=== PATIENT | female | born 1955 | race Caucasian/White ===

== ENCOUNTER → 2020-04-29 | Outpatient (CLI) | payer OTHER ==
[2020-04-29 20:10] LABS: Chol/HDL Ratio 3.38
== END | disposition home or self-care (01) ==
LOC: LABWHC1 13:13
PROVIDERS: ATTEND Nurse Practitioner Adult Health
DX: E78.2 Mixed hyperlipidemia (principal)
CPT/HCPCS: 36415; 80061

== ENCOUNTER 2020-07-16 10:30 | Inpatient (IN) | payer OTHER ==
[2020-07-16] MEDS ORDERED: SODIUM CHLORIDE 0.9% 1,000 ML IV STA (10:52)
--- NOTE | 2020-07-16 10:55 | ED ---
General Adult HPI - General Source: patient, RN notes reviewed Mode of arrival: wheelchair Limitations: physical limitation <Cecilio Marquez - Last Filed: 07/16/20 13:41> <Jalen Cabrera - Last Filed: 07/16/20 14:07> - General Chief complaint: Skin/Abscess/Foreign Body Stated complaint: Abcess in armpit Time Seen by Provider: 07/16/20 10:39 - History of Present Illness Initial comments: 65-year-old female with a past medical history of heart failure, COPD, diabetes mellitus, hypertension presents to the emergency room for a chief of abscess in the left armpit. Patient reports has been ongoing for the past week. States it is draining on its own. She has not had any fevers. It is very painful to move the left arm because of this.Patient has no other complaints at this time including shortness of breath, chest pain, abdominal pain, nausea or vomiting, headache, or visual changes. (Cecilio Marquez) - Related Data Home Medications Medication Instructions Recorded Confirmed Beclomethasone Dipropionate [Qvar 2 puff INHALATION RT-BID 08/19/14 07/16/20 40 mcg/puff] Furosemide [Lasix] 40 mg PO BID 08/19/14 07/16/20 Spironolactone [Aldactone] 25 mg PO DAILY 08/19/14 07/16/20 carvediloL [Coreg] 6.25 mg PO BID 08/19/14 07/16/20 Aspirin 81 mg PO DAILY 07/16/20 07/16/20 Atorvastatin [Lipitor] 40 mg PO HS 07/16/20 07/16/20 Cholecalciferol [Vitamin D3 (25 5,000 unit PO DAILY 07/16/20 07/16/20 Mcg = 1000 Iu)] Insulin Glargine [Lantus] 50 unit SQ QAM 07/16/20 07/16/20 lisinopriL [Zestril] 5 mg PO DAILY 07/16/20 07/16/20 metFORMIN HCL 1,000 mg PO BID 07/16/20 07/16/20 Allergies Allergy/AdvReac Type Severity Reaction Status Date / Time strawberry Allergy Intermediate Rash/Hives Verified 07/16/20 13:13 codeine AdvReac Anaphylaxis Verified 07/16/20 13:13 Review of Systems ROS Other: All systems not noted in ROS Statement are negative. <Cecilio Marquez - Last Filed: 07/16/20 13:41> ROS Other: All systems not noted in ROS Statement are negative. <Jalen Cabrera - Last Filed: 07/16/20 14:07> ROS Statement: Those systems with pertinent positive or pertinent negative responses have been documented in the HPI. Past Medical History Past Medical History: Heart Failure, COPD, Diabetes Mellitus, Eye Disorder, Hearing Disorder / Deafness, Hypertension, Musculoskeletal Disorder, Rheumatoid Arthritis (RA) Additional Past Medical History / Comment(s): deaf R ear; partially blind R eye History of Any Multi-Drug Resistant Organisms: None Reported Past Surgical History: Cholecystectomy Past Anesthesia/Blood Transfusion Reactions: No Reported Reaction Past Psychological History: No Psychological Hx Reported Smoking Status: Current every day smoker, Heavy tobacco smoker Past Alcohol Use History: Occasional Past Drug Use History: None Reported - Past Family History Brother(s) Family Medical History: Cancer <Cecilio Marquez - Last Filed: 07/16/20 13:41> General Exam Limitations: physical limitation General appearance: alert, in no apparent distress Head exam: Present: atraumatic, normocephalic, normal inspection Eye exam: Present: normal appearance, PERRL, EOMI. Absent: scleral icterus, conjunctival injection, periorbital swelling ENT exam: Present: normal exam, mucous membranes moist Neck exam: Present: normal inspection, full ROM. Absent: tenderness, meningismu s, lymphadenopathy Respiratory exam: Present: normal lung sounds bilaterally. Absent: respiratory distress, wheezes, rales, rhonchi, stridor Cardiovascular Exam: Present: regular rate, normal rhythm, normal heart sounds. Absent: systolic murmur, diastolic murmur, rubs, gallop, clicks GI/Abdominal exam: Present: soft, normal bowel sounds. Absent: distended, tenderness, guarding, rebound, rigid Extremities exam: Present: other (Patient has multiple abscesses noted of the left axilla without specific draining point as well as cellulitis.) <Cecilio Marquez - Last Filed: 07/16/20 13:41> Course <Jalen Cabrera - Last Filed: 07/16/20 14:07> Vital Signs 07/16/20 07/16/20 10:33 12:09 Temperature 97.6 F Pulse Rate 90 80 Respiratory 18 17 Rate Blood Pressure 95/51 91/51 O2 Sat by Pulse 98 98 Oximetry - Reevaluation(s) Reevaluation #1: 07/16/20 14:05 MARYAN supervision: I did personally evaluate the patient she did present with complains one week of pain in the left axilla with spontaneous drainage the exam is consistent with hidradenitis. She does have tenderness palpation to have elevated white blood cell count left shift. She is diabetic with a blood sugar 180. She does demonstrate hyponatremia. I did discuss case with Dr. Miller patient will be admitted with surgical consultation. (Jalen Cabrera) Medical Decision Making - Lab Data Result diagrams: 07/16/20 11:14 07/16/20 11:14 <Cecilio Marquez - Last Filed: 07/16/20 13:41> - Lab Data Result diagrams: 07/16/20 11:14 07/16/20 11:14 <Jalen Cabrera - Last Filed: 07/16/20 14:07> - Medical Decision Making Vitals are stable. CBC shows leukocytosis with a left shift. White blood cell count is 28.9. CMP does show hyponatremia. There is also evidence of dehy dration, patient was given fluids although does have a history of heart failure so was gently rehydrated. Patient is borderline hypotensive with systolic blood pressure in the 90s however she states this is normal for her because she is on several antihypertensives. Patient does not meet sepsis criteria as her heart rate, resp rate, and temp are normal. Patient was started on IV antibiotics for abscess. I did incise and drain the area And there was purulent material expelled. Dr. Cabrera spoke who does accept this admission, recommends surgery consultation. call center dispatcher suregon consulted (Cecilio Marquez) - Lab Data Lab Results 07/16/20 07/16/20 07/16/20 Range/Units 11:14 11:14 11:14 WBC 28.9 H (3.8-10.6) k/uL RBC 4.49 (3.80-5.40) m/uL Hgb 14.0 (11.4-16.0) gm/dL Hct 42.7 (34.0-46.0) % MCV 95.1 (80.0-100.0) fL MCH 31.1 (25.0-35.0) pg MCHC 32.7 (31.0-37.0) g/dL RDW 13.5 (11.5-15.5) % Plt Count 208 (150-450) k/uL MPV 8.2 Neutrophils % (Manual) 87 % Band Neuts % (Manual) 6 % Lymphocytes % (Manual) 1 % Monocytes % (Manual) 6 % Neutrophils # (Manual) 26.80 H (1.3-7.7) k/uL Lymphocytes # (Manual) 0.29 L (1.0-4.8) k/uL Monocytes # (Manual) 1.73 H (0-1.0) k/uL Nucleated RBCs 0 (0-0) /100 WBC Manual Slide Review Performed RBC Morphology Normal Sodium 127 L (137-145) mmol/L Potassium 4.4 (3.5-5.1) mmol/L Chloride 99 (98-107) mmol/L Carbon Dioxide 19 L (22-30) mmol/L Anion Gap 9 mmol/L BUN 35 H (7-17) mg/dL Creatinine 1.15 H (0.52-1.04) mg/dL Est GFR (CKD-EPI)AfAm 58 (>60 ml/min/1.73 sqM) Est GFR (CKD-EPI)NonAf 51 (>60 ml/min/1.73 sqM) Glucose 180 H (74-99) mg/dL POC Glucose (mg/dL) (75-99) mg/dL POC Glu Hair Cutter ID Plasma Lactic Acid Mike 1.9 (0.7-2.0) mmol/L Calcium 8.4 (8.4-10.2) mg/dL Total Bilirubin 1.1 (0.2-1.3) mg/dL AST 22 (14-36) U/L ALT 19 (4-34) U/L Alkaline Phosphatase 131 H (38-126) U/L Total Protein 6.4 (6.3-8.2) g/dL Albumin 3.0 L (3.5-5.0) g/dL 07/16/20 Range/Units 13:28 WBC (3.8-10.6) k/uL RBC (3.80-5.40) m/uL Hgb (11.4-16.0) gm/dL Hct (34.0-46.0) % MCV (80.0-100.0) fL MCH (25.0-35.0) pg MCHC (31.0-37.0) g/dL RDW (11.5-15.5) % Plt Count (150-450) k/uL MPV Neutrophils % (Manual) % Band Neuts % (Manual) % Lymphocytes % (Manual) % Monocytes % (Manual) % Neutrophils # (Manual) (1.3-7.7) k/uL Lymphocytes # (Manual) (1.0-4.8) k/uL Monocytes # (Manual) (0-1.0) k/uL Nucleated RBCs (0-0) /100 WBC Manual Slide Review RBC Morphology Sodium (137-145) mmol/L Potassium (3.5-5.1) mmol/L Chloride (98-107) mmol/L Carbon Dioxide (22-30) mmol/L Anion Gap mmol/L BUN (7-17) mg/dL Creatinine (0.52-1.04) mg/dL Est GFR (CKD-EPI)AfAm (>60 ml/min/1.73 sqM) Est GFR (CKD-EPI)NonAf (>60 ml/min/1.73 sqM) Glucose (74-99) mg/dL POC Glucose (mg/dL) 169 H (75-99) mg/dL POC Glu Hair Cutter ID Reed Miller Plasma Lactic Acid Mike (0.7-2.0) mmol/L Calcium (8.4-10.2) mg/dL Total Bilirubin (0.2-1.3) mg/dL AST (14-36) U/L ALT (4-34) U/L Alkaline Phosphatase (38-126) U/L Total Protein (6.3-8.2) g/dL Albumin (3.5-5.0) g/dL Disposition Is patient prescribed a controlled substance at d/c from ED?: No <Cecilio Marquez - Last Filed: 07/16/20 13:41> <Jalen Cabrera - Last Filed: 07/16/20 14:07> Clinical Impression: Abscess, Leukocytosis, Hyponatremia Disposition: ADMITTED IP TO THIS HOSP
[2020-07-16] MEDS ORDERED: SODIUM CHLORIDE 0.9% 500 ML 500 ML IV STA (10:59)
[2020-07-16] MEDS ORDERED: cefTRIAXone IN SWFI 1,000 MG/10 ML SYRINGE IVP STA (10:59)
[2020-07-16 11:36] LABS: HCT 42.7 % (34.0-46.0); MCH 31.1 pg (25.0-35.0); MCHC 32.7 g/dL (31.0-37.0); MCV 95.1 fL (80.0-100.0); Mean Platelet Volume 8.2; Platelet Count 208 k/uL (150-450); RBC 4.49 m/uL (3.80-5.40); RDW 13.5 % (11.5-15.5); WBC 28.9 k/uL (3.8-10.6)
[2020-07-16 11:37] LABS: Calcium 8.4 mg/dL (8.4-10.2); Total Bilirubin 1.1 mg/dL (0.2-1.3); Total Protein 6.4 g/dL (6.3-8.2)
[2020-07-16 11:51] LABS: Potassium 4.4 mmol/L (3.5-5.1)
[2020-07-16 11:57] LABS: Band Neutrophils % 6 %; Lymphocytes # (M) 0.29 k/uL (1.0-4.8); Monocytes # (M) 1.73 k/uL (0-1.0); Neutrophils % (M) 87 %; Nucleated Red Blood Cells 0 /100 WBC (0-0); Total Cells Counted 100
[2020-07-16] MEDS ORDERED: LIDOCAINE 1% INJ 10MG/ML (20 ML MDV) SQ ONE (12:24)
[2020-07-16] MEDS ORDERED: KETOROLAC 15 MG/ML 1 ML VIAL IVP STA (12:24)
[2020-07-16] MEDS ORDERED: VANCOMYCIN IV PER PHARMACY 1 EACH MISC MISCELLANE PRN (12:36)
[2020-07-16] MEDS ORDERED: VANCOMYCIN 2,000 MG in SODIUM CHLORIDE 0.9% 500 ML 500 ML IVPB STA (12:40)
[2020-07-16] MEDS ORDERED: NALOXONE 0.4 MG/ML 1 ML VIAL IV PRN (12:51)
[2020-07-16] MEDS: SODIUM CHLORIDE 0.9% 1,000 ML IV SCH (13:36)
[2020-07-16 13:40] LABS: Glucose,Whole Blood 169 mg/dL (75-99)
[2020-07-16] MEDS: ACETAMINOPHEN TAB 325 MG TAB PO PRN (15:39)
[2020-07-16 17:37] LABS: Glucose,Whole Blood 170 mg/dL (75-99)
[2020-07-16] MEDS: carvediloL 6.25 MG TAB PO SCH (17:59)
[2020-07-16] MEDS: INSULIN ASPART (NovoLOG) 100 UNIT/ML VIAL SQ SCH ×2 (17:59→22:25)
[2020-07-16] MEDS ORDERED: RX INFO: IV CONTRAST WAS GIVEN 1 EACH MISC MISCELLANE PRN (18:19)
[2020-07-16] MEDS: FLUTICASONE 110 MCG INHALER INHALATION SCH (18:34)
[2020-07-16] MEDS: traMADol 50 MG TAB PO SCH (19:41)
[2020-07-16] MEDS: metroNIDAZOLE-NS PMX 500 MG in SALINE 1 100ML.BAG IVPB SCH (19:42)
--- NOTE | 2020-07-16 19:52 | CT ---
EXAMINATION TYPE: CT chest w con DATE OF EXAM: 07/16/2020 COMPARISON: 11/20/2012 HISTORY: non-healing necrotic wound to left axilla/chest CT DLP: 1015.3 mGycm Automated exposure control for dose reduction was used. CONTRAST: Performed with IV Contrast, patient injected with 80cc mL of Isovue 300. Images were obtained from the thoracic inlet to the diaphragm with IV contrast. The lungs are clear of infiltrate. There is no pleural effusion. There is no mediastinal adenopathy. Thoracic aorta is intact. There is no evidence of aneurysm or dissection. There are no hilar masses. There is no evidence of a pneumothorax. There is soft tissue air on the left anterior chest wall and extending into the inferior aspect of th e left upper arm. Soft tissue air extends inferiorly to the diaphragm in the subcutaneous fat. There is air beneath the pectoralis muscle. The largest collection of air is anterior to the left axilla in the subcutaneous fat. This measures 4.5 cm in thickness. There are spondylotic changes in the thoracic spine. There is anterior spurring in the lower thoracic spine with 20% anterior wedging of T11 vertebra. There is mild lower thoracic kyphosis.. IMPRESSION: Soft tissue air on the left chest wall extending into the left axilla consistent with a wound. Comple te extent of the air is not evaluated. Air extends into the upper arm. No evidence of a discrete drainable abscess fluid collection. No acute abnormality within the chest. There is clearing of the bilateral pleural effusions and right lower lobe pneumonia and interstitial pulmonary edema compared to old exam.
--- NOTE | 2020-07-16 20:50 | P.HPIM ---
History of Present Illness H&P Date: 07/16/20 Chief Complaint: cysts, abscess of the left axilla, severe hyponatremia, severe leukocytosis 65-year-old morbidly obese female with past medical history of cardiomyopathy, congestive heart failure, type 2 diabetes, hyperlipidemia, possible obstructive sleep apnea who had previous history of abscess who presented to the emergency department at [facility] today 07/16/2020 with complaint of for drainage abscess and discomfort in the left axilla. Remember having similar episode a few years ago of the right side ended up with sepsis and infection spread to the lower abdominal area ended up having to have a wound care and wound VAC with IV antibiotic for long time. Patient apparently started having drainage with a black spot in the axilla with smell coming from that area with copious amount of drainage for the last 48 hours. Developed to have fever and chills and overall not feeling well well she was seen and evaluated her white blood cell weren't 28th 1900 left shift surprisingly had severe hyponatremia with sodium of 127 lactic acid was only 1.9 blood sugar was 169 mildly stage III chronic kidney disease was found as well. She was giving 1 g of Vanco along with ceftriaxone culture was done patient was admitted to the hospital will be seen general surgery along with infectious disease. Patient does not remember having any injury no shaving no hair follicular problem recently in her opinion this is spontaneous happen by itself. Also the smell and the look of this area looks like more necrotic tissue as necrotizing fasciitis. We'll continue antibiotics and add anaerobic coverage also will involve infectious disease and CAT scan of the axilla will be done patient most likely will need to go for I and D. Review of Systems CONSTITUTIONAL: morbidly obese no acute respiratory distress EYES: No icterus sclerae, no conjunctivitis. EARS, NOSE, MOUTH, THROAT, and FACE: No sore throat, lymphadenopathy, carotid bruits or deformity. RESPIRATORY: decreased breaths on bilaterally with mild shortness of breath no cough or wheezes. CARDIOVASCULAR: No CP, Palpitation, PND, Orthopnea, or angina. GASTROINTESTINAL: No Abd pain, Nausea or vomiting, no Diarrhea or constipation, No GI Bleed, no distention or masses. GENITOURINARY: Negative for Hematuria or UTI, no kidney stones. INTEGUMENT/BREAST: Negative for any muscular injury with mild osteoarthritis.significant discomfort in the left axilla with significant drainage.. HEMATOLOGIC/LYMPHATIC: Negative for bleed or purpura. MUSCULOSKELTAL: Negative for Myalgia or arthralgia.more involvement of the left axilla with drainage NEURLOGICAL: No LOC, Sz or syncope, blurred vision dizziness or abnormality.. BEHAVIORAL/PSYCH: Negative. ENDOCRINE: Negative. family history: Father dying is 57 from motor vehicle accident: Mother dying in her 64 from cardiac event, patient had 2 brothers and one sister doesn't know much about them and never had any children. Social history: She smokes half to 1 pack a day for 40 years, no eye: Abuse, no drug use, does not use any CPAP or BiPAP at home no nebulizer or oxygen, patient has been and lives alone. 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 with wound vac 2018 Past Anesthesia/Blood Transfusion Reactions: No Reported Reaction Past Psychological History: Anxiety, Panic Disorder Smoking Status: Current every day smoker Past Alcohol Use History: Occasional Past Drug Use History: None Reported - Past Family History Brother(s) Family Medical History: Cancer Mother Family Medical History: Coronary Artery Disease (CAD), Diabetes Mellitus Medications and Allergies Home Medications Medication Instructions Recorded Confirmed Type Beclomethasone Dipropionate [Qvar 2 puff INHALATION RT-BID 08/19/14 07/16/20 History 40 mcg/puff] Furosemide [Lasix] 40 mg PO BID 08/19/14 07/16/20 History Spironolactone [Aldactone] 25 mg PO DAILY 08/19/14 07/16/20 History carvediloL [Coreg] 6.25 mg PO BID 08/19/14 07/16/20 History Aspirin 81 mg PO DAILY 07/16/20 07/16/20 History Atorvastatin [Lipitor] 40 mg PO HS 07/16/20 07/16/20 History Cholecalciferol [Vitamin D3 (25 5,000 unit PO DAILY 07/16/20 07/16/20 History Mcg = 1000 Iu)] Insulin Glargine [Lantus] 50 unit SQ QAM 07/16/20 07/16/20 History lisinopriL [Zestril] 5 mg PO DAILY 07/16/20 07/16/20 History metFORMIN HCL 1,000 mg PO BID 07/16/20 07/16/20 History Allergies Allergy/AdvReac Type Severity Reaction Status Date / Time strawberry Allergy Intermediate Rash/Hives Verified 07/16/20 15:24 codeine AdvReac Severe Anaphylaxis Verified 07/16/20 15:24 Physical Exam Vitals: Vital Signs Temp Pulse Pulse Resp BP BP Pulse Ox 07/16/20 14:35 97.8 F 83 20 98/56 99 07/16/20 12:09 80 17 91/51 98 07/16/20 10:33 97.6 F 90 18 95/51 98 Intake and Output 07/16/20 07/16/20 07/16/20 06:59 14:59 22:59 Other: Weight 130.635 kg General Appearance: Alert, cooperative, no distress, morbidly obese does not look in any distress and looked older than her age Neck HEENT: Supple, no lymphadenopathy, no thyroid enlargement, no carotid bruits. Lungs: decreased breath some bilaterally with fine rhonchi has mild crackles in the right base has mild expiratory wheezes. Chest Wall: decreasel expansion with deep inspiration no tenderness and no deformity was found on exam, no costochondral pain or discomfort.looking at the lateral side of the left side of the chest wall area close to the connection to the abscess in the axilla is a slight fluctuation with inflammation and infiltrate with no sign of a year under the skin. Heart: Regular rate and rhythm, S1, S2 normal, no murmur, rub or gallop. Back: Symmetric, no curvature, ROM normal, no CVA tenderness. Abdomen: Soft, non-tender, bowel sounds active all four quadrants, no masses, no organomegaly. Extremities: left axilla has involvement of 10 time 10 cm large abscess With a blackhead very large the drainage is very smelly and area looks necrotic at the time with slight lymph node enlarge in the axilla as well. Pulses: 2+ and symmetric. Skin: Skin color, texture, tugor normal, no rashes or lesions. Neurologic: Alert oriented x3 cranial nerves II through XII intact, no motor deficit, no abnormal balance or gait. Results CBC & Chem 7: 07/16/20 11:14 07/16/20 11:14 Labs: Abnormal Lab Results - Last 24 Hours (Table) 07/16/20 07/16/20 07/16/20 Range/Units 11:14 11:14 13:28 WBC 28.9 H (3.8-10.6) k/uL Neutrophils # (Manual) 26.80 H (1.3-7.7) k/uL Lymphocytes # (Manual) 0.29 L (1.0-4.8) k/uL Monocytes # (Manual) 1.73 H (0-1.0) k/uL Sodium 127 L (137-145) mmol/L Carbon Dioxide 19 L (22-30) mmol/L BUN 35 H (7-17) mg/dL Creatinine 1.15 H (0.52-1.04) mg/dL Glucose 180 H (74-99) mg/dL POC Glucose (mg/dL) 169 H (75-99) mg/dL Alkaline Phosphatase 131 H (38-126) U/L Albumin 3.0 L (3.5-5.0) g/dL Thrombosis Risk Factor Assmnt - DVT/VTE Prophylaxis DVT/VTE Prophylaxis: Pharmacologic Prophylaxis ordered, Mechanical Prophylaxis ordered - Choose All That Apply Each Factor Represents 1 point: Abnormal pulmonary function (COPD), Obesity (BMI >25) Each Risk Factor Represents 2 Points: Age 61-74 years Thrombosis Risk Factor Assessment Total Risk Factor Score: 4 Thrombosis Risk Factor Assessment Level: Moderate Risk Assessment and Plan Assessment: 1 sepsis secondary to abscess and most likely necrotizing fasciitis in the left axilla, continue current antibiotic infectious disease and general surgery will be involved. 2 abscess and necrotizing fasciitis in the left axilla: Patient will be going for CAT scan of the area will be kept nothing by mouth for possible surgery tomorrow to clear the whole thing my feared she might have some involvement spreading to the chest wall area and all waiting for culture continue vancomycin Rocephin and Flagyl for now. Continue pain management and topical care. 3 severe leukocytosis: Secondary to abscess and sepsis continue antibiotic repeat CBC in 24 hours. 4 severe hyponatremia: Most likely SIADH from the severity of the infection will watch sodium over the next 24 hours specially after treating infection. 5 severe congestive heart failure: Patient has been seen Dr. Caputo cardiology regular basis and has been on regular routine with Coreg along with furosemide, spironolactone and lisinopril continue medication. 6 type 2 diabetes: Not clear what her last A1c another A1c continue Accu-Chek with sliding scales coverage, hold metformin until CAT scan is completed the meanwhile continue patient on Levemir 50 units in the morning along with a CHS sliding scales and add 5-10 units of NovoLog before meals. 7 hyperlipidemia: Continue patient on atorvastatin 40 mg daily.. 8 chronic kidney disease: Stage III, repeat BUN/creatinine next 24 hours continue hydration for now. 9 GI prophylaxis: Patient will be on Pepcid 20 mg daily. 10 smoking cessation: Nicotine patch 14 mg be started for now. 11 DVT prophylaxis: Patient will be on heparin 5000 units subcutaneous every 8 hours. CODE STATUS: Full code. Admit patient to the inpatient service for more than 2 night stay.
[2020-07-16] MEDS ORDERED: metFORMIN 500 MG TAB PO SCH (21:00)
[2020-07-16] MEDS: FUROSEMIDE 40 MG TAB PO SCH (21:04)
[2020-07-16 21:11] LABS: Glucose,Whole Blood 232 mg/dL (75-99)
[2020-07-16] MEDS: ATORVASTATIN 40 MG TAB PO SCH (22:26)
[2020-07-17] MEDS: traMADol 50 MG TAB PO SCH ×4 (00:34→22:21)
[2020-07-17] MEDS: HEPARIN SODIUM,PORCINE 5,000 UNIT/ML 1 ML VIAL SQ SCH ×3 (00:35→16:39)
[2020-07-17] MEDS: metroNIDAZOLE-NS PMX 500 MG in SALINE 1 100ML.BAG IVPB SCH ×2 (02:06→10:10)
[2020-07-17] MEDS: VANCOMYCIN 2,000 MG in SODIUM CHLORIDE 0.9% 500 ML 500 ML IVPB SCH (05:54)
[2020-07-17] MEDS: SODIUM CHLORIDE 0.9% 1,000 ML IV SCH (05:54)
[2020-07-17 06:22] LABS: HCT 40.7 % (34.0-46.0); HGB 13.8 gm/dL (11.4-16.0); MCH 32.7 pg (25.0-35.0); MCHC 33.8 g/dL (31.0-37.0); MCV 96.5 fL (80.0-100.0); Platelet Count 251 k/uL (150-450); RBC 4.21 m/uL (3.80-5.40); RDW 13.2 % (11.5-15.5); WBC 26.6 k/uL (3.8-10.6)
[2020-07-17 06:34] LABS: Albumin 2.7 g/dL (3.5-5.0); Calcium 7.9 mg/dL (8.4-10.2); Potassium 3.9 mmol/L (3.5-5.1); Total Bilirubin 0.6 mg/dL (0.2-1.3); Total Protein 5.9 g/dL (6.3-8.2)
[2020-07-17 06:38] LABS: Glucose,Whole Blood 148 mg/dL (75-99)
[2020-07-17] MEDS: INSULIN DETEMIR (LEVEMIR) 100 UNIT/ML SYR SQ SCH (06:40)
[2020-07-17] MEDS: carvediloL 6.25 MG TAB PO SCH ×2 (06:40→16:46)
[2020-07-17] MEDS: INSULIN ASPART (NovoLOG) 100 UNIT/ML VIAL SQ SCH ×3 (06:40→20:15)
[2020-07-17] MEDS: CHOLECALCIFEROL 1,000 UNIT TAB PO SCH (08:27)
[2020-07-17] MEDS: ASPIRIN 81 MG PO SCH (08:27)
[2020-07-17] MEDS: FUROSEMIDE 40 MG TAB PO SCH (08:29)
[2020-07-17] MEDS: lisinopriL 5 MG TAB PO SCH (08:29)
[2020-07-17] MEDS: SPIRONOLACTONE 25 MG TAB PO SCH (08:29)
[2020-07-17] MEDS: NICOTINE 14MG/24HR PATCH TRANSDERM SCH (08:37)
[2020-07-17] MEDS: FLUTICASONE 110 MCG INHALER INHALATION SCH ×2 (08:49→19:35)
[2020-07-17] MEDS ORDERED: cefTRIAXone IN SWFI 1,000 MG/10 ML SYRINGE IVP SCH (09:00)
--- NOTE | 2020-07-17 10:44 | P.PN ---
Subjective Progress Note Date: 07/17/20 HISTORY OF PRESENT ILLNESS 65-year-old morbidly obese female with past medical history of cardiomyopathy, congestive heart failure, type 2 diabetes, hyperlipidemia, possible obstructive sleep apnea who had previous history of abscess who presented to the emergency department at [facility] today 07/16/2020 with complaint of for drainage abscess and discomfort in the left axilla. Remember having similar episode a few years ago of the right side ended up with sepsis and infection spread to the lower abdominal area ended up having to have a wound care and wound VAC with IV antibiotic for long time. Patient apparently started having drainage with a black spot in the axilla with smell coming from that area with copious amount of drainage for the last 48 hours. Developed to have fever and chills and overall not feeling well well she was seen and evaluated her white blood cell weren't 28th 1900 left shift surprisingly had severe hyponatremia with sodium of 127 lactic acid was only 1.9 blood sugar was 169 mildly stage III chronic kidney disease was found as well. She was giving 1 g of Vanco along with ceftriaxone culture was done patient was admitted to the hospital will be seen general surgery along with infectious disease. Patient does not remember having any injury no shaving no hair follicular problem recently in her opinion this is spontaneous happen by itself. Also the smell and the look of this area looks like more necrotic tissue as necrotizing fasciitis. We'll continue antibiotics and add anaerobic coverage also will involve infectious disease and CAT scan of the axilla will be done patient most likely will need to go for I and D. 07/17: Patient is seen today on the pediatric medical floor for follow-up. CAT scan revealed soft tissue air on the left chest wall extending into the left axilla consistent with wound. Complete extent of the air is not evaluated. Air extends into the upper arm. No evidence of discrete renal abscess fluid collection. Consults in place of general surgery and infectious disease. Patient encouraged to remain nothing by mouth until evaluated by general surgery. She has been afebrile, heart rate 89, blood pressure 98/47, pulse ox 90% on room air. Evelin BC 26.6, hemoglobin 13.8, platelet count 251. Sodium 131, potassium 3.9, chloride 102, CO2 19, BUN 43 and creatinine 1.08. Blood sugars running between 148 and 232. Alkaline phosphatase 128. Patient is currently on ceftriaxone, Flagyl and vancomycin. REVIEW OF SYSTEMS CONSTITUTIONAL: morbidly obese no acute respiratory distress. Denies fevers. EYES: No icterus sclerae, no conjunctivitis. EARS, NOSE, MOUTH, THROAT, and FACE: No sore throat, lymphadenopathy, carotid bruits or deformity. RESPIRATORY: decreased breaths on bilaterally with mild shortness of breath no cough or wheezes. CARDIOVASCULAR: No CP, Palpitation, PND, Orthopnea, or angina. GASTROINTESTINAL: No Abd pain, Nausea or vomiting, no Diarrhea or constipation, No GI Bleed, no distention or masses. GENITOURINARY: Negative for Hematuria or UTI, no kidney stones. INTEGUMENT/BREAST: Negative for any muscular injury with mild osteoarthritis.significant discomfort in the left axilla with significant drainage.. HEMATOLOGIC/LYMPHATIC: Negative for bleed or purpura. MUSCULOSKELTAL: Negative for Myalgia or arthralgia.more involvement of the left axilla with drainage NEURLOGICAL: No LOC, Sz or syncope, blurred vision dizziness or abnormality.. BEHAVIORAL/PSYCH: Negative. ENDOCRINE: Negative. PHYSICAL EXAMINATION General Appearance: Alert, cooperative, no distress, morbidly obese does not look in any distress and looked older than her age Neck HEENT: Supple, no lymphadenopathy, no thyroid enlargement, no carotid bruits. Lungs: decreased breath some bilaterally with fine rhonchi has mild crackles in the right base has mild expiratory wheezes. Chest Wall: decreasel expansion with deep inspiration no tenderness and no deformity was found on exam, no costochondral pain or discomfort.looking at the lateral side of the left side of the chest wall area close to the connection to the abscess in the axilla is a slight fluctuation with inflammation and infiltrate with no sign of a year under the skin. Heart: Regular rate and rhythm, S1, S2 normal, no murmur, rub or gallop. Back: Symmetric, no curvature, ROM normal, no CVA tenderness. Abdomen: Soft, non-tender, bowel sounds active all four quadrants, no masses, no organomegaly. Extremities: left axilla has involvement of 10 time 10 cm large abscess With a blackhead very large the drainage is very smelly and area looks necrotic at the time with slight lymph node enlarge in the axilla as well. Large dressing in place. Pulses: 2+ and symmetric. Skin: Skin color, texture, tugor normal, no rashes or lesions. Neurologic: Alert oriented x3 cranial nerves II through XII intact, no motor deficit, no abnormal balance or gait. ASSESSMENT AND PLAN 1 sepsis secondary to abscess and most likely necrotizing fasciitis in the left axilla, continue current antibiotic infectious disease and general surgery will be involved. Continue IV antibiotics, consult with general surgery and infectious disease. Patient to maintain nothing by mouth status. 2 abscess and necrotizing fasciitis in the left axilla. CAT scan as above. Wound culture in progress. Continue IV antibiotics 3 severe leukocytosis: Secondary to abscess and sepsis continue antibiotic repeat CBC in 24 hours. 4 severe hyponatremia: Most likely SIADH from the severity of the infection will watch sodium over the next 24 hours specially after treating infection. 5 severe congestive heart failure, probable diastolic: Patient has been seen Dr. Caputo cardiology regular basis and has been on regular routine with Coreg along with furosemide, spironolactone and lisinopril continue medication. 6 type 2 diabetes. A1c pending. Hold metformin for CAT scan. Continue Levemir 50 units in the morning along with sliding scales NovoLog. 7 hyperlipidemia: Continue patient on atorvastatin 40 mg daily.. 8 chronic kidney disease: Stage III, repeat BUN/creatinine next 24 hours con tinue hydration for now. 9 GI prophylaxis: Patient will be on Pepcid 20 mg daily. 10 smoking cessation: Nicotine patch 14 mg be started for now. 11 DVT prophylaxis: Patient will be on heparin 5000 units subcutaneous every 8 hours. CODE STATUS: Full code. DISCHARGE PLAN To be determined. Most likely return home. Impression and plan of care have been directed as dictated by the signing physician. Kailee Teran nurse practitioner acting as scribe for signing physician. Objective - Vital Signs Vital signs: Vital Signs Temp 97.6 F 07/17/20 02:13 Pulse 89 07/17/20 02:13 Resp 20 07/17/20 02:13 BP 98/47 07/17/20 02:13 Pulse Ox 98 07/17/20 02:13 Intake & Output 07/16/20 07/17/20 07/17/20 18:59 06:59 18:59 Intake Total 480 Balance 480 Weight 130.635 kg Intake: Oral 480 Other: Voiding Method Toilet # Voids 2 - Labs CBC & Chem 7: 07/17/20 06:08 07/17/20 06:08 Labs: Abnormal Lab Results - Last 24 Hours (Table) 07/16/20 07/16/20 07/16/20 Range/Units 11:14 11:14 13:28 WBC 28.9 H (3.8-10.6) k/uL Neutrophils # (Manual) 26.80 H (1.3-7.7) k/uL Lymphocytes # (Manual) 0.29 L (1.0-4.8) k/uL Monocytes # (Manual) 1.73 H (0-1.0) k/uL Sodium 127 L (137-145) mmol/L Carbon Dioxide 19 L (22-30) mmol/L BUN 35 H (7-17) mg/dL Creatinine 1.15 H (0.52-1.04) mg/dL Glucose 180 H (74-99) mg/dL POC Glucose (mg/dL) 169 H (75-99) mg/dL Calcium (8.4-10.2) mg/dL Alkaline Phosphatase 131 H (38-126) U/L Total Protein (6.3-8.2) g/dL Albumin 3.0 L (3.5-5.0) g/dL 07/16/20 07/16/20 07/17/20 Range/Units 17:35 21:10 06:08 WBC 26.6 H (3.8-10.6) k/uL Neutrophils # (Manual) (1.3-7.7) k/uL Lymphocytes # (Manual) (1.0-4.8) k/uL Monocytes # (Manual) (0-1.0) k/uL Sodium (137-145) mmol/L Carbon Dioxide (22-30) mmol/L BUN (7-17) mg/dL Creatinine (0.52-1.04) mg/dL Glucose (74-99) mg/dL POC Glucose (mg/dL) 170 H 232 H (75-99) mg/dL Calcium (8.4-10.2) mg/dL Alkaline Phosphatase (38-126) U/L Total Protein (6.3-8.2) g/dL Albumin (3.5-5.0) g/dL 07/17/20 07/17/20 Range/Units 06:08 06:35 WBC (3.8-10.6) k/uL Neutrophils # (Manual) (1.3-7.7) k/uL Lymphocytes # (Manual) (1.0-4.8) k/uL Monocytes # (Manual) (0-1.0) k/uL Sodium 131 L (137-145) mmol/L Carbon Dioxide 19 L (22-30) mmol/L BUN 43 H (7-17) mg/dL Creatinine 1.08 H (0.52-1.04) mg/dL Glucose 154 H (74-99) mg/dL POC Glucose (mg/dL) 148 H (75-99) mg/dL Calcium 7.9 L (8.4-10.2) mg/dL Alkaline Phosphatase 128 H (38-126) U/L Total Protein 5.9 L (6.3-8.2) g/dL Albumin 2.7 L (3.5-5.0) g/dL Microbiology - Last 24 Hours (Table) 07/16/20 14:35 Wound Culture - Preliminary Axilla - Left
[2020-07-17 12:02] LABS: Glucose,Whole Blood 146 mg/dL (75-99)
[2020-07-17] MEDS ORDERED: HYDROmorphone 1 MG/ML 1 ML SYRINGE IVP STA (12:11)
--- NOTE | 2020-07-17 12:41 | P.CONS ---
History of Present Illness - Reason for Consult Consult date: 07/17/20 Necrotizing fasciitis, cellulitis left axilla - History of Present Illness HISTORY OF PRESENT ILLNESS This is a 65-year-old female with extensive past medical history of cardiomyopathy, heart failure, diabetes mellitus type 2, hyperlipidemia, obstructive sleep apnea, morbid obesity. Patient presented with complaints of a draining abscess in the left axilla that apparently has been going on for a month and pain 10/10 with fever. Patient had increasing amount of drainage from the area over the past 24 hours. Patient presented to [facility] emergency center. She was afebrile, heart rate 90, blood pressure 95/51, pulse ox 98% on room air. CBC initially 28.9 was repeated 26.6. Sodium initially 127 repeated 131. BUN 35 and creatinine 1.15. Alkaline phosphatase 131. Lactic acid 1.9. CAT scan revealed soft tissue air on the left chest wall extending into the left axilla consistent with wound. Complete extent of the air is not evaluated. Air extends into the upper arm. No evidence of discrete renal abscess fluid collection. Consults in place of general surgery as well. Patient is currently on IV antibiotics with ceftriaxone, Flagyl, vancomycin. REVIEW OF SYSTEMS Constitutional: Reports fever, Reports chills, no night sweats. No weight change. No weakness, fatigue or lethargy. EENT: No headache. No nasal drainage or congestion. No epistaxis. No sore throat. Lungs: No shortness of breath, cough, no sputum production. No wheezing. Cardiovascular: No chest pain, no lower extremity edema. No lightheadedness or dizziness. No syncopal episodes. Abdominal: No abdominal pain. No nausea, vomiting. No diarrhea. No constipation. No loss of appetite. Genitourinary: No dysuria, increased frequency, urgency. No urinary retention. Musculoskeletal: No myalgias. No muscle weakness. Integumentary: Reports wounds. No rash or pruritus. Neurologic: No aphasia. No facial droop. No change in mentation. Endocrine: No abnormal blood sugars. PHYSICAL EXAMINATION Gen: This is a 65-year-old morbidly obese female. She is resting on the edge of the bed and appears to be comfortable. No respiratory distress noted. VS: Afebrile, heart rate 60, blood pressure 95/58, pulse ox 93% on room air. HEENT: Head is atraumatic, normocephalic. Pupils equal, round. Sclerae is anicteric. NECK: Supple. No JVD. No lymphadenopathy. No thyromegaly. LUNGS: Clear to auscultation. No wheezes or rhonchi. No intercostal retractions. HEART: Regular rate and rhythm. No murmur. ABDOMEN: Soft. Bowel sounds are present. No masses. No tenderness. EXTREMITIES: No pedal edema. No calf tenderness. The left axilla large dressing in place with large area with significant foul-smelling drainage. NEUROLOGICAL: Patient is awake, alert and oriented x3. Cranial nerves 2 through 12 are grossly intact. ASSESSMENT Sepsis secondary to left axilla abscess Diabetes mellitus type 2 Chronic kidney disease Tobacco use and dependence PLAN Discontinue ceftriaxone and Flagyl Continue vancomycin Add Unasyn 3 g IV piggyback every 6 hours Consult with general surgery for I&D and cultures Continue supportive care Further recommendations based on patient's clinical course Thank you kindly for this consultation The above dictated assessment and findings were discussed with Dr. Martínez. The impression and plan of care have been directed as dictated. Kailee Teran nurse practitioner acting as scribe for Dr. Martínez. 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 with wound vac 2018 Past Anesthesia/Blood Transfusion Reactions: No Reported Reaction Past Psychological History: Anxiety, Panic Disorder Smoking Status: Current every day smoker Past Alcohol Use History: Occasional Past Drug Use History: None Reported - Past Family History Brother(s) Family Medical History: Cancer Mother Family Medical History: Coronary Artery Disease (CAD), Diabetes Mellitus Medications and Allergies Home Medications Medication Instructions Recorded Confirmed Type Beclomethasone Dipropionate [Qvar 2 puff INHALATION RT-BID 08/19/14 07/16/20 History 40 mcg/puff] Furosemide [Lasix] 40 mg PO BID 08/19/14 07/16/20 History Spironolactone [Aldactone] 25 mg PO DAILY 08/19/14 07/16/20 History carvediloL [Coreg] 6.25 mg PO BID 08/19/14 07/16/20 History Aspirin 81 mg PO DAILY 07/16/20 07/16/20 History Atorvastatin [Lipitor] 40 mg PO HS 07/16/20 07/16/20 History Cholecalciferol [Vitamin D3 (25 5,000 unit PO DAILY 07/16/20 07/16/20 History Mcg = 1000 Iu)] Insulin Glargine [Lantus] 50 unit SQ QAM 07/16/20 07/16/20 History lisinopriL [Zestril] 5 mg PO DAILY 07/16/20 07/16/20 History metFORMIN HCL 1,000 mg PO BID 07/16/20 07/16/20 History Allergies Allergy/AdvReac Type Severity Reaction Status Date / Time strawberry Allergy Intermediate Rash/Hives Verified 07/16/20 15:24 codeine AdvReac Severe Chest Pain Verified 07/17/20 12:15 Physical Exam Vitals: Vital Signs Temp Pulse Pulse Resp BP BP Pulse Ox 07/17/20 08:00 97.9 F 60 24 95/58 93 L 07/17/20 02:13 97.6 F 89 20 98/47 98 07/16/20 20:10 97.8 F 84 20 92/59 97 07/16/20 14:35 97.8 F 83 20 98/56 99 07/16/20 12:09 80 17 91/51 98 Intake and Output 07/16/20 07/17/20 07/17/20 22:59 06:59 14:59 Intake Total 480 120 Balance 480 120 Intake: Oral 480 120 Other: Voiding Method Toilet Toilet # Voids 2 Results CBC & Chem 7: 07/17/20 06:08 07/17/20 06:08 Labs: Abnormal Lab Results - Last 24 Hours (Table) 07/16/20 07/16/20 07/16/20 Range/Units 11:14 11:14 13:28 WBC 28.9 H (3.8-10.6) k/uL Neutrophils # (Manual) 26.80 H (1.3-7.7) k/uL Lymphocytes # (Manual) 0.29 L (1.0-4.8) k/uL Monocytes # (Manual) 1.73 H (0-1.0) k/uL Sodium 127 L (137-145) mmol/L Carbon Dioxide 19 L (22-30) mmol/L BUN 35 H (7-17) mg/dL Creatinine 1.15 H (0.52-1.04) mg/dL Glucose 180 H (74-99) mg/dL POC Glucose (mg/dL) 169 H (75-99) mg/dL Calcium (8.4-10.2) mg/dL Alkaline Phosphatase 131 H (38-126) U/L Total Protein (6.3-8.2) g/dL Albumin 3.0 L (3.5-5.0) g/dL 07/16/20 07/16/20 07/17/20 Range/Units 17:35 21:10 06:08 WBC 26.6 H (3.8-10.6) k/uL Neutrophils # (Manual) (1.3-7.7) k/uL Lymphocytes # (Manual) (1.0-4.8) k/uL Monocytes # (Manual) (0-1.0) k/uL Sodium (137-145) mmol/L Carbon Dioxide (22-30) mmol/L BUN (7-17) mg/dL Creatinine (0.52-1.04) mg/dL Glucose (74-99) mg/dL POC Glucose (mg/dL) 170 H 232 H (75-99) mg/dL Calcium (8.4-10.2) mg/dL Alkaline Phosphatase (38-126) U/L Total Protein (6.3-8.2) g/dL Albumin (3.5-5.0) g/dL 07/17/20 07/17/20 Range/Units 06:08 06:35 WBC (3.8-10.6) k/uL Neutrophils # (Manual) (1.3-7.7) k/uL Lymphocytes # (Manual) (1.0-4.8) k/uL Monocytes # (Manual) (0-1.0) k/uL Sodium 131 L (137-145) mmol/L Carbon Dioxide 19 L (22-30) mmol/L BUN 43 H (7-17) mg/dL Creatinine 1.08 H (0.52-1.04) mg/dL Glucose 154 H (74-99) mg/dL POC Glucose (mg/dL) 148 H (75-99) mg/dL Calcium 7.9 L (8.4-10.2) mg/dL Alkaline Phosphatase 128 H (38-126) U/L Total Protein 5.9 L (6.3-8.2) g/dL Albumin 2.7 L (3.5-5.0) g/dL Microbiology - Last 24 Hours (Table) 07/16/20 14:35 Gram Stain - Preliminary Axilla - Left Wound Culture - Preliminary
[2020-07-17] MEDS: AMPICILLIN-SULBACTAM 3 GM in SODIUM CHLORIDE 0.9% 100 ML IVPB SCH ×2 (13:43→17:49)
--- NOTE | 2020-07-17 13:43 | P.GSCN ---
History of Present Illness Consult date: 07/17/20 History of present illness: CHIEF COMPLAINT: Left axilla abscess HISTORY OF PRESENT ILLNESS: This is a 65-year-old female with a known past medical history of morbid obesity, cardiomyopathy, congestive heart failure, type 2 diabetes mellitus, hyperlipidemia, obstructive sleep apnea and prior history of axillary abscess on the right side that caused patient to become septic. Patient presented to the emergency room with complaints of left axilla abscess. Patient reports having this for about one month. She really has had increase in pain and swelling in the area. She is having pus drainage lower in the axilla area. There is a abscess on the upper right arm is measuring about 5 cm in size with necrotic tissue. There is foul odor drainage from open are in t he axilla. Cultures have been obtained. Patient is on multiple antibiotics. There is also consult for infectious disease. Surgical service was consulted for possible debridement of the abscess and necrotic area. Patient reports not feeling well she denies any fevers or chills. Denies any nausea vomiting or bowel movement changes. She is also being treated for hyponatremia. Computed tomography scan of the chest revealed soft tissue air on the left chest wall extending into the left axilla consistent with wound. Complete extent of there is not evaluated. It extends into the upper arm. No evidence of discrete drainable abscess fluid collection. No acute abnormality within the chest. PAST MEDICAL HISTORY: See list. PAST SURGICAL HISTORY: See list. MEDICATIONS: See list. ALLERGIES: See list. SOCIAL HISTORY: No illicit drug use. REVIEW OF SYSTEMS: CONSTITUTIONAL: Denies fever or chills. HEENT: Denies blurred vision, vision changes, or eye pain. Denies hemoptysis CARDIOVASCULAR: Denies chest pain or pressure. RESPIRATORY: No shortness of breath. GASTROINTESTINAL: See HPI for pertinent findings HEMATOLOGIC: Denies bleeding disorders. GENITOURINARY: Denies any blood in urine or increased urinary frequency. SKIN: Denies pruitis. Denies rash. PHYSICAL EXAM: VITAL SIGNS: Reviewed GENERAL: Well-developed in no acute distress. HEENT: No sclera icterus. Extraocular movements grossly intact. Moist buccal mucosa. Head is atraumatic, normocephalic. No nasal drainage. ABDOMEN: Soft. Obese. Nondistended. nontender with palpation NEUROLOGIC: Alert and oriented. Cranial nerves II through XII grossly intact. extremities: Left upper arm abscess 5 cm in length area is red and warm with palpation. There is an area of necrotic tissue. Patient's whole axilla area is red and warm and tender with palpation. There is yellow puslike foul-smelling drainage from open area in axilla. LABORATORY DATA: WBC 26.6 hemoglobin 13.8 sodium 131 creatinine 1.08 lactic 1.9 IMAGING: Computed tomography scan of the chest revealed soft tissue air on the left chest wall extending into the left axilla consistent with wound. Complete extent of there is not evaluated. It extends into the upper arm. No evidence of discrete drainable abscess fluid collection. No acute abnormality within the chest. ASSESSMENT: 1. Left upper arm abscess with necrotic tissue status post bedside incision and debridement of necrotic tissue. Cultures were obtained. Minimal drainage during debridement. 2. Diabetes mellitus type 2 PLAN: -Continue IV antibiotics -Follow up on culture results -Agree with ID consult Thank you for this consultation Physician Phone Representative note has been reviewed by physician. Signing provider agrees with the documented findings, assessment, and plan of care. 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 with wound vac 2018 Past Anesthesia/Blood Transfusion Reactions: No Reported Reaction Past Psychological History: Anxiety, Panic Disorder Smoking Status: Current every day smoker Past Alcohol Use History: Occasional Past Drug Use History: None Reported - Past Family History Brother(s) Family Medical History: Cancer Mother Family Medical History: Coronary Artery Disease (CAD), Diabetes Mellitus Medications and Allergies Home Medications Medication Instructions Recorded Confirmed Type Beclomethasone Dipropionate [Qvar 2 puff INHALATION RT-BID 08/19/14 07/16/20 History 40 mcg/puff] Furosemide [Lasix] 40 mg PO BID 08/19/14 07/16/20 History Spironolactone [Aldactone] 25 mg PO DAILY 08/19/14 07/16/20 History carvediloL [Coreg] 6.25 mg PO BID 08/19/14 07/16/20 History Aspirin 81 mg PO DAILY 07/16/20 07/16/20 History Atorvastatin [Lipitor] 40 mg PO HS 07/16/20 07/16/20 History Cholecalciferol [Vitamin D3 (25 5,000 unit PO DAILY 07/16/20 07/16/20 History Mcg = 1000 Iu)] Insulin Glargine [Lantus] 50 unit SQ QAM 07/16/20 07/16/20 History lisinopriL [Zestril] 5 mg PO DAILY 07/16/20 07/16/20 History metFORMIN HCL 1,000 mg PO BID 07/16/20 07/16/20 History Allergies Allergy/AdvReac Type Severity Reaction Status Date / Time strawberry Allergy Intermediate Rash/Hives Verified 07/16/20 15:24 codeine AdvReac Severe Chest Pain Verified 07/17/20 12:15 Surgical - Exam Vital Signs Temp Pulse Resp BP Pulse Ox 97.6 F 90 18 95/51 98 07/16/20 10:33 07/16/20 10:33 07/16/20 10:33 07/16/20 10:33 07/16/20 10:33 Results - Labs 07/17/20 06:08 07/17/20 06:08 Abnormal Lab Results - Last 24 Hours (Table) 07/16/20 07/16/20 07/16/20 Range/Units 11:14 11:14 13:28 WBC 28.9 H (3.8-10.6) k/uL Neutrophils # (Manual) 26.80 H (1.3-7.7) k/uL Lymphocytes # (Manual) 0.29 L (1.0-4.8) k/uL Monocytes # (Manual) 1.73 H (0-1.0) k/uL Sodium 127 L (137-145) mmol/L Carbon Dioxide 19 L (22-30) mmol/L BUN 35 H (7-17) mg/dL Creatinine 1.15 H (0.52-1.04) mg/dL Glucose 180 H (74-99) mg/dL POC Glucose (mg/dL) 169 H (75-99) mg/dL Calcium (8.4-10.2) mg/dL Alkaline Phosphatase 131 H (38-126) U/L Total Protein (6.3-8.2) g/dL Albumin 3.0 L (3.5-5.0) g/dL 07/16/20 07/16/20 07/17/20 Range/Units 17:35 21:10 06:08 WBC 26.6 H (3.8-10.6) k/uL Neutrophils # (Manual) (1.3-7.7) k/uL Lymphocytes # (Manual) (1.0-4.8) k/uL Monocytes # (Manual) (0-1.0) k/uL Sodium (137-145) mmol/L Carbon Dioxide (22-30) mmol/L BUN (7-17) mg/dL Creatinine (0.52-1.04) mg/dL Glucose (74-99) mg/dL POC Glucose (mg/dL) 170 H 232 H (75-99) mg/dL Calcium (8.4-10.2) mg/dL Alkaline Phosphatase (38-126) U/L Total Protein (6.3-8.2) g/dL Albumin (3.5-5.0) g/dL 07/17/20 07/17/20 Range/Units 06:08 06:35 WBC (3.8-10.6) k/uL Neutrophils # (Manual) (1.3-7.7) k/uL Lymphocytes # (Manual) (1.0-4.8) k/uL Monocytes # (Manual) (0-1.0) k/uL Sodium 131 L (137-145) mmol/L Carbon Dioxide 19 L (22-30) mmol/L BUN 43 H (7-17) mg/dL Creatinine 1.08 H (0.52-1.04) mg/dL Glucose 154 H (74-99) mg/dL POC Glucose (mg/dL) 148 H (75-99) mg/dL Calcium 7.9 L (8.4-10.2) mg/dL Alkaline Phosphatase 128 H (38-126) U/L Total Protein 5.9 L (6.3-8.2) g/dL Albumin 2.7 L (3.5-5.0) g/dL Microbiology - Last 24 Hours (Table) 07/16/20 14:35 Gram Stain - Preliminary Axilla - Left Wound Culture - Preliminary Diabetes panel 07/16/20 07/17/20 Range/Units 11:14 06:08 Sodium 127 L 131 L (137-145) mmol/L Potassium 4.4 3.9 (3.5-5.1) mmol/L Chloride 99 102 (98-107) mmol/L Carbon Dioxide 19 L 19 L (22-30) mmol/L BUN 35 H 43 H (7-17) mg/dL Creatinine 1.15 H 1.08 H (0.52-1.04) mg/dL Glucose 180 H 154 H (74-99) mg/dL Calcium 8.4 7.9 L (8.4-10.2) mg/dL AST 22 18 (14-36) U/L ALT 19 17 (4-34) U/L Alkaline Phosphatase 131 H 128 H (38-126) U/L Total Protein 6.4 5.9 L (6.3-8.2) g/dL Albumin 3.0 L 2.7 L (3.5-5.0) g/dL Calcium panel 07/16/20 07/17/20 Range/Units 11:14 06:08 Calcium 8.4 7.9 L (8.4-10.2) mg/dL Albumin 3.0 L 2.7 L (3.5-5.0) g/dL Pituitary panel 07/16/20 07/17/20 Range/Units 11:14 06:08 Sodium 127 L 131 L (137-145) mmol/L Potassium 4.4 3.9 (3.5-5.1) mmol/L Chloride 99 102 (98-107) mmol/L Carbon Dioxide 19 L 19 L (22-30) mmol/L BUN 35 H 43 H (7-17) mg/dL Creatinine 1.15 H 1.08 H (0.52-1.04) mg/dL Glucose 180 H 154 H (74-99) mg/dL Calcium 8.4 7.9 L (8.4-10.2) mg/dL Adrenal panel 07/16/20 07/17/20 Range/Units 11:14 06:08 Sodium 127 L 131 L (137-145) mmol/L Potassium 4.4 3.9 (3.5-5.1) mmol/L Chloride 99 102 (98-107) mmol/L Carbon Dioxide 19 L 19 L (22-30) mmol/L BUN 35 H 43 H (7-17) mg/dL Creatinine 1.15 H 1.08 H (0.52-1.04) mg/dL Glucose 180 H 154 H (74-99) mg/dL Calcium 8.4 7.9 L (8.4-10.2) mg/dL Total Bilirubin 1.1 0.6 (0.2-1.3) mg/dL AST 22 18 (14-36) U/L ALT 19 17 (4-34) U/L Alkaline Phosphatase 131 H 128 H (38-126) U/L Total Protein 6.4 5.9 L (6.3-8.2) g/dL Albumin 3.0 L 2.7 L (3.5-5.0) g/dL
[2020-07-17 17:21] LABS: Glucose,Whole Blood 97 mg/dL (75-99)
[2020-07-17 20:20] LABS: Glucose,Whole Blood 117 mg/dL (75-99)
[2020-07-17] MEDS: ATORVASTATIN 40 MG TAB PO SCH (22:22)
[2020-07-18] MEDS: SODIUM CHLORIDE 0.9% 1,000 ML IV SCH ×3 (00:11→21:40)
[2020-07-18] MEDS: INSULIN ASPART (NovoLOG) 100 UNIT/ML VIAL SQ SCH ×5 (00:12→21:27)
[2020-07-18] MEDS: HEPARIN SODIUM,PORCINE 5,000 UNIT/ML 1 ML VIAL SQ SCH ×4 (00:23→23:19)
[2020-07-18] MEDS: AMPICILLIN-SULBACTAM 3 GM in SODIUM CHLORIDE 0.9% 100 ML IVPB SCH ×4 (00:23→18:16)
[2020-07-18] MEDS: traMADol 50 MG TAB PO SCH ×5 (00:36→23:19)
[2020-07-18] MEDS: VANCOMYCIN 2,000 MG in SODIUM CHLORIDE 0.9% 500 ML 500 ML IVPB SCH (06:14)
[2020-07-18] MEDS: carvediloL 6.25 MG TAB PO SCH ×2 (06:27→17:38)
[2020-07-18 06:43] LABS: Glucose,Whole Blood 70 mg/dL (75-99)
[2020-07-18] MEDS: INSULIN DETEMIR (LEVEMIR) 100 UNIT/ML SYR SQ SCH (06:46)
[2020-07-18 07:03] LABS: HCT 42.2 % (34.0-46.0); HGB 14.1 gm/dL (11.4-16.0); MCH 31.9 pg (25.0-35.0); MCHC 33.4 g/dL (31.0-37.0); MCV 95.6 fL (80.0-100.0); Mean Platelet Volume 7.7; Platelet Count 272 k/uL (150-450); RBC 4.42 m/uL (3.80-5.40); RDW 13.4 % (11.5-15.5)
[2020-07-18 07:16] LABS: Albumin 2.5 g/dL (3.5-5.0); Calcium 7.8 mg/dL (8.4-10.2); Potassium 3.7 mmol/L (3.5-5.1); Total Bilirubin 0.6 mg/dL (0.2-1.3); Total Protein 5.7 g/dL (6.3-8.2)
[2020-07-18] MEDS: FLUTICASONE 110 MCG INHALER INHALATION SCH ×2 (08:31→21:07)
[2020-07-18] MEDS: ASPIRIN 81 MG PO SCH (09:16)
[2020-07-18] MEDS: CHOLECALCIFEROL 1,000 UNIT TAB PO SCH (09:17)
[2020-07-18] MEDS: lisinopriL 5 MG TAB PO SCH (09:17)
[2020-07-18] MEDS: NICOTINE 14MG/24HR PATCH TRANSDERM SCH (09:18)
[2020-07-18] MEDS: SPIRONOLACTONE 25 MG TAB PO SCH (09:18)
[2020-07-18] MEDS: FUROSEMIDE 40 MG TAB PO SCH (09:19)
[2020-07-18 11:52] LABS: Glucose,Whole Blood 104 mg/dL (75-99)
--- NOTE | 2020-07-18 12:49 | P.PN ---
Subjective Progress Note Date: 07/18/20 CHIEF COMPLAINT: Left upper arm abscess with necrotic tissue HISTORY OF PRESENT ILLNESS: Patient is status post bedside debridement of necrotic tissue by Dr. forrest on 07/17/2020. Patient still reporting pain in the left arm. There is still significant erythema. Patient still reporting drainage from the left axilla. She reports her pain is controlled. Denies any nausea or vomiting. She is currently on antibiotics. Afebrile. Wound culture grew group D enterococcus. WBC 24 A1c pending PHYSICAL EXAM: VITAL SIGNS: Reviewed. GENERAL: Well-developed in no acute distress. HEENT: No sclera icterus. Extraocular movements grossly intact. Moist buccal mucosa. Head is atraumatic, normocephalic. ABDOMEN: Soft. Nondistended. Nontender. Obese NEUROLOGIC: Alert and oriented. Cranial nerves II through XII grossly intact. Extremities: Left upper arm is swollen. The dressing is clean dry and intact. ASSESSMENT: 1. Left upper arm abscess with necrotic tissue status post bedside incision and debridement of necrotic tissue. Cultures were obtained. Minimal drainage during debridement. 2. Diabetes mellitus type 2 PLAN: -Continue supportive care -Continue IV antibiotics Physician Retail Clerk note has been reviewed by physician. Signing provider agrees with the documented findings, assessment, and plan of care. Objective - Vital Signs Vital signs: Vital Signs Temp 97.7 F 07/18/20 08:50 Pulse 78 07/18/20 08:50 Resp 20 07/18/20 08:50 BP 104/54 07/18/20 08:50 Pulse Ox 95 07/18/20 08:50 Intake & Output 07/17/20 07/18/20 07/18/20 18:59 06:59 18:59 Intake Total 360 Balance 360 Intake: Oral 360 Other: Voiding Method Toilet Toilet # Voids 1 2 1 - Labs CBC & Chem 7: 07/18/20 06:38 07/18/20 06:38 Labs: Abnormal Lab Results - Last 24 Hours (Table) 07/17/20 07/18/20 07/18/20 Range/Units 20:18 06:38 06:38 WBC 24.0 H (3.8-10.6) k/uL Sodium 132 L (137-145) mmol/L Carbon Dioxide 19 L (22-30) mmol/L BUN 46 H (7-17) mg/dL Glucose 71 L (74-99) mg/dL POC Glucose (mg/dL) 117 H (75-99) mg/dL Calcium 7.8 L (8.4-10.2) mg/dL Alkaline Phosphatase 131 H (38-126) U/L Total Protein 5.7 L (6.3-8.2) g/dL Albumin 2.5 L (3.5-5.0) g/dL 07/18/20 07/18/20 Range/Units 06:41 11:50 WBC (3.8-10.6) k/uL Sodium (137-145) mmol/L Carbon Dioxide (22-30) mmol/L BUN (7-17) mg/dL Glucose (74-99) mg/dL POC Glucose (mg/dL) 70 L 104 H (75-99) mg/dL Calcium (8.4-10.2) mg/dL Alkaline Phosphatase (38-126) U/L Total Protein (6.3-8.2) g/dL Albumin (3.5-5.0) g/dL Microbiology - Last 24 Hours (Table) 07/16/20 14:35 Gram Stain - Preliminary Axilla - Left Wound Culture - Preliminary Group D Enterococcus 07/16/20 11:14 Blood Culture - Preliminary Blood No Growth after 24 hours
--- NOTE | 2020-07-18 14:40 | P.PN ---
Subjective Progress Note Date: 07/18/20 HISTORY OF PRESENT ILLNESS 65-year-old morbidly obese female with past medical history of cardiomyopathy, congestive heart failure, type 2 diabetes, hyperlipidemia, possible obstructive sleep apnea who had previous history of abscess who presented to the emergency department at [facility] today 07/16/2020 with complaint of for drainage abscess and discomfort in the left axilla. Remember having similar episode a few years ago of the right side ended up with sepsis and infection spread to the lower abdominal area ended up having to have a wound care and wound VAC with IV antibiotic for long time. Patient apparently started having drainage with a black spot in the axilla with smell coming from that area with copious amount of drainage for the last 48 hours. Developed to have fever and chills and overall not feeling well well she was seen and evaluated her white blood cell weren't 28th 1900 left shift surprisingly had severe hyponatremia with sodium of 127 lactic acid was only 1.9 blood sugar was 169 mildly stage III chronic kidney disease was found as well. She was giving 1 g of Vanco along with ceftriaxone culture was done patient was admitted to the hospital will be seen general surgery along with infectious disease. Patient does not remember having any injury no shaving no hair follicular problem recently in her opinion this is spontaneous happen by itself. Also the smell and the look of this area looks like more necrotic tissue as necrotizing fasciitis. We'll continue antibiotics and add anaerobic coverage also will involve infectious disease and CAT scan of the axilla will be done patient most likely will need to go for I and D. 07/17: Patient is seen today on the pediatric medical floor for follow-up. CAT scan revealed soft tissue air on the left chest wall extending into the left axilla consistent with wound. Complete extent of the air is not evaluated. Air extends into the upper arm. No evidence of discrete renal abscess fluid collection. Consults in place of general surgery and infectious disease. Patient encouraged to remain nothing by mouth until evaluated by general surgery. She has been afebrile, heart rate 89, blood pressure 98/47, pulse ox 90% on room air. Evelin BC 26.6, hemoglobin 13.8, platelet count 251. Sodium 131, potassium 3.9, chloride 102, CO2 19, BUN 43 and creatinine 1.08. Blood sugars running between 148 and 232. Alkaline phosphatase 128. Patient is currently on ceftriaxone, Flagyl and vancomycin. 07/18: Patient underwent bedside debridement yesterday with Dr. Lovelace on. She continues to have soreness and tenderness to the axilla region. She has been seen by Dr. Martínez from infectious disease with recommendations for Unasyn and vancomycin. Local wound care will be in the form of Santyl. Patient has been afebrile, heart rate 78, blood pressure 104/54, pulse ox 95% on room air. Repeat blood work reveals Evelin BC 24. Sodium 132, CO2 19.. Blood sugars running between 70 and 146. Patient refused insulin this morning. Alkaline phosphatase 131. Wound culture is group D enterococcus. REVIEW OF SYSTEMS CONSTITUTIONAL: morbidly obese no acute respiratory distress. Denies fevers. EYES: No icterus sclerae, no conjunctivitis. EARS, NOSE, MOUTH, THROAT, and FACE: No sore throat, lymphadenopathy, carotid bruits or deformity. RESPIRATORY: decreased breaths on bilaterally with mild shortness of breath no cough or wheezes. CARDIOVASCULAR: No CP, Palpitation, PND, Orthopnea, or angina. GASTROINTESTINAL: No Abd pain, Nausea or vomiting, no Diarrhea or constipation, No GI Bleed, no distention or masses. GENITOURINARY: Negative for Hematuria or UTI, no kidney stones. INTEGUMENT/BREAST: Negative for any muscular injury with mild osteoarthritis.significant discomfort in the left axilla with significant drainage.. HEMATOLOGIC/LYMPHATIC: Negative for bleed or purpura. MUSCULOSKELTAL: Negative for Myalgia or arthralgia.more involvement of the left axilla with drainage NEURLOGICAL: No LOC, Sz or syncope, blurred vision dizziness or abnormality.. BEHAVIORAL/PSYCH: Negative. ENDOCRINE: Negative. PHYSICAL EXAMINATION General Appearance: Alert, cooperative, no distress, morbidly obese does not look in any distress and looked older than her age Neck HEENT: Supple, no lymphadenopathy, no thyroid enlargement, no carotid bruits. Lungs: decreased breath some bilaterally with fine rhonchi has mild crackles in the right base has mild expiratory wheezes. Chest Wall: decreasel expansion with deep inspiration no tenderness and no deformity was found on exam, no costochondral pain or discomfort.. Erythema on the left lateral chest wall and left lateral breast area with large area of firm tissue. Necrotic tissue has been excised. Significant foul odor. Heart: Regular rate and rhythm, S1, S2 normal, no murmur, rub or gallop. Back: Symmetric, no curvature, ROM normal, no CVA tenderness. Abdomen: Soft, non-tender, bowel sounds active all four quadrants, no masses, no organomegaly. Extremities: left axilla has involvement of 10 time 10 cm large abscess With a blackhead very large the drainage is very smelly and area looks necrotic at the time with slight lymph node enlarge in the axilla as well. Large dressing in place. Pulses: 2+ and symmetric. Skin: Skin color, texture, tugor normal, no rashes or lesions. Neurologic: Alert oriented x3 cranial nerves II through XII intact, no motor deficit, no abnormal balance or gait. ASSESSMENT AND PLAN 1 sepsis secondary to abscess and cellulitis. Continue current antibiotic infectious disease and general surgery will be involved. Continue IV antibio tics in the form of Unasyn and vancomycin. Consult with infectious disease appreciated. Patient is status post bedside I&D. 2 abscess and necrotizing fasciitis in the left axilla. CAT scan as above. Wound culture in progress. Continue IV antibiotics 3 severe leukocytosis: Secondary to abscess and sepsis continue antibiotic repeat CBC in 24 hours. 4 severe hyponatremia: Most likely SIADH from the severity of the infection will watch sodium over the next 24 hours specially after treating infection. 5 severe congestive heart failure, probable diastolic: Patient has been seen Dr. Caputo cardiology regular basis and has been on regular routine with Coreg along with furosemide, spironolactone and lisinopril continue medication. 6 type 2 diabetes. A1c pending. Hold metformin for CAT scan. Continue Levemir 50 units in the morning along with sliding scales NovoLog. 7 hyperlipidemia: Continue patient on atorvastatin 40 mg daily.. 8 chronic kidney disease: Stage III, repeat BUN/creatinine next 24 hours continue hydration for now. 9 GI prophylaxis: Patient will be on Pepcid 20 mg daily. 10 smoking cessation: Nicotine patch 14 mg be started for now. 11 DVT prophylaxis: Patient will be on heparin 5000 units subcutaneous every 8 hours. CODE STATUS: Full code. DISCHARGE PLAN To be determined. Most likely return home. Impression and plan of care have been directed as dictated by the signing physician. Kailee Teran nurse practitioner acting as scribe for signing physician. Objective - Vital Signs Vital signs: Vital Signs Temp 97 F L 07/18/20 01:57 Pulse 80 07/18/20 06:26 Resp 18 07/18/20 01:57 BP 95/52 07/18/20 06:26 Pulse Ox 93 L 07/18/20 01:57 Intake & Output 07/17/20 07/18/20 07/18/20 18:59 06:59 18:59 Intake Total 360 Balance 360 Intake: Oral 360 Other: Voiding Method Toilet # Voids 1 2 - Labs CBC & Chem 7: 07/18/20 06:38 07/18/20 06:38 Labs: Abnormal Lab Results - Last 24 Hours (Table) 07/17/20 07/17/20 07/18/20 Range/Units 12:01 20:18 06:38 WBC 24.0 H (3.8-10.6) k/uL Sodium (137-145) mmol/L Carbon Dioxide (22-30) mmol/L BUN (7-17) mg/dL Glucose (74-99) mg/dL POC Glucose (mg/dL) 146 H 117 H (75-99) mg/dL Calcium (8.4-10.2) mg/dL Alkaline Phosphatase (38-126) U/L Total Protein (6.3-8.2) g/dL Albumin (3.5-5.0) g/dL 07/18/20 07/18/20 Range/Units 06:38 06:41 WBC (3.8-10.6) k/uL Sodium 132 L (137-145) mmol/L Carbon Dioxide 19 L (22-30) mmol/L BUN 46 H (7-17) mg/dL Glucose 71 L (74-99) mg/dL POC Glucose (mg/dL) 70 L (75-99) mg/dL Calcium 7.8 L (8.4-10.2) mg/dL Alkaline Phosphatase 131 H (38-126) U/L Total Protein 5.7 L (6.3-8.2) g/dL Albumin 2.5 L (3.5-5.0) g/dL Microbiology - Last 24 Hours (Table) 07/16/20 14:35 Gram Stain - Preliminary Axilla - Left Wound Culture - Preliminary Group D Enterococcus 07/16/20 11:14 Blood Culture - Preliminary Blood No Growth after 24 hours
--- NOTE | 2020-07-18 14:44 | P.PN ---
Subjective Progress Note Date: 07/18/20 HISTORY OF PRESENT ILLNESS This is a 65-year-old female with extensive past medical history of c ardiomyopathy, heart failure, diabetes mellitus type 2, hyperlipidemia, obstructive sleep apnea, morbid obesity. Patient presented with complaints of a draining abscess in the left axilla that apparently has been going on for a month and pain 10/10 with fever. Patient had increasing amount of drainage from the area over the past 24 hours. Patient is treated for left axillary abscess status post bedside debridement with Dr. [place] berger. Patient continues to complain of soreness and tenderness to the area. She also has increased edema. She is complaining of pain into the muscle area. Erythema to the left lateral chest wall left breast. Patient also has increased edema to the left elbow and forearm. Patient is maintained on Unasyn and vancomycin. Wound culture is enterococcus. Patient has been afebrile, heart rate 78, blood pressure 104/54, pulse ox 95% on room air. Repeat blood work reveals WBC 24. Sodium 132, CO2 19.. Blood sugars running between 70 and 146. Patient refused insulin this morning. Alkaline phosphatase 131. Wound culture is group D enterococcus. PHYSICAL EXAMINATION Gen: This is a 65-year-old morbidly obese female. She is resting on the edge of the bed and appears to be comfortable. No respiratory distress noted. VS: Afebrile, heart rate 60, blood pressure 95/58, pulse ox 93% on room air. HEENT: Head is atraumatic, normocephalic. Pupils equal, round. Sclerae is anicteric. NECK: Supple. No JVD. No lymphadenopathy. No thyromegaly. LUNGS: Clear to auscultation. No wheezes or rhonchi. No intercostal retractions. HEART: Regular rate and rhythm. No murmur. ABDOMEN: Soft. Bowel sounds are present. No masses. No tenderness. EXTREMITIES: No pedal edema. No calf tenderness. The left axilla area has large area of erythema, edema. Erythema extending into the left lateral chest wall and left lateral breast. Significant foul order. NEUROLOGICAL: Patient is awake, alert and oriented x3. Cranial nerves 2 through 12 are grossly intact. ASSESSMENT Sepsis secondary to left axilla abscess Diabetes mellitus type 2 Chronic kidney disease Tobacco use and dependence PLAN Continue vancomycin-pharmacy dosing and Unasyn 3 g IV piggyback every 6 hours Status post bedside I&D Await final culture report Continue supportive care Further recommendations based on patient's clinical course The above dictated assessment and findings were discussed with Dr. Martínez. The impression and plan of care have been directed as dictated. Kailee Teran nurse practitioner acting as scribe for Dr. Martínez. Objective - Vital Signs Vital signs: Vital Signs Temp 97.7 F 07/18/20 08:50 Pulse 78 07/18/20 08:50 Resp 20 07/18/20 08:50 BP 104/54 07/18/20 08:50 Pulse Ox 95 07/18/20 08:50 Intake & Output 07/17/20 07/18/20 07/18/20 18:59 06:59 18:59 Intake Total 360 Balance 360 Intake: Oral 360 Other: Voiding Method Toilet Toilet # Voids 1 2 1 - Labs CBC & Chem 7: 07/18/20 06:38 07/18/20 06:38 Labs: Abnormal Lab Results - Last 24 Hours (Table) 07/17/20 07/18/20 07/18/20 Range/Units 20:18 06:38 06:38 WBC 24.0 H (3.8-10.6) k/uL Sodium 132 L (137-145) mmol/L Carbon Dioxide 19 L (22-30) mmol/L BUN 46 H (7-17) mg/dL Glucose 71 L (74-99) mg/dL POC Glucose (mg/dL) 117 H (75-99) mg/dL Calcium 7.8 L (8.4-10.2) mg/dL Alkaline Phosphatase 131 H (38-126) U/L Total Protein 5.7 L (6.3-8.2) g/dL Albumin 2.5 L (3.5-5.0) g/dL 07/18/20 07/18/20 Range/Units 06:41 11:50 WBC (3.8-10.6) k/uL Sodium (137-145) mmol/L Carbon Dioxide (22-30) mmol/L BUN (7-17) mg/dL Glucose (74-99) mg/dL POC Glucose (mg/dL) 70 L 104 H (75-99) mg/dL Calcium (8.4-10.2) mg/dL Alkaline Phosphatase (38-126) U/L Total Protein (6.3-8.2) g/dL Albumin (3.5-5.0) g/dL Microbiology - Last 24 Hours (Table) 07/16/20 14:35 Gram Stain - Preliminary Axilla - Left Wound Culture - Preliminary Group D Enterococcus 07/16/20 11:14 Blood Culture - Preliminary Blood No Growth after 24 hours
[2020-07-18 15:08] VITALS: BMI 45.1
[2020-07-18 17:09] LABS: Hemoglobin A1C 6.5 % (4.0-6.0)
[2020-07-18 17:40] LABS: Glucose,Whole Blood 195 mg/dL (75-99)
[2020-07-18 20:17] LABS: Glucose,Whole Blood 174 mg/dL (75-99)
[2020-07-18] MEDS: COLLAGENASE 250 UNIT/GM OINTMENT 30 GM TUBE TOPICAL SCH (21:24)
[2020-07-18] MEDS: ATORVASTATIN 40 MG TAB PO SCH (21:25)
[2020-07-18] MEDS ORDERED: VANCOMYCIN 2,000 MG in SODIUM CHLORIDE 0.9% 500 ML 500 ML IVPB SCH (22:00)
[2020-07-19] MEDS: AMPICILLIN-SULBACTAM 3 GM in SODIUM CHLORIDE 0.9% 100 ML IVPB SCH ×5 (00:37→23:39)
[2020-07-19] MEDS: SODIUM CHLORIDE 0.9% 1,000 ML IV SCH (02:50)
[2020-07-19] MEDS: traMADol 50 MG TAB PO SCH ×4 (06:34→23:40)
[2020-07-19 06:44] LABS: Glucose,Whole Blood 140 mg/dL (75-99)
[2020-07-19] MEDS: INSULIN DETEMIR (LEVEMIR) 100 UNIT/ML SYR SQ SCH (06:48)
[2020-07-19] MEDS: INSULIN ASPART (NovoLOG) 100 UNIT/ML VIAL SQ SCH ×4 (06:48→21:55)
[2020-07-19] MEDS: carvediloL 6.25 MG TAB PO SCH ×3 (06:53→18:51)
[2020-07-19 07:37] LABS: HCT 38.5 % (34.0-46.0); HGB 12.7 gm/dL (11.4-16.0); MCH 31.4 pg (25.0-35.0); MCHC 33.1 g/dL (31.0-37.0); Mean Platelet Volume 7.7; Platelet Count 279 k/uL (150-450); RBC 4.06 m/uL (3.80-5.40); RDW 13.4 % (11.5-15.5); WBC 24.1 k/uL (3.8-10.6)
[2020-07-19 07:51] LABS: ALT 21 U/L (4-34); AST 27 U/L (14-36); African American GFR (CKD) >90 (>60 ml/min/1.73 sqM); Albumin 2.1 g/dL (3.5-5.0); Alkaline Phosphatase 150 U/L (38-126); Anion Gap 12 mmol/L; Blood Urea Nitrogen 27 mg/dL (7-17); Calcium 7.1 mg/dL (8.4-10.2); Carbon Dioxide 21 mmol/L (22-30); Chloride 108 mmol/L (98-107); Glucose 141 mg/dL (74-99); Non-African American GFR(CKD) >90 (>60 ml/min/1.73 sqM); Potassium 3.3 mmol/L (3.5-5.1); Sodium 141 mmol/L (137-145); Total Bilirubin 0.6 mg/dL (0.2-1.3); Total Protein 5.3 g/dL (6.3-8.2)
[2020-07-19] MEDS: FLUTICASONE 110 MCG INHALER INHALATION SCH ×2 (08:11→20:07)
[2020-07-19] MEDS ORDERED: POTASSIUM CHLORIDE ER 20 MEQ TAB.ER PO STA (08:39)
[2020-07-19] MEDS: CHOLECALCIFEROL 1,000 UNIT TAB PO SCH (10:08)
[2020-07-19] MEDS: HEPARIN SODIUM,PORCINE 5,000 UNIT/ML 1 ML VIAL SQ SCH ×3 (10:08→23:41)
[2020-07-19] MEDS: ASPIRIN 81 MG PO SCH (10:08)
[2020-07-19] MEDS: lisinopriL 5 MG TAB PO SCH (10:09)
[2020-07-19] MEDS: SPIRONOLACTONE 25 MG TAB PO SCH (10:09)
[2020-07-19] MEDS: FUROSEMIDE 40 MG TAB PO SCH (10:09)
[2020-07-19] MEDS: COLLAGENASE 250 UNIT/GM OINTMENT 30 GM TUBE TOPICAL SCH (10:40)
[2020-07-19] MEDS: KETOROLAC 15 MG/ML 1 ML VIAL IVP SCH ×3 (10:58→23:41)
[2020-07-19] MEDS: NICOTINE 14MG/24HR PATCH TRANSDERM SCH (11:00)
--- NOTE | 2020-07-19 12:09 | P.PN ---
Progress Note - Text Progress Note Date: 07/19/20 Patient is doing slightly better. Her arm swelling and pain has decreased. On exam the wound remained stable. There is some necrotic fat the wound. Patient will receive local wound care and continue IV antibiotics.
--- NOTE | 2020-07-19 12:36 | P.PN ---
Subjective Progress Note Date: 07/19/20 HISTORY OF PRESENT ILLNESS 65-year-old morbidly obese female with past medical history of cardiomyopathy, congestive heart failure, type 2 diabetes, hyperlipidemia, possible obstructive sleep apnea who had previous history of abscess who presented to the emergency department at [facility] today 07/16/2020 with complaint of for drainage abscess and discomfort in the left axilla. Remember having similar episode a few years ago of the right side ended up with sepsis and infection spread to the lower abdominal area ended up having to have a wound care and wound VAC with IV antibiotic for long time. Patient apparently started having drainage with a black spot in the axilla with smell coming from that area with copious amount of drainage for the last 48 hours. Developed to have fever and chills and overall not feeling well well she was seen and evaluated her white blood cell weren't 28th 1900 left shift surprisingly had severe hyponatremia with sodium of 127 lactic acid was only 1.9 blood sugar was 169 mildly stage III chronic kidney disease was found as well. She was giving 1 g of Vanco along with ceftriaxone culture was done patient was admitted to the hospital will be seen general surgery along with infectious disease. Patient does not remember having any injury no shaving no hair follicular problem recently in her opinion this is spontaneous happen by itself. Also the smell and the look of this area looks like more necrotic tissue as necrotizing fasciitis. We'll continue antibiotics and add anaerobic coverage also will involve infectious disease and CAT scan of the axilla will be done patient most likely will need to go for I and D. 07/17: Patient is seen today on the pediatric medical floor for follow-up. CAT scan revealed soft tissue air on the left chest wall extending into the left axilla consistent with wound. Complete extent of the air is not evaluated. Air extends into the upper arm. No evidence of discrete renal abscess fluid collection. Consults in place of general surgery and infectious disease. Patient encouraged to remain nothing by mouth until evaluated by general surgery. She has been afebrile, heart rate 89, blood pressure 98/47, pulse ox 90% on room air. Evelin BC 26.6, hemoglobin 13.8, platelet count 251. Sodium 131, potassium 3.9, chloride 102, CO2 19, BUN 43 and creatinine 1.08. Blood sugars running between 148 and 232. Alkaline phosphatase 128. Patient is currently on ceftriaxone, Flagyl and vancomycin. 07/18: Patient underwent bedside debridement yesterday with Dr. Lovelace on. She continues to have soreness and tenderness to the axilla region. She has been seen by Dr. Martínez from infectious disease with recommendations for Unasyn and vancomycin. Local wound care will be in the form of Santyl. Patient has been afebrile, heart rate 78, blood pressure 104/54, pulse ox 95% on room air. Repeat blood work reveals Evelin BC 24. Sodium 132, CO2 19.. Blood sugars running between 70 and 146. Patient refused insulin this morning. Alkaline phosphatase 131. Wound culture is group D enterococcus. 07/19: The patient continues to have significant pain and discomfort along with swelling redness to the left axilla, left arm and chest wall, breast. WBC 24.1, hemoglobin 12.7. Platelet count 279. Sodium 141, potassium 3.3, chloride 108, CO2 21, BUN 27, creatinine 0.7. Blood sugars running between 140s and 195. Alkaline phosphatase 150. Patient has been afebrile, heart rate 79, blood pressure 105/50, pulse ox 93% on room air. Culture finalized with Enterococcus faecalis. Patient continued on Unasyn. We have discontinue vancomycin. REVIEW OF SYSTEMS CONSTITUTIONAL: morbidly obese no acute respiratory distress. Denies fevers. Denies chills. EYES: No icterus sclerae, no conjunctivitis. EARS, NOSE, MOUTH, THROAT, and FACE: No sore throat, lymphadenopathy, carotid bruits or deformity. RESPIRATORY: decreased breaths on bilaterally with mild shortness of breath no cough or wheezes. CARDIOVASCULAR: No CP, Palpitation, PND, Orthopnea, or angina. GASTROINTESTINAL: No Abd pain, Nausea or vomiting, no Diarrhea or constipation, No GI Bleed, no distention or masses. GENITOURINARY: Negative for Hematuria or UTI, no kidney stones. INTEGUMENT/BREAST: Negative for any muscular injury with mild osteoarthritis.significant discomfort in the left axilla with significant drainage.. HEMATOLOGIC/LYMPHATIC: Negative for bleed or purpura. MUSCULOSKELTAL: Negative for Myalgia or arthralgia.more involvement of the left axilla with drainage NEURLOGICAL: No LOC, Sz or syncope, blurred vision dizziness or abnormality.. BEHAVIORAL/PSYCH: Negative. ENDOCRINE: Negative. PHYSICAL EXAMINATION General Appearance: Alert, cooperative, no distress, morbidly obese does not look in any distress and looked older than her age Neck HEENT: Supple, no lymphadenopathy, no thyroid enlargement, no carotid bruits. Lungs: decreased breath some bilaterally with fine rhonchi has mild crackles in the right base has mild expiratory wheezes. Chest Wall: decreasel expansion with deep inspiration no tenderness and no deformity was found on exam, no costochondral pain or discomfort.. Erythema on the left lateral chest wall and left lateral breast area with large area of firm tissue. Necrotic tissue has been excised. Significant foul odor. Heart: Regular rate and rhythm, S1, S2 normal, no murmur, rub or gallop. Back: Symmetric, no curvature, ROM normal, no CVA tenderness. Abdomen: Soft, non-tender, bowel sounds active all four quadrants, no masses, no organomegaly. Extremities: left axilla has large area of necrotic tissue, surrounding erythema and edema. Extensive edema down the left arm and into the hand. Patient noted to not be elevating hand.. Pulses: 2+ and symmetric. Skin: Skin color, texture, tugor normal, no rashes or lesions. Neurologic: Alert oriented x3 cranial nerves II through XII intact, no motor deficit, no abnormal balance or gait. ASSESSMENT AND PLAN 1 sepsis secondary to abscess and cellulitis. Continue current antibiotic infectious disease and general surgery will be involved. Continue IV an tibiotics in the form of Unasyn. Vancomycin discontinued. Patient may require another I&D. Consult with infectious disease appreciated. Patient is status post bedside I&D. 2 abscess and necrotizing fasciitis in the left axilla. CAT scan as above. Wound culture in progress. Continue IV antibiotics 3 severe leukocytosis: Secondary to abscess and sepsis continue antibiotic repeat CBC in 24 hours. 4 severe hyponatremia: Most likely SIADH from the severity of the infection will watch sodium over the next 24 hours specially after treating infection. 5 severe congestive heart failure, probable diastolic: Patient has been seen Dr. Caputo cardiology regular basis and has been on regular routine with Coreg along with furosemide, spironolactone and lisinopril continue medication. 6 type 2 diabetes. A1c pending. Hold metformin for CAT scan. Continue Levemir 50 units in the morning along with sliding scales NovoLog. 7 hyperlipidemia: Continue patient on atorvastatin 40 mg daily.. 8 chronic kidney disease: Stage III, repeat BUN/creatinine next 24 hours continue hydration for now. 9 GI prophylaxis: Patient will be on Pepcid 20 mg daily. 10 smoking cessation: Nicotine patch 14 mg be started for now. 11 DVT prophylaxis: Patient will be on heparin 5000 units subcutaneous every 8 hours. CODE STATUS: Full code. DISCHARGE PLAN To be determined. Most likely return home. Impression and plan of care have been directed as dictated by the signing physic ian. Kailee Teran nurse practitioner acting as scribe for signing physician. Objective - Vital Signs Vital signs: Vital Signs Temp 97.0 F L 07/19/20 02:30 Pulse 79 07/19/20 06:38 Resp 18 07/19/20 06:38 BP 105/50 07/19/20 06:38 Pulse Ox 93 L 07/19/20 06:38 Intake & Output 07/18/20 07/19/20 07/19/20 18:59 06:59 18:59 Intake Total 400 Balance 400 Weight 130.635 kg Intake: Oral 400 Other: Voiding Method Toilet # Voids 1 1 - Labs CBC & Chem 7: 07/19/20 07:21 07/19/20 07:21 Labs: Abnormal Lab Results - Last 24 Hours (Table) 07/18/20 07/18/20 07/18/20 Range/Units 06:38 11:50 17:33 WBC (3.8-10.6) k/uL Potassium (3.5-5.1) mmol/L Chloride (98-107) mmol/L Carbon Dioxide (22-30) mmol/L BUN (7-17) mg/dL Glucose (74-99) mg/dL POC Glucose (mg/dL) 104 H 195 H (75-99) mg/dL Hemoglobin A1c 6.5 H (4.0-6.0) % Calcium (8.4-10.2) mg/dL Alkaline Phosphatase (38-126) U/L Total Protein (6.3-8.2) g/dL Albumin (3.5-5.0) g/dL 07/18/20 07/19/20 07/19/20 Range/Units 20:13 06:42 07:21 WBC 24.1 H (3.8-10.6) k/uL Potassium (3.5-5.1) mmol/L Chloride (98-107) mmol/L Carbon Dioxide (22-30) mmol/L BUN (7-17) mg/dL Glucose (74-99) mg/dL POC Glucose (mg/dL) 174 H 140 H (75-99) mg/dL Hemoglobin A1c (4.0-6.0) % Calcium (8.4-10.2) mg/dL Alkaline Phosphatase (38-126) U/L Total Protein (6.3-8.2) g/dL Albumin (3.5-5.0) g/dL 07/19/20 Range/Units 07:21 WBC (3.8-10.6) k/uL Potassium 3.3 L (3.5-5.1) mmol/L Chloride 108 H (98-107) mmol/L Carbon Dioxide 21 L (22-30) mmol/L BUN 27 H (7-17) mg/dL Glucose 141 H (74-99) mg/dL POC Glucose (mg/dL) (75-99) mg/dL Hemoglobin A1c (4.0-6.0) % Calcium 7.1 L (8.4-10.2) mg/dL Alkaline Phosphatase 150 H (38-126) U/L Total Protein 5.3 L (6.3-8.2) g/dL Albumin 2.1 L (3.5-5.0) g/dL Microbiology - Last 24 Hours (Table) 07/18/20 14:00 Gram Stain - Preliminary Arm - Left Wound Culture - Preliminary 07/16/20 14:35 Gram Stain - Final Axilla - Left Wound Culture - Final Enterococcus faecalis 07/16/20 11:14 Blood Culture - Preliminary Blood No Growth after 48 hours
[2020-07-19 12:56] LABS: Glucose,Whole Blood 120 mg/dL (75-99)
[2020-07-19] MEDS ORDERED: VANCOMYCIN TROUGH DUE 1 EACH MISC MISCELLANE ONE (13:00)
[2020-07-19 17:37] LABS: Glucose,Whole Blood 159 mg/dL (75-99)
--- NOTE | 2020-07-19 18:21 | US ---
EXAMINATION TYPE: US venous doppler duplex UE LT DATE OF EXAM: 07/19/2020 COMPARISON: NONE CLINICAL HISTORY: edema, D-dimer 1.45, necrotic lesion upper arm/axi. Edema exam limitation body habi tus. SIDE PERFORMED: Left Left Arm: Negative for DVT IMPRESSION: No evidence of deep vein thrombosis in the left arm.
--- NOTE | 2020-07-19 18:52 | PN ---
PROGRESS NOTE DATE OF SERVICE: 07/19/2020 REASON FOR FOLLOWUP: Left axillary wound infection and cellulitis. INTERVAL HISTORY: The patient is currently afebrile. The patient is breathing comfortably. Pain and discomfort to the left axilla area has decreased. No chest pain or cough. No abdominal pain or diarrhea. PHYSICAL EXAMINATION: Blood pressure is 96/50 with pulse 67, temperature 97. She is 97% on room air. General description is a middle-aged female up in the bed in no distress. RESPIRATORY SYSTEM: Unlabored breathing. Clear to auscultation anteriorly. HEART: S1, S2. Regular rate and rhythm. ABDOMEN: Soft. No tenderness. Left axilla is currently dressed. No obvious drainage on the dressing. LABS: Hemoglobin is 12.7, white count 24.1. Creatinine 0.70. Cultures with Enterococcus faecalis, sensitive pathogen. Blood culture has been negative. DIAGNOSTIC IMPRESSION AND PLAN: Patient with left axillary abscess, status post surgical debridement. Local care to continue with Santyl. She is covered with Unasyn. Vancomycin was discontinued. White count is still elevated and needs to be monitored closely. Continue supportive care. MMODL / IJN: [id number] /
[2020-07-19] MEDS: MELATONIN 5 MG TABLET PO SCH (21:50)
[2020-07-19] MEDS: ATORVASTATIN 40 MG TAB PO SCH (21:51)
[2020-07-19 21:55] LABS: Glucose,Whole Blood 132 mg/dL (75-99)
[2020-07-20] MEDS: KETOROLAC 15 MG/ML 1 ML VIAL IVP SCH ×3 (05:58→17:43)
[2020-07-20] MEDS: traMADol 50 MG TAB PO SCH ×3 (05:58→17:45)
[2020-07-20] MEDS: AMPICILLIN-SULBACTAM 3 GM in SODIUM CHLORIDE 0.9% 100 ML IVPB SCH ×3 (05:59→17:46)
[2020-07-20 06:16] LABS: HCT 39.2 % (34.0-46.0); MCH 31.9 pg (25.0-35.0); MCHC 33.1 g/dL (31.0-37.0); MCV 96.4 fL (80.0-100.0); Mean Platelet Volume 7.2; Platelet Count 282 k/uL (150-450); RBC 4.07 m/uL (3.80-5.40); RDW 13.6 % (11.5-15.5); WBC 27.5 k/uL (3.8-10.6)
[2020-07-20 06:25] LABS: Albumin 2.2 g/dL (3.5-5.0); Calcium 7.8 mg/dL (8.4-10.2); Potassium 3.7 mmol/L (3.5-5.1); Total Bilirubin 0.5 mg/dL (0.2-1.3); Total Protein 5.2 g/dL (6.3-8.2)
[2020-07-20 07:44] LABS: Glucose,Whole Blood 102 mg/dL (75-99)
[2020-07-20] MEDS: INSULIN DETEMIR (LEVEMIR) 100 UNIT/ML SYR SQ SCH (07:47)
[2020-07-20] MEDS: SODIUM CHLORIDE 0.9% 1,000 ML IV SCH ×3 (07:47→20:40)
[2020-07-20] MEDS: carvediloL 6.25 MG TAB PO SCH ×2 (07:47→18:30)
[2020-07-20] MEDS: FUROSEMIDE 40 MG TAB PO SCH (07:47)
[2020-07-20] MEDS: FLUTICASONE 110 MCG INHALER INHALATION SCH ×2 (08:06→20:38)
[2020-07-20] MEDS: INSULIN ASPART (NovoLOG) 100 UNIT/ML VIAL SQ SCH ×4 (09:34→20:39)
[2020-07-20] MEDS: SPIRONOLACTONE 25 MG TAB PO SCH (09:49)
[2020-07-20] MEDS: ASPIRIN 81 MG PO SCH (09:49)
[2020-07-20] MEDS: lisinopriL 5 MG TAB PO SCH (09:49)
[2020-07-20] MEDS: CHOLECALCIFEROL 1,000 UNIT TAB PO SCH (09:49)
[2020-07-20] MEDS: COLLAGENASE 250 UNIT/GM OINTMENT 30 GM TUBE TOPICAL SCH (09:49)
[2020-07-20] MEDS: NICOTINE 14MG/24HR PATCH TRANSDERM SCH (09:49)
[2020-07-20] MEDS: HEPARIN SODIUM,PORCINE 5,000 UNIT/ML 1 ML VIAL SQ SCH ×2 (09:49→16:51)
[2020-07-20] MEDS: ACETAMINOPHEN TAB 325 MG TAB PO PRN (10:43)
--- NOTE | 2020-07-20 11:21 | P.PN ---
Subjective Progress Note Date: 07/20/20 HISTORY OF PRESENT ILLNESS 65-year-old morbidly obese female with past medical history of cardiomyopathy, congestive heart failure, type 2 diabetes, hyperlipidemia, possible obstructive sleep apnea who had previous history of abscess who presented to the emergency department at [facility] today 07/16/2020 with complaint of for drainage abscess and discomfort in the left axilla. Remember having similar episode a few years ago of the right side ended up with sepsis and infection spread to the lower abdominal area ended up having to have a wound care and wound VAC with IV antibiotic for long time. Patient apparently started having drainage with a black spot in the axilla with smell coming from that area with copious amount of drainage for the last 48 hours. Developed to have fever and chills and overall not feeling well well she was seen and evaluated her white blood cell weren't 28th 1900 left shift surprisingly had severe hyponatremia with sodium of 127 lactic acid was only 1.9 blood sugar was 169 mildly stage III chronic kidney disease was found as well. She was giving 1 g of Vanco along with ceftriaxone culture was done patient was admitted to the hospital will be seen general surgery along with infectious disease. Patient does not remember having any injury no shaving no hair follicular problem recently in her opinion this is spontaneous happen by itself. Also the smell and the look of this area looks like more necrotic tissue as necrotizing fasciitis. We'll continue antibiotics and add anaerobic coverage also will involve infectious disease and CAT scan of the axilla will be done patient most likely will need to go for I and D. 07/17: Patient is seen today on the pediatric medical floor for follow-up. CAT scan revealed soft tissue air on the left chest wall extending into the left axilla consistent with wound. Complete extent of the air is not evaluated. Air extends into the upper arm. No evidence of discrete renal abscess fluid collection. Consults in place of general surgery and infectious disease. Patient encouraged to remain nothing by mouth until evaluated by general surgery. She has been afebrile, heart rate 89, blood pressure 98/47, pulse ox 90% on room air. Evelin BC 26.6, hemoglobin 13.8, platelet count 251. Sodium 131, potassium 3.9, chloride 102, CO2 19, BUN 43 and creatinine 1.08. Blood sugars running between 148 and 232. Alkaline phosphatase 128. Patient is currently on ceftriaxone, Flagyl and vancomycin. 07/18: Patient underwent bedside debridement yesterday with Dr. Lovelace on. She continues to have soreness and tenderness to the axilla region. She has been seen by Dr. Martínez from infectious disease with recommendations for Unasyn and vancomycin. Local wound care will be in the form of Santyl. Patient has been afebrile, heart rate 78, blood pressure 104/54, pulse ox 95% on room air. Repeat blood work reveals Evelin BC 24. Sodium 132, CO2 19.. Blood sugars running between 70 and 146. Patient refused insulin this morning. Alkaline phosphatase 131. Wound culture is group D enterococcus. 07/19: The patient continues to have significant pain and discomfort along with swelling redness to the left axilla, left arm and chest wall, breast. WBC 24.1, hemoglobin 12.7. Platelet count 279. Sodium 141, potassium 3.3, chloride 108, CO2 21, BUN 27, creatinine 0.7. Blood sugars running between 140s and 195. Alkaline phosphatase 150. Patient has been afebrile, heart rate 79, blood pressure 105/50, pulse ox 93% on room air. Culture finalized with Enterococcus faecalis. Patient continued on Unasyn. We have discontinue vancomycin. 07/20: Patient has decreased swelling to the left arm and hand and pain is improved today, less redness. Patient has been afebrile, heart rate 71, blood pressure 116/66, pulse ox 95% on room air. WBC 27.5, hemoglobin 13. Sodium 136, potassium 3.7, chloride 110, CO2 21, BUN 30 creatinine 0.83. Blood sugars run between 88 and 132. Alkaline phosphatase 181. We'll add an consults for PT and OT as patient may require subacute rehab. Anticipate discharge on Tuesday or Tuesday of this week. REVIEW OF SYSTEMS CONSTITUTIONAL: morbidly obese no acute respiratory distress. Denies fevers. Denies chills. EYES: No icterus sclerae, no conjunctivitis. EARS, NOSE, MOUTH, THROAT, and FACE: No sore throat, lymphadenopathy, carotid bruits or deformity. RESPIRATORY: decreased breaths on bilaterally with mild shortness of breath no cough or wheezes. CARDIOVASCULAR: No CP, Palpitation, PND, Orthopnea, or angina. GASTROINTESTINAL: No Abd pain, Nausea or vomiting, no Diarrhea or constipation, No GI Bleed, no distention or masses. GENITOURINARY: Negative for Hematuria or UTI, no kidney stones. INTEGUMENT/BREAST: Negative for any muscular injury with mild osteoarthritis.significant discomfort in the left axilla with significant drainage. Decreased swelling. HEMATOLOGIC/LYMPHATIC: Negative for bleed or purpura. MUSCULOSKELTAL: Negative for Myalgia or arthralgia.more involvement of the left axilla with drainage NEURLOGICAL: No LOC, Sz or syncope, blurred vision dizziness or abnormality.. BEHAVIORAL/PSYCH: Negative. ENDOCRINE: Negative. PHYSICAL EXAMINATION General Appearance: Alert, cooperative, no distress, morbidly obese mouth no acute distress Neck HEENT: Supple, no lymphadenopathy, no thyroid enlargement, no carotid bruits. Lungs: decreased breath some bilaterally clear to auscultation. Chest Wall: decreasel expansion with deep inspiration no tenderness and no deformity was found on exam, no costochondral pain or discomfort.. Erythema on the left lateral chest wall and left lateral breast area with large area of firm tissue on the improving. Heart: Regular rate and rhythm, S1, S2 normal, no murmur, rub or gallop. Back: Symmetric, no curvature, ROM normal, no CVA tenderness. Abdomen: Soft, non-tender, bowel sounds active all four quadrants, no masses, no organomegaly. Extremities: left axilla has large area of necrotic tissue, surrounding erythema and edema. Extensive edema down the left arm and into the hand. Patient noted to not be elevating hand.. Pulses: 2+ and symmetric. Skin: Skin color, texture, tugor normal, no rashes or lesions. Neurologic: Alert oriented x3 cranial nerves II through XII intact, no motor deficit, no abnormal balance or gait. ASSESSMENT AND PLAN 1 sepsis secondary to abscess and cellulitis. Continue current antibiotic infectious disease and general surgery will be involved. Continue IV antibiotics in the form of Unasyn. Consult with infectious disease appreciated. Patient is status post bedside I&D. 2 abscess and necrotizing fasciitis in the left axilla. CAT scan as above. Wound culture in progress. Continue IV antibiotics 3 severe leukocytosis: Secondary to abscess and sepsis continue antibiotic repeat CBC in 24 hours. 4 severe hyponatremia: Most likely SIADH from the severity of the infection will watch sodium over the next 24 hours specially after treating infection. 5 severe congestive heart failure, probable diastolic: Patient has been seen Dr. Caputo cardiology regular basis and has been on regular routine with Coreg along with furosemide, spironolactone and lisinopril continue medication. 6 type 2 diabetes. A1c pending. Hold metformin for CAT scan. Continue Levemir 50 units in the morning along with sliding scales NovoLog. 7 hyperlipidemia: Continue patient on atorvastatin 40 mg daily.. 8 chronic kidney disease: Stage III, repeat BUN/creatinine next 24 hours continu e hydration for now. 9 GI prophylaxis: Patient will be on Pepcid 20 mg daily. 10 smoking cessation: Nicotine patch 14 mg be started for now. 11 DVT prophylaxis: Patient will be on heparin 5000 units subcutaneous every 8 hours. CODE STATUS: Full code. DISCHARGE PLAN Anticipate discharge in the next 24-48 hours. Most likely return home. Impression and plan of care have been directed as dictated by the signing physician. Kailee Teran nurse practitioner acting as scribe for signing physician. Objective - Vital Signs Vital signs: Vital Signs Temp 97.5 F L 07/20/20 07:45 Pulse 71 07/20/20 07:45 Resp 18 07/20/20 07:45 BP 116/66 07/20/20 07:45 Pulse Ox 95 07/20/20 07:45 Intake & Output 07/19/20 07/20/20 07/20/20 18:59 06:59 18:59 Intake Total 240 660 Balance 240 660 Intake: Oral 240 660 Other: # Voids 1 # Bowel Movements 1 - Labs CBC & Chem 7: 07/20/20 05:43 07/20/20 05:43 Labs: Abnormal Lab Results - Last 24 Hours (Table) 07/19/20 07/19/20 07/19/20 Range/Units 10: 12:54 17:34 WBC (3.8-10.6) k/uL D-Dimer 1.45 H (<0.60) mg/L FEU Sodium (137-145) mmol/L Chloride (98-107) mmol/L Carbon Dioxide (22-30) mmol/L BUN (7-17) mg/dL POC Glucose (mg/dL) 120 H 159 H (75-99) mg/dL Calcium (8.4-10.2) mg/dL Alkaline Phosphatase (38-126) U/L Total Protein (6.3-8.2) g/dL Albumin (3.5-5.0) g/dL 07/19/20 07/20/20 07/20/20 Range/Units 21:54 05:43 05:43 WBC 27.5 H (3.8-10.6) k/uL D-Dimer (<0.60) mg/L FEU Sodium 136 L (137-145) mmol/L Chloride 110 H (98-107) mmol/L Carbon Dioxide 21 L (22-30) mmol/L BUN 30 H (7-17) mg/dL POC Glucose (mg/dL) 132 H (75-99) mg/dL Calcium 7.8 L (8.4-10.2) mg/dL Alkaline Phosphatase 181 H (38-126) U/L Total Protein 5.2 L (6.3-8.2) g/dL Albumin 2.2 L (3.5-5.0) g/dL 07/20/20 Range/Units 07:42 WBC (3.8-10.6) k/uL D-Dimer (<0.60) mg/L FEU Sodium (137-145) mmol/L Chloride (98-107) mmol/L Carbon Dioxide (22-30) mmol/L BUN (7-17) mg/dL POC Glucose (mg/dL) 102 H (75-99) mg/dL Calcium (8.4-10.2) mg/dL Alkaline Phosphatase (38-126) U/L Total Protein (6.3-8.2) g/dL Albumin (3.5-5.0) g/dL Microbiology - Last 24 Hours (Table) 07/16/20 11:14 Blood Culture - Preliminary Blood No Growth after 72 hours 07/18/20 14:00 Gram Stain - Preliminary Arm - Left Wound Culture - Preliminary Group D Enterococcus
--- NOTE | 2020-07-20 11:24 | P.PN ---
Progress Note - Text Progress Note Date: 07/20/20 Patient states she feels with same. Her cellulitis has improved slightly. On exam her wound still has some minimal drainage on her left medial arm. The arm is firm with some mild tenderness. There is some erythema the chest wall extending into the breast area. His anesthetic can't of the patient may be transferred today to a tertiary care center.
--- NOTE | 2020-07-20 11:27 | P.OP ---
Date of Procedure: 07/17/20 Preoperative Diagnosis: Left arm cellulitis/abscess Postoperative Diagnosis: Left arm cellulitis/ abscess Procedure(s) Performed: Incision and drainage of abscess Anesthesia: local Surgeon: Miguel A Harrington Pathology: other (Wound culture) Condition: stable Disposition: floor Description of Procedure: The patient's placed on her bed in the supine position. Her left arm was prepped and draped usual fashion. The patient an area of necrotic skin measuring presents to Center today and. The area was incised 1% local Xylocaine. Using an 11 blade the area was incised in a small abscess was drained. The abscess was cultured. Patient had sterile dressing applied. She tolerated well.
[2020-07-20] MEDS ORDERED: LOPERAMIDE 2 MG CAP PO STA (11:36)
[2020-07-20] MEDS ORDERED: LOPERAMIDE 2 MG CAP PO PRN (11:36)
[2020-07-20 13:04] LABS: Glucose,Whole Blood 109 mg/dL (75-99)
[2020-07-20 17:51] LABS: Glucose,Whole Blood 122 mg/dL (75-99)
[2020-07-20 20:26] LABS: Glucose,Whole Blood 153 mg/dL (75-99)
[2020-07-20] MEDS: MELATONIN 5 MG TABLET PO SCH (20:39)
[2020-07-20] MEDS: ATORVASTATIN 40 MG TAB PO SCH (20:39)
[2020-07-20] MEDS ORDERED: RX INFO: IV CONTRAST WAS GIVEN 1 EACH MISC MISCELLANE PRN (21:17)
--- NOTE | 2020-07-20 22:19 | PN ---
PROGRESS NOTE DATE OF SERVICE: 07/20/2020 REASON FOR FOLLOWUP: Left upper extremity wound and cellulitis. INTERVAL HISTORY: The patient is currently afebrile. The patient is feeling slightly better, breathing comfortably. Denies having any chest pain or cough. No significant no nausea, no vomiting, no abdominal pain or diarrhea. PHYSICAL EXAMINATION: Blood pressure 123/58 with a pulse of 55, temperature 98.2. She is 95% on room air. General description is a middle-aged female up in the bed in no distress. RESPIRATORY SYSTEM: Unlabored breathing. Clear to auscultation anteriorly. HEART: S1, S2. Regular rate and rhythm. ABDOMEN: Soft. No tenderness. Left axillary wound with slough tissue, some surrounding swelling and redness. No drainage. LABS: Hemoglobin is 13, white count of 27.5. BUN of 30, creatinine 0.83. DIAGNOSTIC IMPRESSION AND PLAN: Patient with a left axillary wound with secondary cellulitis. Culture with Enterococcus faecalis. The patient's white count remains elevated. We will obtain a CT of the left upper extremity to make sure there is no evidence of any deep abscess that may need to be drained. Continue with Unasyn and monitor clinical course closely. MMODL / IJN: [id number] /
[2020-07-21] MEDS: HEPARIN SODIUM,PORCINE 5,000 UNIT/ML 1 ML VIAL SQ SCH ×3 (00:05→18:22)
[2020-07-21] MEDS: traMADol 50 MG TAB PO SCH ×4 (00:05→18:07)
[2020-07-21] MEDS: KETOROLAC 15 MG/ML 1 ML VIAL IVP SCH ×4 (00:05→18:05)
[2020-07-21] MEDS: AMPICILLIN-SULBACTAM 3 GM in SODIUM CHLORIDE 0.9% 100 ML IVPB SCH ×4 (00:05→18:07)
[2020-07-21 06:43] LABS: Glucose,Whole Blood 101 mg/dL (75-99)
[2020-07-21] MEDS: INSULIN DETEMIR (LEVEMIR) 100 UNIT/ML SYR SQ SCH (06:48)
[2020-07-21] MEDS: INSULIN ASPART (NovoLOG) 100 UNIT/ML VIAL SQ SCH ×4 (06:54→21:04)
[2020-07-21] MEDS: carvediloL 6.25 MG TAB PO SCH ×2 (06:54→18:07)
[2020-07-21 06:55] LABS: HCT 39.7 % (34.0-46.0); HGB 12.7 gm/dL (11.4-16.0); MCH 30.9 pg (25.0-35.0); MCV 96.8 fL (80.0-100.0); Mean Platelet Volume 7.4; Platelet Count 291 k/uL (150-450); RDW 14.2 % (11.5-15.5); WBC 33.6 k/uL (3.8-10.6)
[2020-07-21 07:06] LABS: ALT 38 U/L (4-34); AST 36 U/L (14-36); African American GFR (CKD) >90 (>60 ml/min/1.73 sqM); Albumin 2.1 g/dL (3.5-5.0); Alkaline Phosphatase 240 U/L (38-126); Anion Gap 7 mmol/L; Blood Urea Nitrogen 23 mg/dL (7-17); Calcium 7.7 mg/dL (8.4-10.2); Carbon Dioxide 19 mmol/L (22-30); Chloride 110 mmol/L (98-107); Glucose 90 mg/dL (74-99); Non-African American GFR(CKD) 84 (>60 ml/min/1.73 sqM); Potassium 3.8 mmol/L (3.5-5.1); Sodium 136 mmol/L (137-145); Total Bilirubin 0.6 mg/dL (0.2-1.3); Total Protein 5.2 g/dL (6.3-8.2)
[2020-07-21] MEDS: FLUTICASONE 110 MCG INHALER INHALATION SCH ×2 (09:09→21:17)
[2020-07-21] MEDS: ASPIRIN 81 MG PO SCH (09:24)
[2020-07-21] MEDS: CHOLECALCIFEROL 1,000 UNIT TAB PO SCH (09:24)
--- NOTE | 2020-07-21 10:39 | CT ---
EXAMINATION TYPE: CT upper extremity LT w con DATE OF EXAM: 07/21/2020 COMPARISON: Ultrasound left upper extremity venous [address] 5 days ago. HISTORY: Abscess under left arm pit area, focal pain and swelling. CT DLP: 1220 mGycm Automated exposure control for dose reduction was used. CONTRAST: Performed with IV Contrast, patient injected with 100 mL of Isovue 300. FINDINGS: Exam is suboptimal due to patient's large body habitus. Redemonstration of subcutaneous gas deep to the pectoralis major and superficial to the pectoralis mi nor muscle in the left thorax anteriorly. There is additional subcutaneous emphysema extending along the left upper extremity within the deeper subcutaneous tissue. There is slightly larger 1.3 x 1.1 cm left axillary lymph node axial image 42 on current study. There is focus of fat stranding and subcut aneous air in the left axilla axial image 32 on current study extending towards the thorax. Degree of subcutaneous emphysema in the proximal left upper extremity is diminished or improved from prior CT. No bony destruction. No well-formed thick walled drainable fluid collection or abscess. Visualized p ortion of lungs are clear. Large heterogeneous right-sided thyroid nodule is redemonstrated. IMPRESSION: As above. Persistent gas-containing soft tissue infection extending and visualized portio n of the left upper extremity through the axilla into the anterior thorax deeper tissues, necrotizing fasciitis cannot be excluded. No focal fluid collection or drainable abscess noted.
[2020-07-21] MEDS: NICOTINE 14MG/24HR PATCH TRANSDERM SCH (11:39)
[2020-07-21] MEDS: COLLAGENASE 250 UNIT/GM OINTMENT 30 GM TUBE TOPICAL SCH (11:53)
[2020-07-21] MEDS: SPIRONOLACTONE 25 MG TAB PO SCH (11:53)
[2020-07-21] MEDS: FUROSEMIDE 40 MG TAB PO SCH (11:53)
[2020-07-21] MEDS: lisinopriL 5 MG TAB PO SCH (11:53)
[2020-07-21 12:46] LABS: Glucose,Whole Blood 86 mg/dL (75-99)
--- NOTE | 2020-07-21 14:04 | P.PN ---
Subjective Progress Note Date: 07/21/20 CHIEF COMPLAINT: Left upper arm abscess with necrotic tissue HISTORY OF PRESENT ILLNESS: Patient is status post bedside debridement of necrotic tissue by Dr. Harrington on 07/17/2020. Patient has had a slight decrease in swelling in the left arm and is a little bit more mobile in the left arm. Still complaining of pain. WBC is 33.6. Venous Doppler was negative for DVT. She is currently on antibiotics. Afebrile. Wound culture grew enterococcus. Computed tomography scan the left arm shows persisting gas containing soft tissue infection extending portion of the left upper extremity through the axilla into the anterior thorax deeper tissues, necrotizing fasciitis cannot be excluded. No focal fluid collection or drainable abscess noted. PHYSICAL EXAM: VITAL SIGNS: Reviewed. GENERAL: Well-developed in no acute distress. HEENT: No sclera icterus. Extraocular movements grossly intact. Moist buccal mucosa. Head is atraumatic, normocephalic. ABDOMEN: Soft. Nondistended. Nontender. Obese NEUROLOGIC: Alert and oriented. Cranial nerves II through XII grossly intact. Extremities: Left upper arm is swollen. Area that was debrided has now an increase in blackened tissue. There is a slight decrease in swelling and erythema of the left arm. There is some minimal yellowish drainage from the left axilla. There is erythema and firmness noted that extends into the left chest wall and breast area. ASSESSMENT: 1. Left upper arm abscess and cellulitis with necrotic tissue status post bedside incision and debridement of necrotic tissue. Cultures were obtained. Minimal drainage during debridement. 2. Diabetes mellitus type 2 PLAN: -Consult orthopedics regarding abnormal computed tomography scan of the left upper extremity -Continue supportive care -Continue IV antibiotics per ID Physician Desktop Support Specialist note has been reviewed by physician. Signing provider agrees with the documented findings, assessment, and plan of care. Objective - Vital Signs Vital signs: Vital Signs Temp 98.4 F 07/21/20 08:45 Pulse 79 07/21/20 08:45 Resp 18 07/21/20 08:45 BP 116/71 07/21/20 08:45 Pulse Ox 98 07/21/20 08:45 Intake & Output 07/20/20 07/21/20 07/21/20 18:59 06:59 18:59 Intake Total 480 Balance 480 Intake: Oral 480 Other: Voiding Method Toilet Toilet # Voids 1 3 # Bowel Movements 1 1 - Labs CBC & Chem 7: 07/21/20 06:12 07/21/20 06:17 Labs: Abnormal Lab Results - Last 24 Hours (Table) 07/20/20 07/20/20 07/21/20 Range/Units 17:50 20:24 06:12 WBC 33.6 H (3.8-10.6) k/uL Sodium (137-145) mmol/L Chloride (98-107) mmol/L Carbon Dioxide (22-30) mmol/L BUN (7-17) mg/dL POC Glucose (mg/dL) 122 H 153 H (75-99) mg/dL Calcium (8.4-10.2) mg/dL ALT (4-34) U/L Alkaline Phosphatase (38-126) U/L Total Protein (6.3-8.2) g/dL Albumin (3.5-5.0) g/dL 07/21/20 07/21/20 Range/Units 06:17 06:40 WBC (3.8-10.6) k/uL Sodium 136 L (137-145) mmol/L Chloride 110 H (98-107) mmol/L Carbon Dioxide 19 L (22-30) mmol/L BUN 23 H (7-17) mg/dL POC Glucose (mg/dL) 101 H (75-99) mg/dL Calcium 7.7 L (8.4-10.2) mg/dL ALT 38 H (4-34) U/L Alkaline Phosphatase 240 H (38-126) U/L Total Protein 5.2 L (6.3-8.2) g/dL Albumin 2.1 L (3.5-5.0) g/dL Microbiology - Last 24 Hours (Table) 07/16/20 11:14 Blood Culture - Preliminary Blood No Growth after 120 hours 07/18/20 14:00 Gram Stain - Final Arm - Left Wound Culture - Final Enterococcus faecalis
[2020-07-21 14:40] VITALS: RESP 16
--- NOTE | 2020-07-21 15:05 | P.CNOR ---
History of Present Illness - [facility] Consult date: 07/21/20 Consult reason: other (Left arm abscess) History of present illness: Patient is a 65-year-old female whose been in the hospital since 07/16/2020 with regards to a complex abscess/cellulitis involving the left upper extremity. Patient apparently noticed a small pimple in the area about 2 or 3 weeks ago and has progressively gotten worse. The size of the [employer] had increased in size, it began to drain and also there was significant erythema of the left upper extremity. Patient was admitted to [facility], she's been followed by internal medicine, general surgery and infectious disease. A bedside irrigation and debridement procedure was done by general surgery, cultures were taken at that time. Our orthopedic team was consulted today due to abnormal findings on computed tomography scan of the left upper extremity. Patient was examined today at bedside, she is resting comfortably. She states that the arm does feel slightly better today then it has over the last few days. Per nursing the amount of drainage has seemed to worsen today both from the abscess area and also weeping from the skin. There is a obvious foul order present on exam. Patient denies any pain involving her shoulder, elbow, hand or wrist. She denies any cervical, thoracic or lumbar pain at this time. She denies any paresthesias of the bilateral upper extremities. She does note discomfort in the left axillary region. There is significant amount soft tissue swelling involving the left upper extremity, the left axilla, left breast revision the left flank. Patient has a history of a previous infection involving the right side and also a abdominal infection and involved multiple surgeries, IV antibiotics and a wound VAC. 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 with wound vac 2017 Past Anesthesia/Blood Transfusion Reactions: No Reported Reaction Past Psychological History: Anxiety, Panic Disorder Smoking Status: Current every day smoker Past Alcohol Use History: Occasional Past Drug Use History: None Reported - Past Family History Brother(s) Family Medical History: Cancer Mother Family Medical History: Coronary Artery Disease (CAD), Diabetes Mellitus Medications and Allergies Home Medications Medication Instructions Recorded Confirmed Type Beclomethasone Dipropionate [Qvar 2 puff INHALATION RT-BID 08/19/14 07/16/20 History 40 mcg/puff] Furosemide [Lasix] 40 mg PO BID 08/19/14 07/16/20 History Spironolactone [Aldactone] 25 mg PO DAILY 08/19/14 07/16/20 History carvediloL [Coreg] 6.25 mg PO BID 08/19/14 07/16/20 History Aspirin 81 mg PO DAILY 07/16/20 07/16/20 History Atorvastatin [Lipitor] 40 mg PO HS 07/16/20 07/16/20 History Cholecalciferol [Vitamin D3 (25 5,000 unit PO DAILY 07/16/20 07/16/20 History Mcg = 1000 Iu)] Insulin Glargine [Lantus] 50 unit SQ QAM 07/16/20 07/16/20 History lisinopriL [Zestril] 5 mg PO DAILY 07/16/20 07/16/20 History metFORMIN HCL 1,000 mg PO BID 07/16/20 07/16/20 History Allergies Allergy/AdvReac Type Severity Reaction Status Date / Time strawberry Allergy Intermediate Rash/Hives Verified 07/21/20 13:17 codeine AdvReac Severe Chest Pain Verified 07/21/20 13:17 Physical Examination Left upper extremity: Obvious wound/abscess involving the upper left arm distal to the glenohumeral joint line and more lateral to the armpit. There is necrotic tissue surrounding the 4cm x 2 cm wound, with granulation tissue present with erythemat ous borders, there is active drainage visualized. There is severe erythema and soft tissue swelling noted in the axillary region with skin weeping. There is erythema and soft tissue swelling that trend down into the breast anteriorly and also along the flank and into the upper back. Erythema also trends down the arm posterior to the elbow and forearm. He shouldn't is able to abduct the shoulder along with 4 and elevate with minimal discomfort. Passive range of motion of the shoulder reproduces no pain. She is able to actively extend and flex the elbow with no pain. Wrist extension and wrist flexion along with hand intrinsics are intact. She is nontender with palpation surrounding the shoulder, elbow, hand/wrist. Her sensory exam to light touch throughout the extremity is intact, radial and ulnar pulses are 2+ Results - Labs Labs: Abnormal Lab Results - Last 24 Hours (Table) 07/20/20 07/20/20 07/21/20 Range/Units 17:50 20:24 06:12 WBC 33.6 H (3.8-10.6) k/uL Sodium (137-145) mmol/L Chloride (98-107) mmol/L Carbon Dioxide (22-30) mmol/L BUN (7-17) mg/dL POC Glucose (mg/dL) 122 H 153 H (75-99) mg/dL Calcium (8.4-10.2) mg/dL ALT (4-34) U/L Alkaline Phosphatase (38-126) U/L Total Protein (6.3-8.2) g/dL Albumin (3.5-5.0) g/dL 07/21/20 07/21/20 Range/Units 06:17 06:40 WBC (3.8-10.6) k/uL Sodium 136 L (137-145) mmol/L Chloride 110 H (98-107) mmol/L Carbon Dioxide 19 L (22-30) mmol/L BUN 23 H (7-17) mg/dL POC Glucose (mg/dL) 101 H (75-99) mg/dL Calcium 7.7 L (8.4-10.2) mg/dL ALT 38 H (4-34) U/L Alkaline Phosphatase 240 H (38-126) U/L Total Protein 5.2 L (6.3-8.2) g/dL Albumin 2.1 L (3.5-5.0) g/dL Microbiology - Last 24 Hours (Table) 07/16/20 11:14 Blood Culture - Preliminary Blood No Growth after 120 hours 07/18/20 14:00 Gram Stain - Final Arm - Left Wound Culture - Final Enterococcus faecalis H & H 07/16/20 07/17/20 07/18/20 Range/Units 11:14 06:08 06:38 Hgb 14.0 13.8 14.1 (11.4-16.0) gm/dL Hct 42.7 40.7 42.2 (34.0-46.0) % 0107/20/20 07/21/20 Range/Units 07:21 05:43 06:12 Hgb 12.7 13.0 12.7 (11.4-16.0) gm/dL Hct 38.5 39.2 39.7 (34.0-46.0) % Result Diagrams: 07/21/20 06:12 07/21/20 06:17 Assessment and Plan Assessment: Left upper extremity abscess Left upper extremity, left chest wall, left axilla, left flank cellulitis Possible narcotizing fascitis left upper extremity Multiple medical comorbidities Plan: Imaging studies: CT report was reviewed of the left upper extremity, report states subcutaneous gas noted near the pectoralis major and minor muscles and in the anterior thorax. Subcutaneous emphysema noted along the left upper extremity within the deep subcutaneous tissue. Please see report for further detail Plan: I was able to discuss the case, including with physical exam findings and imaging studies with my attending Dr. Bravo. I recommended immediate transfer to a tertiary care facility for extensive surgical workup Patient will likely require multiple surgical specialties along with continuation of infectious disease and internal medicine No general orthopedic surgical intervention recommended at this time We will be available for any further questions regarding this patient.
--- NOTE | 2020-07-21 16:15 | P.PN ---
Subjective Progress Note Date: 07/21/20 HISTORY OF PRESENT ILLNESS 65-year-old morbidly obese female with past medical history of cardiomyopathy, congestive heart failure, type 2 diabetes, hyperlipidemia, possible obstructive sleep apnea who had previous history of abscess who presented to the emergency department at [facility] today 07/16/2020 with complaint of for drainage abscess and discomfort in the left axilla. Remember having similar episode a few years ago of the right side ended up with sepsis and infection spread to the lower abdominal area ended up having to have a wound care and wound VAC with IV antibiotic for long time. Patient apparently started having drainage with a black spot in the axilla with smell coming from that area with copious amount of drainage for the last 48 hours. Developed to have fever and chills and overall not feeling well well she was seen and evaluated her white blood cell weren't 28th 1900 left shift surprisingly had severe hyponatremia with sodium of 127 lac tic acid was only 1.9 blood sugar was 169 mildly stage III chronic kidney disease was found as well. She was giving 1 g of Vanco along with ceftriaxone culture was done patient was admitted to the hospital will be seen general surgery along with infectious disease. Patient does not remember having any injury no shaving no hair follicular problem recently in her opinion this is spontaneous happen by itself. Also the smell and the look of this area looks like more necrotic tissue as necrotizing fasciitis. We'll continue antibiotics and add anaerobic coverage also will involve infectious disease and CAT scan of the axilla will be done patient most likely will need to go for I and D. 07/17: Patient is seen today on the pediatric medical floor for follow-up. CAT scan revealed soft tissue air on the left chest wall extending into the left axilla consistent with wound. Complete extent of the air is not evaluated. Air extends into the upper arm. No evidence of discrete renal abscess fluid collection. Consults in place of general surgery and infectious disease. Patient encouraged to remain nothing by mouth until evaluated by general surgery. She has been afebrile, heart rate 89, blood pressure 98/47, pulse ox 90% on room air. Evelin BC 26.6, hemoglobin 13.8, platelet count 251. Sodium 131, potassium 3.9, chloride 102, CO2 19, BUN 43 and creatinine 1.08. Blood sugars running between 148 and 232. Alkaline phosphatase 128. Patient is currently on ceftriaxone, Flagyl and vancomycin. 07/18: Patient underwent bedside debridement yesterday with Dr. Lovelace on. She continues to have soreness and tenderness to the axilla region. She has been seen by Dr. Martínez from infectious disease with recommendations for Unasyn and vancomycin. Local wound care will be in the form of Santyl. Patient has been afebrile, heart rate 78, blood pressure 104/54, pulse ox 95% on room air. Re peat blood work reveals Evelin BC 24. Sodium 132, CO2 19.. Blood sugars running between 70 and 146. Patient refused insulin this morning. Alkaline phosphatase 131. Wound culture is group D enterococcus. 07/19: The patient continues to have significant pain and discomfort along with swelling redness to the left axilla, left arm and chest wall, breast. WBC 24.1, hemoglobin 12.7. Platelet count 279. Sodium 141, potassium 3.3, chloride 108, CO2 21, BUN 27, creatinine 0.7. Blood sugars running between 140s and 195. Alkaline phosphatase 150. Patient has been afebrile, heart rate 79, blood pressure 105/50, pulse ox 93% on room air. Culture finalized with Enterococcus faecalis. Patient continued on Unasyn. We have discontinue vancomycin. 07/20: Patient has decreased swelling to the left arm and hand and pain is improved today, less redness. Patient has been afebrile, heart rate 71, blood pressure 116/66, pulse ox 95% on room air. WBC 27.5, hemoglobin 13. Sodium 136, potassium 3.7, chloride 110, CO2 21, BUN 30 creatinine 0.83. Blood sugars run between 88 and 132. Alkaline phosphatase 181. We'll add an consults for PT and OT as patient may require subacute rehab. Anticipate discharge on Tuesday or Tuesday of this week. 07/21: Patient has significant swelling to the left arm today. She continues to complain of soreness. Redness is increased as well. CAT scan has been ordered which reveals persistent gas containing soft tissue infection extending and visualized portion of the left upper extremity through the axilla into the anterior thorax deeper tissues, necrotizing fasciitis cannot be excluded. No focal fluid collection or drainable abscess. Consult added for orthopedics as recommended by general surgery and they did not wish to do surgical intervention recommend transferring. Patient will be transferred [facility] today once all arrangements are completed. Patient has been afebrile, heart rate 65, blood pressure 104/68, pulse ox 93-98% on room air. WBC increased to 33.6, hemoglobin 12.7. Sodium 136, potassium 3.8, chloride 110, CO2 19, BUN 23 and creatinine 0.76. Blood sugar 101. AST 36, ALT 38, alkaline phosphatase 240. REVIEW OF SYSTEMS CONSTITUTIONAL: morbidly obese no acute respiratory distress. Denies fevers. Denies chills. EYES: No icterus sclerae, no conjunctivitis. EARS, NOSE, MOUTH, THROAT, and FACE: No sore throat, lymphadenopathy, carotid bruits or deformity. RESPIRATORY: decreased breaths on bilaterally with mild shortness of breath no cough or wheezes. CARDIOVASCULAR: No CP, Palpitation, PND, Orthopnea, or angina. GASTROINTESTINAL: No Abd pain, Nausea or vomiting, no Diarrhea or constipation, No GI Bleed, no distention or masses. GENITOURINARY: Negative for Hematuria or UTI, no kidney stones. INTEGUMENT/BREAST: Negative for any muscular injury with mild osteoarthritis.significant pain and swelling in the left axilla. HEMATOLOGIC/LYMPHATIC: Negative for bleed or purpura. MUSCULOSKELTAL: Negative for Myalgia or arthralgia.more involvement of the left axilla with drainage NEURLOGICAL: No LOC, Sz or syncope, blurred vision dizziness or abnormality.. BEHAVIORAL/PSYCH: Negative. ENDOCRINE: Negative. PHYSICAL EXAMINATION General Appearance: Alert, cooperative, no distress, morbidly obese mouth no acute distress Neck HEENT: Supple, no lymphadenopathy, no thyroid enlargement, no carotid bruits. Lungs: decreased breath some bilaterally clear to auscultation. Chest Wall: decreasel expansion with deep inspiration no tenderness and no deformity was found on exam, no costochondral pain or discomfort.. Erythema on the left lateral chest wall and left lateral breast area with large area of firm tissue on the improving. Heart: Regular rate and rhythm, S1, S2 normal, no murmur, rub or gallop. Back: Symmetric, no curvature, ROM normal, no CVA tenderness. Abdomen: Soft, non-tender, bowel sounds active all four quadrants, no masses, no organomegaly. Extremities: left axilla has large area of necrotic tissue, surrounding erythema and edema worsened from yesterday. Extensive edema down the left arm and into the hand. Erythema on the left chest wall and lateral area of the left breast.. Pulses: 2+ and symmetric. Skin: Skin color, texture, tugor normal, no rashes or lesions. Neurologic: Alert oriented x3 cranial nerves II through XII intact, no motor deficit, no abnormal balance or gait. ASSESSMENT AND PLAN 1 sepsis secondary to abscess and cellulitis. Continue current antibiotic infectious disease and general surgery will be involved. Continue IV antibiotics in the form of Unasyn. Consult with infectious disease appreciated. Patient is status post bedside I&D. Repeat CAT scan as above. Patient to be transferred [facility]. 2 abscess and necrotizing fasciitis in the left axilla. CAT scan as above. Wound culture in progress. Continue IV antibiotics 3 severe leukocytosis: Secondary to abscess and sepsis continue antibiotic repeat CBC in 24 hours. 4 severe hyponatremia: Most likely SIADH from the severity of the infection will watch sodium over the next 24 hours specially after treating infection. 5 severe congestive heart failure, probable diastolic: Patient has been seen Dr. Caputo cardiology regular basis and has been on regular routine with Coreg along with furosemide, spironolactone and lisinopril continue medication. 6 type 2 diabetes. A1c pending. Hold metformin for CAT scan. Continue Levemir 50 units in the morning along with sliding scales NovoLog. 7 hyperlipidemia: Continue patient on atorvastatin 40 mg daily.. 8 chronic kidney disease: Stage III, repeat BUN/creatinine next 24 hours continue hydration for now. 9 GI prophylaxis: Patient will be on Pepcid 20 mg daily. 10 smoking cessation: Nicotine patch 14 mg be started for now. 11 DVT prophylaxis: Patient will be on heparin 5000 units subcutaneous every 8 hours. CODE STATUS: Full code. DISCHARGE PLAN Transferred [facility] Impression and plan of care have been directed as dictated by the signing physician. Kailee Teran nurse practitioner acting as scribe for signing physician. Objective - Vital Signs Vital signs: Vital Signs Temp 98.7 F 07/21/20 02:20 Pulse 65 07/21/20 02:20 Resp 16 07/21/20 02:20 BP 104/68 07/21/20 02:20 Pulse Ox 93 L 07/21/20 02:20 Intake & Output 07/20/20 07/21/20 07/21/20 18:59 06:59 18:59 Intake Total 480 Balance 480 Intake: Oral 480 Other: Voiding Method Toilet # Voids 1 3 # Bowel Movements 1 1 - Labs CBC & Chem 7: 07/21/20 06:12 07/21/20 06:17 Labs: Abnormal Lab Results - Last 24 Hours (Table) 07/20/20 07/20/20 07/20/20 Range/Units 13:02 17:50 20:24 WBC (3.8-10.6) k/uL Sodium (137-145) mmol/L Chloride (98-107) mmol/L Carbon Dioxide (22-30) mmol/L BUN (7-17) mg/dL POC Glucose (mg/dL) 109 H 122 H 153 H (75-99) mg/dL Calcium (8.4-10.2) mg/dL ALT (4-34) U/L Alkaline Phosphatase (38-126) U/L Total Protein (6.3-8.2) g/dL Albumin (3.5-5.0) g/dL 07/21/20 07/21/20 07/21/20 Range/Units 06:12 06:17 06:40 WBC 33.6 H (3.8-10.6) k/uL Sodium 136 L (137-145) mmol/L Chloride 110 H (98-107) mmol/L Carbon Dioxide 19 L (22-30) mmol/L BUN 23 H (7-17) mg/dL POC Glucose (mg/dL) 101 H (75-99) mg/dL Calcium 7.7 L (8.4-10.2) mg/dL ALT 38 H (4-34) U/L Alkaline Phosphatase 240 H (38-126) U/L Total Protein 5.2 L (6.3-8.2) g/dL Albumin 2.1 L (3.5-5.0) g/dL Microbiology - Last 24 Hours (Table) 07/16/20 11:14 Blood Culture - Preliminary Blood No Growth after 96 hours 07/18/20 14:00 Gram Stain - Final Arm - Left Wound Culture - Final Enterococcus faecalis
--- NOTE | 2020-07-21 16:16 | P.DS ---
Providers Date of admission: 07/16/20 13:30 Expected date of discharge: 07/21/20 Attending physician: Jorge Miller Consults: 07/16/20 13:41 Consult Physician Routine Consulting Provider: Miguel A Harrington Consult Reason/Comments: abscess, axilla Do you want consulting provider notified?: Yes 07/16/20 20:51 Consult Physician Routine Consulting Provider: Dago Martínez Consult Reason/Comments: necrotic faciitis/cellulitis left axilla Do you want consulting provider notified?: Already Contacted 07/21/20 14:26 Consult Physician Stat Consulting Provider: Eddie Bravo Consult Reason/Comments: abnormal ct of LEFT UPPER ARM Do you want consulting provider notified?: Already Contacted Primary care physician: [facility] Hospital Course: HISTORY OF PRESENT ILLNESS 65-year-old morbidly obese female with past medical history of cardiomyopathy, congestive heart failure, type 2 diabetes, hyperlipidemia, possible obstructive sleep apnea who had previous history of abscess who presented to the emergency department at [facility] today 07/16/2020 with complaint of for drainage abscess and discomfort in the left axilla. Remember having similar episode a few years ago of the right side ended up with sepsis and infection spread to the lower abdominal area ended up having to have a wound care and wound VAC with IV antibiotic for long time. Patient apparently started having drainage with a black spot in the axilla with smell coming from that area with copious amount of drainage for the last 48 hours. Developed to have fever and chills and overall not feeling well well she was seen and evaluated her white blood cell weren't 28th 1900 left shift surprisingly had severe hyponatremia with sodium of 127 lactic acid was only 1.9 blood sugar was 169 mildly stage III chronic kidney disease was found as well. She was giving 1 g of Vanco along with ceftriaxone culture was done patient was admitted to the hospital will be seen general surgery along with infectious disease. Patient does not remember having any injury no shaving no hair follicular problem recently in her opinion this is spontaneous happen by itself. Also the smell and the look of this area looks like more necrotic tissue as necrotizing fasciitis. We'll continue antibiotics and add anaerobic coverage also will involve infectious disease and CAT scan of the axilla will be done patient most likely will need to go for I and D. 07/17: Patient is seen today on the pediatric medical floor for follow-up. CAT scan revealed soft tissue air on the left chest wall extending into the left axilla consistent with wound. Complete extent of the air is not evaluated. Air extends into the upper arm. No evidence of discrete renal abscess fluid collec tion. Consults in place of general surgery and infectious disease. Patient encouraged to remain nothing by mouth until evaluated by general surgery. She has been afebrile, heart rate 89, blood pressure 98/47, pulse ox 90% on room air. Evelin BC 26.6, hemoglobin 13.8, platelet count 251. Sodium 131, potassium 3.9, chloride 102, CO2 19, BUN 43 and creatinine 1.08. Blood sugars running between 148 and 232. Alkaline phosphatase 128. Patient is currently on ceftriaxone, Flagyl and vancomycin. 07/18: Patient underwent bedside debridement yesterday with Dr. Lovelace on. She continues to have soreness and tenderness to the axilla region. She has been seen by Dr. Martínez from infectious disease with recommendations for Unasyn and vancomycin. Local wound care will be in the form of Santyl. Patient has been afebrile, heart rate 78, blood pressure 104/54, pulse ox 95% on room air. Repeat blood work reveals Evelin BC 24. Sodium 132, CO2 19.. Blood sugars running between 70 and 146. Patient refused insulin this morning. Alkaline phosphatase 131. Wound culture is group D enterococcus. 07/19: The patient continues to have significant pain and discomfort along with swelling redness to the left axilla, left arm and chest wall, breast. WBC 24.1, hemoglobin 12.7. Platelet count 279. Sodium 141, potassium 3.3, chloride 108, CO2 21, BUN 27, creatinine 0.7. Blood sugars running between 140s and 195. Alkaline phosphatase 150. Patient has been afebrile, heart rate 79, blood pressure 105/50, pulse ox 93% on room air. Culture finalized with Enterococcus faecalis. Patient continued on Unasyn. We have discontinue vancomycin. 07/20: Patient has decreased swelling to the left arm and hand and pain is improved today, less redness. Patient has been afebrile, heart rate 71, blood pressure 116/66, pulse ox 95% on room air. WBC 27.5, hemoglobin 13. Sodium 136, potassium 3.7, chloride 110, CO2 21, BUN 30 creatinine 0.83. Blood sugars run between 88 and 132. Alkaline phosphatase 181. We'll add an consults for PT and OT as patient may require subacute rehab. Anticipate discharge on Tuesday or Tuesday of this week. 07/21: Patient has significant swelling to the left arm today. She continues to complain of soreness. Redness is increased as well. CAT scan has been ordered which reveals persistent gas containing soft tissue infection extending and visualized portion of the left upper extremity through the axilla into the anterior thorax deeper tissues, necrotizing fasciitis cannot be excluded. No focal fluid collection or drainable abscess. Consult added for orthopedics as recommended by general surgery and they did not wish to do surgical intervention recommend transferring. Patient will be transferred [facility] today once all arrangements are completed. Patient has been afebrile, heart rate 65, blood pressure 104/68, pulse ox 93-98% on room air. WBC increased to 33.6, hemoglobin 12.7. Sodium 136, potassium 3.8, chloride 110, CO2 19, BUN 23 and creatinine 0.76. Blood sugar 101. AST 36, ALT 38, alkaline phosphatase 240. ASSESSMENT AND PLAN 1 sepsis secondary to abscess and cellulitis and necrotizing fasciitis. 2 abscess and necrotizing fasciitis in the left axilla. 3 severe leukocytosis: Secondary to abscess and sepsis 4 severe hyponatremia: Most likely SIADH from the severity of the infection 5 severe congestive heart failure, probable diastolic 6 type 2 diabetes, A1c 6.5 7 hyperlipidemia 8 chronic kidney disease: Stage III 9 smoking cessation DISCHARGE PLAN Transfer to [facility] Impression and plan of care have been directed as dictated by the signing physician. Kailee Teran nurse practitioner acting as scribe for signing physician. Patient Condition at Discharge: Stable Plan - Discharge Summary Discharge Rx Participant: Yes New Discharge Prescriptions: No Action Beclomethasone Dipropionate [Qvar 40 mcg/puff] 2 puff INHALATION RT-BID carvediloL [Coreg] 6.25 mg PO BID Spironolactone [Aldactone] 25 mg PO DAILY Furosemide [Lasix] 40 mg PO BID lisinopriL [Zestril] 5 mg PO DAILY metFORMIN HCL 1,000 mg PO BID Cholecalciferol [Vitamin D3 (25 Mcg = 1000 Iu)] 5,000 unit PO DAILY Aspirin 81 mg PO DAILY Insulin Glargine [Lantus] 50 unit SQ QAM Atorvastatin [Lipitor] 40 mg PO HS Discharge Medication List Beclomethasone Dipropionate [Qvar 40 mcg/puff] 2 puff INHALATION RT-BID 08/19/14 [History] Furosemide [Lasix] 40 mg PO BID 08/19/14 [History] Spironolactone [Aldactone] 25 mg PO DAILY 08/19/14 [History] carvediloL [Coreg] 6.25 mg PO BID 08/19/14 [History] Aspirin 81 mg PO DAILY 07/16/20 [History] Atorvastatin [Lipitor] 40 mg PO HS 07/16/20 [History] Cholecalciferol [Vitamin D3 (25 Mcg = 1000 Iu)] 5,000 unit PO DAILY 07/16/20 [History] Insulin Glargine [Lantus] 50 unit SQ QAM 07/16/20 [History] lisinopriL [Zestril] 5 mg PO DAILY 07/16/20 [History] metFORMIN HCL 1,000 mg PO BID 07/16/20 [History] Follow up Appointment(s)/Referral(s): [facility] [Primary Care Provider] - 1-2 days Activity/Diet/Wound Care/Special Instructions: Wants flu shot and pneumonia shot before discharge.
[2020-07-21 17:49] LABS: Glucose,Whole Blood 65 mg/dL (75-99)
[2020-07-21 18:05] LABS: Glucose,Whole Blood 64 mg/dL (75-99)
[2020-07-21 18:19] LABS: Glucose,Whole Blood 75 mg/dL (75-99)
--- NOTE | 2020-07-21 18:35 | PN ---
PROGRESS NOTE DATE OF SERVICE: 07/21/2020 REASON FOR FOLLOWUP: Left axillary upper extremity abscess and cellulitis. INTERVAL HISTORY: The patient was seen on rounds this afternoon. The patient has been afebrile. She has been complaining of pain to the left axillary area. No chest pain, shortness of breath or cough. No abdominal pain or diarrhea. PHYSICAL EXAMINATION: Blood pressure 120/51 with a pulse of 73, temperature 98.7. She is 94% on room air. General description is a middle-aged female up in the chair in no distress. Left upper extremity swelling and redness slightly decreased from the line. No drainage. LUNGS: Unlabored breathing. Clear to auscultation anteriorly. HEART: S1, S2. Regular rate and rhythm. ABDOMEN: Soft. No tenderness. LABS: Hemoglobin is 12.7, white count 33.6. BUN of 23, creatinine 0.76. DIAGNOSTIC IMPRESSION AND PLAN: Patient with right axillary abscess. CT infection. Orthopedics has been consulted. Recommending transfer to tertiary care. She will continue Unasyn. Will add daptomycin by surgery extensive debridement and deep cultures. Continue supportive care. MMODL / IJN: [id number] /
[2020-07-21 20:21] LABS: Glucose,Whole Blood 186 mg/dL (75-99)
[2020-07-21 20:25] VITALS: BP 104/64; PULSE 78; TEMP 98.4
[2020-07-21] MEDS: SODIUM CHLORIDE 0.9% 1,000 ML IV SCH (21:04)
[2020-07-21] MEDS: MELATONIN 5 MG TABLET PO SCH (21:05)
== END 2020-07-21 22:30 | disposition short-term general hospital (02) | DRG 871 ==
LOC: EC 10:30 → 6PED 13:30
PROVIDERS: ADMIT Internal Medicine Geriatric Medicine; ATTEND Internal Medicine Geriatric Medicine
PROC: 0X950ZX Drainage of Left Axilla, Open Approach, Diagnostic (ICD-10-PCS; principal; 2020-07-16)
PROC: 0X950ZX Drainage of Left Axilla, Open Approach, Diagnostic (ICD-10-PCS; 2020-07-17)
DX: A41.81 Sepsis due to Enterococcus (principal); M72.6 Necrotizing fasciitis; Z68.42 Body mass index [BMI] 45.0-49.9, adult; E22.2 Syndrome of inappropriate secretion of antidiuretic hormone; I42.9 Cardiomyopathy, unspecified; I50.32 Chronic diastolic (congestive) heart failure; L02.412 Cutaneous abscess of left axilla; L03.112 Cellulitis of left axilla; I13.0 Hypertensive heart and chronic kidney disease with heart failure and stage 1 through stage 4 chronic kidney disease, or unspecified chronic kidney disease; L03.114 Cellulitis of left upper limb; L02.414 Cutaneous abscess of left upper limb; L03.312 Cellulitis of back [any part except buttock and flank]; L03.311 Cellulitis of abdominal wall; J98.2 Interstitial emphysema; E11.22 Type 2 diabetes mellitus with diabetic chronic kidney disease; E66.01 Morbid (severe) obesity due to excess calories; E86.0 Dehydration; J44.9 Chronic obstructive pulmonary disease, unspecified; M06.9 Rheumatoid arthritis, unspecified; N18.30 Chronic kidney disease, stage 3 unspecified; Z79.4 Long term (current) use of insulin; Z20.822 Contact with and (suspected) exposure to COVID-19; G47.33 Obstructive sleep apnea (adult) (pediatric); E78.5 Hyperlipidemia, unspecified; H91.91 Unspecified hearing loss, right ear; H54.61 Unqualified visual loss, right eye, normal vision left eye; M19.90 Unspecified osteoarthritis, unspecified site; T38.3X6A Underdosing of insulin and oral hypoglycemic [antidiabetic] drugs, initial encounter; Z91.128 Patient's intentional underdosing of medication regimen for other reason; F17.210 Nicotine dependence, cigarettes, uncomplicated; Z71.6 Tobacco abuse counseling; Z79.82 Long term (current) use of aspirin; Z79.51 Long term (current) use of inhaled steroids; Z79.899 Other long term (current) drug therapy; Z71.3 Dietary counseling and surveillance; Z90.49 Acquired absence of other specified parts of digestive tract; Z60.2 Problems related to living alone; Z86.59 Personal history of other mental and behavioral disorders; Z88.5 Allergy status to narcotic agent; Z91.018 Allergy to other foods; Z80.9 Family history of malignant neoplasm, unspecified; Z82.49 Family history of ischemic heart disease and other diseases of the circulatory system; Z83.3 Family history of diabetes mellitus; Z86.69 Personal history of other diseases of the nervous system and sense organs
CPT/HCPCS: 36415; 71260; 80053; 83036; 83605; 85025; 85027; 85379; 87040; 87070; 87077; 87186; 87205; 87635; 94640; 96361; 96365; 96375; 99284

== ENCOUNTER 2020-11-12 07:22 | Emergency (ER) | payer OTHER ==
[2020-11-12 07:32] VITALS: RESP 18
[2020-11-12] MEDS ORDERED: MORPHINE SULFATE 2 MG/ML SYRINGE IM STA (07:33)
[2020-11-12] MEDS ORDERED: KETOROLAC 15 MG/ML 1 ML VIAL IM STA (07:33)
--- NOTE | 2020-11-12 07:48 | ED ---
General Adult HPI - General Chief complaint: Fall Stated complaint: hip pain Time Seen by Provider: 11/12/20 07:25 Source: patient, EMS, RN notes reviewed, old records reviewed Mode of arrival: EMS Limitations: physical limitation - History of Present Illness Initial comments: This is a 65-year-old female ordered who presents emergency department after she fell yesterday. Patient states she fell and she hurt her right thigh and lower back. Patient states she was able to get up with assistance and then was walking around with a walker but it hurt more today so she decided come and be evaluated. Patient denies hitting her head patient denies hurting her neck patient denies any numbness weakness per patient denies any upper extremity injury. Patient's denies any arm pain patient denies any chest or upper back pain. Patient states she does have a little right lower back pain. Patient denies any knee pain or ankle pain. Patient states she fell she slipped but she was not feeling near syncopal. - Related Data Home Medications Medication Instructions Recorded Confirmed Beclomethasone Dipropionate [Qvar 2 puff INHALATION RT-BID PRN 08/19/14 11/12/20 40 mcg/puff] Furosemide [Lasix] 40 mg PO DAILY 08/19/14 11/12/20 carvediloL [Coreg] 6.25 mg PO BID 08/19/14 11/12/20 Aspirin 81 mg PO HS 07/16/20 11/12/20 Atorvastatin [Lipitor] 40 mg PO HS 07/16/20 11/12/20 metFORMIN HCL 1,000 mg PO BID 07/16/20 11/12/20 Ergocalciferol (Vitamin D2) 1,250 mcg PO MAN@2100 11/12/20 11/12/20 [Vitamin D2 (50,000 Iu)] Gabapentin [Neurontin] 400 mg PO TID 11/12/20 11/12/20 Insulin Glargine,Hum.rec.anlog 50 unit SQ HS 11/12/20 11/12/20 [Lantus Solostar] methocarbamoL [Methocarbamol] 500 mg PO BID 11/12/20 11/12/20 Allergies Allergy/AdvReac Type Severity Reaction Status Date / Time strawberry Allergy Intermediate Rash/Hives Verified 11/12/20 09:55 codeine AdvReac Severe Chest Pain Verified 11/12/20 09:55 Review of Systems ROS Statement: Those systems with pertinent positive or pertinent negative responses have been documented in the HPI. ROS Other: All systems not noted in ROS Statement are negative. 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 Patient is nontoxic and well- hydrated and is in mild distress. ENT: Neck is soft and supple. No significant lymphadenopathy is noted. Oropharynx is clear. Moist mucous membranes. Neck has full range of motion without eliciting any pain. EYES: The sclera were anicteric and conjunctiva were pink and moist. Extraocular movements were intact and pupils were equal round and reactive to light. Eyelids were unremarkable. PULMONARY: Unlabored respirations. Good breath sounds bilaterally. No audible rales rhonchi or wheezing was noted. CARDIOVASCULAR: There is a regular rate and rhythm without any murmurs gallops or rubs. ABDOMEN: Soft and nontender with normal bowel sounds. SKIN: Skin is clear with no lesions or rashes and otherwise unremarkable. NEUROLOGIC: Patient is alert and oriented x3. Cranial nerves II through XII are grossly intact. Motor and sensory are also intact. Normal speech, volume and content. Symmetrical smile. MUSCULOSKELETAL: Normal extremities with adequate strength and full range of motion. Patient has some tenderness in the right lower back as well as the right lateral hip. LYMPHATICS: No significant lymphadenopathy is noted PSYCHIATRIC: Normal psychiatric evaluation. Limitations: physical limitation Course Vital Signs 11/12/20 11/12/20 11/12/20 07:26 09:00 10:49 Temperature 98.1 F Pulse Rate 77 64 66 Respiratory 18 18 18 Rate Blood Pressure 128/76 122/62 128/47 O2 Sat by Pulse 98 96 97 Oximetry Medical Decision Making - Medical Decision Making X-ray of the right hip shows greater trochanteric fracture with no displacement. Computed tomography scan shows a greater trochanteric fracture and or so came down and saw the patient the case was reviewed with Dr. Mari and they indicated the patient to be discharged home because it is a nonsurgical fracture and patient wanted to try to go home and follow-up with orthopedist as an outpatient. Disposition Clinical Impression: Trochanteric fracture of femur, Fall Disposition: HOME SELF-CARE Instructions (If sedation given, give patient instructions): Fall Prevention for Older Adults (ED) Is patient prescribed a controlled substance at d/c from ED?: No Referrals: Mickey Mari MD [STAFF PHYSICIAN] - 1-2 days Time of Disposition: 11:55
--- NOTE | 2020-11-12 08:44 | XR ---
EXAMINATION TYPE: XR Hip RT and AP Pelvis, XR femur RT DATE OF EXAM: 11/12/2020 COMPARISON: NONE HISTORY: Fall injury with pain. TECHNIQUE: A single AP view of the pelvis is obtained. Two views of the right hip and femur are obtai brii. FINDINGS: There is acute fracture with displaced 3.3 cm fracture fragment involving the greater troch anter of the right proximal femur. No hip joint dislocation. Mild to moderate axial joint space loss and right hip. Pubic symphysis is intact. Asymmetric narrowing of the right sacroiliac joint. [place] osseous structures are demineralized. Left hip shows moderate to severe joint space loss with loss of femoral head shape and sclerosis in t he femoral head suggesting avascular necrosis and moderate to advanced joint arthropathy. Right femur shows no additional acute fracture or dislocation distally. Byii-oi-wodnjpap tricompartme nt joint space loss in the right knee is noted. Overlying clothing material is present. IMPRESSION: There is acute avulsion type displaced fracture greater trochanter level right proximal femur.
--- NOTE | 2020-11-12 08:48 | XR ---
EXAMINATION TYPE: XR lumbosacral spine min 4V DATE OF EXAM: 11/12/2020 CLINICAL HISTORY: Low back pain after falling injury TECHNIQUE: Frontal, lateral, and oblique images of the lumbar spine are obtained. COMPARISON: None FINDINGS: There are 5 lumbar type vertebral bodies identified. Alignment is maintained. Moderate to severe disc space narrowing with endplate sclerosis along with severe anterior and right lateral spur ring L2-L3 level. Moderate disc space narrowing L5-S1 level. No acute fracture or dislocation is seen . Vertebral body heights are maintained and the lumbar spine. There is mild chronic compression or an terior wedging at T11 and to lesser degree at adjacent T10 and T12 levels. Oblique images appear with in normal limits. Mild overlying atherosclerotic vascular calcification noted. IMPRESSION: As above.
[2020-11-12 10:51] VITALS: PULSE 66
--- NOTE | 2020-11-12 11:11 | CT ---
EXAMINATION TYPE: CT hip RT wo con DATE OF EXAM: 11/12/2020 COMPARISON: Pelvic and right hip x-ray earlier today. HISTORY: Fall injury yesterday. Hip and leg pain today. Abnormal x-ray. CT DLP: 1165.6 mGycm Automated exposure control for dose reduction was used. FINDINGS: Correlating with x-ray there is acute comminuted slightly displaced fracture involving the greater tr ochanter of the right proximal femur. Largest fracture fragment measures roughly 3.0 cm. A few additi onal tiny fracture fragments are seen. There is no fracture line extension into the femoral neck or t he lesser trochanter. No hip joint dislocation. Slbi-kj-hhebdgrs axial joint space loss and acetabula r spurring. Dlel-wr-nwvytkqs anterior skin thickening and subcutaneous edema is partially imaged. Muscle bulk ri ght thigh is fairly well-maintained. No groin hernia or adenopathy. Visualized pelvic structures show no suspicious fluid. IMPRESSION: Acute comminuted minimally displaced fracture right proximal femur involving greater troc hanter is redemonstrated.
[2020-11-12] MEDS ORDERED: ACET/COD 300 MG/30 MG STARTER PACK 6 TAB BTL PO STA (12:01)
[2020-11-12 12:05] VITALS: BP 118/48; TEMP 98
== END 2020-11-12 12:03 | disposition home or self-care (01) ==
LOC: EC 07:22
DX: S72.111A Displaced fracture of greater trochanter of right femur, initial encounter for closed fracture (principal); I11.0 Hypertensive heart disease with heart failure; I50.9 Heart failure, unspecified; E11.9 Type 2 diabetes mellitus without complications; M19.90 Unspecified osteoarthritis, unspecified site; F17.200 Nicotine dependence, unspecified, uncomplicated; Z90.49 Acquired absence of other specified parts of digestive tract; Z79.84 Long term (current) use of oral hypoglycemic drugs; Z79.82 Long term (current) use of aspirin; W19.XXXA Unspecified fall, initial encounter
CPT/HCPCS: 72110; 73502; 73552; 73700; 99284; 96372 ×2; J2270; J1885

== ENCOUNTER 2021-02-23 12:03 | Inpatient (IN) | payer MEDICARE, OTHER ==
--- NOTE | 2021-02-23 12:54 | ED ---
General Adult HPI - General Chief complaint: Wound/Laceration Stated complaint: Wound vac infection Time Seen by Provider: 02/23/21 12:39 Source: patient Mode of arrival: wheelchair Limitations: physical limitation - History of Present Illness Initial comments: Dictation was produced using [employer] dictation software. please excuse any grammatical, word or spelling errors. Chief Complaint: 66-year-old female presents with concerns of left breast infection History of Present Illness: She is 66-year-old female she has past medical hi story of significant infections to different soft tissues in her body. 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 She has a wound VAC placed to her left lateral breast. She is just her wound VAC once a week. States that her home health care nurse came to the hospital to evaluate her and she sent her to the hospital for concerns of breast infection. Patient has erythematous left breast. Denies any nipple discharge. No fever or constitutional symptoms. Patient has a history of multiple operations to remove multidrug resistant bacteria to her skin. She follows up with the wound clinic here often. Her next wound clinic appointment is Tuesday. The ROS documented in this emergency department record has been reviewed and confirmed by me. Those systems with pertinent positive or negative responses have been documented in the HPI. All other systems are other negative and/or noncontributory. PHYSICAL EXAM: General Impression: Alert and oriented x3, not in acute distress HEENT: Normocephalic atraumatic, extra-ocular movements intact, pupils equal and reactive to light bilaterally, mucous membranes moist. Cardiovascular: Heart regular rate and rhythm Chest: Able to complete full sentences, no retractions, no tachypnea Breast: Erythema to the left breast at the 6 to 9 o'clock position, erythema is blanching, area is warm to touch, she states it's discomfort but not exquisitely tender. Abdomen: abdomen soft, non-tender, non-distended, no organomegaly Musculoskeletal: Pulses present and equal in all extremities, no peripheral edema Motor: no focal deficits noted Neurological: CN II-XII grossly intact, no focal motor or sensory deficits noted Skin: Intact with no visualized rashes Psych: Normal affect and mood ED course: 66-year-old female presents to the emergency department for concerns of left breast infection. All signs upon arrival are within acceptable limits. She denies any constitutional symptoms. Laboratory evaluation obtained. No leukocytosis. Rest of CBC within acceptable limits. Metabolic panel is unremarkable. CRP is 3.1. Chart review form. Patient's microbiology tab was reviewed. She has had severe cellulitic infections to the left arm and left axilla that required surgical intervention. Patient has high risk for severe cellulitis. It appears that sensitivities of those infections were sensitive to vancomycin. This concerned that this is a recurrent infection is now infecting her left breast. Patient started on IV vancomycin. Patient is agreeable with admission. Infectious disease consulted. - Related Data Home Medications Medication Instructions Recorded Confirmed Beclomethasone Dipropionate [Qvar 2 puff INHALATION RT-BID 08/19/14 02/23/21 40 mcg/puff] Furosemide [Lasix] 40 mg PO BID 08/19/14 02/23/21 carvediloL [Coreg] 6.25 mg PO BID 08/19/14 02/23/21 Aspirin 81 mg PO DAILY 07/16/20 02/23/21 Atorvastatin [Lipitor] 40 mg PO HS 07/16/20 02/23/21 metFORMIN HCL [Glucophage] 1,000 mg PO BID 07/16/20 02/23/21 Gabapentin [Neurontin] 400 mg PO BID 11/12/20 02/23/21 Insulin Glargine,Hum.rec.anlog 32 unit SQ HS 11/12/20 02/23/21 [Lantus Solostar] methocarbamoL [Methocarbamol] 500 mg PO BID 11/12/20 02/23/21 Folic Acid 0.4 mg PO DAILY 02/23/21 02/23/21 Sennosides/Docusate Sodium [Senna 1 tab PO DAILY 02/23/21 02/23/21 Plus 8.6-50 mg Tablet] Allergies Allergy/AdvReac Type Severity Reaction Status Date / Time strawberry Allergy Intermediate Rash/Hives Verified 02/23/21 13:34 Review of Systems ROS Statement: Those systems with pertinent positive or pertinent negative responses have been documented in the HPI. ROS Other: All systems not noted in ROS Statement are negative. 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 and had surgery on it with wound vac 2017 Past Anesthesia/Blood Transfusion Reactions: No Reported Reaction Past Psychological History: Anxiety, Panic Disorder Smoking Status: Current every day smoker Past Alcohol Use History: Occasional Past Drug Use History: None Reported - Past Family History Brother(s) Family Medical History: Cancer Mother Family Medical History: Coronary Artery Disease (CAD), Diabetes Mellitus General Exam Limitations: physical limitation Course Vital Signs 02/23/21 12:21 Temperature 98.3 F Pulse Rate 72 Respiratory 18 Rate Blood Pressure 115/68 O2 Sat by Pulse 96 Oximetry Medical Decision Making - Lab Data Result diagrams: 02/23/21 13:21 02/23/21 13:21 Lab Results 02/23/21 02/23/21 Range/Units 13:21 13:21 WBC 10.3 (3.8-10.6) k/uL RBC 5.12 (3.80-5.40) m/uL Hgb 15.7 (11.4-16.0) gm/dL Hct 47.9 H (34.0-46.0) % MCV 93.4 (80.0-100.0) fL MCH 30.6 (25.0-35.0) pg MCHC 32.8 (31.0-37.0) g/dL RDW 16.0 H (11.5-15.5) % Plt Count 219 (150-450) k/uL MPV 8.5 Neutrophils % 85 % Lymphocytes % 8 % Monocytes % 4 % Eosinophils % 2 % Basophils % 0 % Neutrophils # 8.8 H (1.3-7.7) k/uL Lymphocytes # 0.8 L (1.0-4.8) k/uL Monocytes # 0.4 (0-1.0) k/uL Eosinophils # 0.2 (0-0.7) k/uL Basophils # 0.0 (0-0.2) k/uL Sodium 137 (137-145) mmol/L Potassium 4.9 (3.5-5.1) mmol/L Chloride 109 H (98-107) mmol/L Carbon Dioxide 22 (22-30) mmol/L Anion Gap 6 mmol/L BUN 14 (7-17) mg/dL Creatinine 0.64 (0.52-1.04) mg/dL Est GFR (CKD-EPI)AfAm >90 (>60 ml/min/1.73 sqM) Est GFR (CKD-EPI)NonAf >90 (>60 ml/min/1.73 sqM) Glucose 92 (74-99) mg/dL Calcium 8.8 (8.4-10.2) mg/dL C-Reactive Protein 3.1 H (<1.0) mg/dL Disposition Clinical Impression: Cellulitis of breast Disposition: ADMITTED IP TO THIS HOSP Condition: Fair Referrals: [facility] [Primary Care Provider] - 1-2 days
[2021-02-23 13:40] LABS: Basophils % (A) 0 %; Eosinophils # (A) 0.2 k/uL (0-0.7); Eosinophils % (A) 2 %; HCT 47.9 % (34.0-46.0); HGB 15.7 gm/dL (11.4-16.0); Lymphocytes # (A) 0.8 k/uL (1.0-4.8); Lymphocytes % (A) 8 %; MCH 30.6 pg (25.0-35.0); MCHC 32.8 g/dL (31.0-37.0); MCV 93.4 fL (80.0-100.0); Mean Platelet Volume 8.5; Monocytes # (A) 0.4 k/uL (0-1.0); Monocytes % (A) 4 %; Neutrophils # (A) 8.8 k/uL (1.3-7.7); Neutrophils % (A) 85 %; Platelet Count 219 k/uL (150-450); RBC 5.12 m/uL (3.80-5.40); WBC 10.3 k/uL (3.8-10.6)
[2021-02-23 13:56] LABS: African American GFR (CKD) >90 (>60 ml/min/1.73 sqM); Anion Gap 6 mmol/L; Blood Urea Nitrogen 14 mg/dL (7-17); C Reactive Protein 3.1 mg/dL (<1.0); Calcium 8.8 mg/dL (8.4-10.2); Carbon Dioxide 22 mmol/L (22-30); Chloride 109 mmol/L (98-107); Glucose 92 mg/dL (74-99); Non-African American GFR(CKD) >90 (>60 ml/min/1.73 sqM); Sodium 137 mmol/L (137-145)
[2021-02-23 13:58] LABS: Potassium 4.9 mmol/L (3.5-5.1)
[2021-02-23] MEDS ORDERED: VANCOMYCIN IV PER PHARMACY 1 EACH MISC MISCELLANE PRN (14:22)
[2021-02-23] MEDS ORDERED: NALOXONE 0.4 MG/ML 1 ML VIAL IV PRN (14:22)
[2021-02-23] MEDS ORDERED: VANCOMYCIN 2,000 MG in SODIUM CHLORIDE 0.9% 500 ML 500 ML IVPB STA (14:27)
[2021-02-23] MEDS: SODIUM CHLORIDE 0.9% 1,000 ML IV SCH (16:01)
--- NOTE | 2021-02-23 18:05 | P.HPIM ---
History of Present Illness H&P Date: 02/23/21 Chief Complaint: Breasts cellulitis 65-year-old morbidly obese female with past medical history of cardiomyopathy, congestive heart failure, type 2 diabetes, hyperlipidemia, possible obstructive sleep apnea who had previous history of abscess who presented to the emergency d epartment at [facility] . Patient also remembers aving similar episode a few years ago of the right side ended up with sepsis and infection spread to the lower abdominal area ended up having to have a wound care and wound VAC with IV antibiotic for long time. Patient admitted in July 2020 necrotic tissue as necrotizing fasciitis involving the left axilla, for which she is transferred to [facility] after failure of a local I&D of the abscess, by Dr. Olson and IV antibiotics.. 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 Patient now comes into the emergency room secondary to concerns of left breast infection which has changed 3 days prior to admission. She has had the original wound since July 2020, for which she had 14 surgeries at [facility], currently has been managed with a wound VAC since July 2020. She has history of drug resistant bacteria, for which she has had wound VAC on the left breast, she is being managed by home care nurse, and wound care clinic Dr. Powell Every Tuesday. Labs show CRP of 3.1, CBC is within normal limits, she is noted to have severe cellulitic infections, requiring surgical intervention, previous culture in July 2020, shows Enterococcus faecalis, sensitive to vancomycin and quinolone's resistant to tetracycline and erythromycin and gentamicin. Review of Systems Constitutional: Reports as per HPI, Reports anorexia, Reports chills, Reports malaise, Denies chronic headaches, Denies chronic pain, Denies daytime sleepiness, Denies fatigue, Denies fever, Denies lethargy, Denies night sweats, Denies poor appetite, Denies sweats, Denies weakness, Denies weight gain, Denies weight loss Cardiovascular: Reports as per HPI, Denies chest pain, Denies claudication, Denies decreased exercise tolerance, Denies dyspnea on exertion, Denies edema, Denies high blood pressure, Denies irregular heart beat, Denies leg edema, Denies lightheadedness, Denies orthopnea, Denies palpitations, Denies paroxysmal nocturnal dyspnea, Denies phlebitis, Denies rapid heart beat, Denies shortness of breath, Denies syncope Respiratory: Reports as per HPI, Denies congestion, Denies cough, Denies cough with sputum, Denies dyspnea, Denies excessive sputum, Denies hemoptysis, Denies home oxygen, Denies pain, Denies pain on inspiration, Denies pleurisy, Denies respiratory infections, Denies sleep apnea, Denies snoring, Denies wheezing Gastrointestinal: Reports as per HPI, Denies abdominal pain, Denies belching, Denies bloating, Denies BRBPR, Denies change in bowel habits, Denies coffee ground emesis, Denies constipation, Denies diarrhea, Denies dyspepsia, Denies early satiety, Denies excessive gas, Denies heartburn, Denies hematemesis, Denies hematochezia, Denies indigestion, Denies jaundice, Denies lactose into lerance, Denies loss of appetite, Denies melena, Denies nausea, Denies vomiting Genitourinary: Reports as per HPI Menstruation: Reports as per HPI Musculoskeletal: Reports as per HPI, Denies frequent falls, Denies gait dysfun ction, Denies hot joints, Denies limitation of motion Integumentary: Reports color changes, Reports rash, Reports wounds Neurological: Reports as per HPI, Denies aphasia, Denies ataxia, Denies balance difficulties, Denies burning pain, Denies change in mentation, Denies change in smell/taste, Denies change in speech, Denies confusion, Denies convulsions, Denies double vision, Denies gait dysfunction, Denies head injury, Denies headaches, Denies hearing difficulties, Denies lack of coordination, Denies loss of vision, Denies memory loss, Denies migraines, Denies motor disturbance, Denies numbness, Denies paralysis, Denies paresthesias, Denies seizures, Denies sensory deficit, Denies spasticity, Denies syncope, Denies tic, Denies tingling, Denies transient paralysis, Denies tremors, Denies vertigo, Denies weakness, Denies visual changes Psychiatric: Reports as per HPI, Denies anhedonia, Denies anxiety, Denies anxi ety attacks, Denies change in appetite, Denies change in libido, Denies change in sleep habits, Denies confusion, Denies depression, Denies difficulty concentrating, Denies disorientation, Denies hallucinations, Denies hopelessness, Denies hypersomnia, Denies insomnia, Denies irritability, Denies memory loss, Denies mood swings, Denies paranoia, Denies sadness/tearfulness, Denies sleep disturbances, Denies suicidal ideation Endocrine: Reports as per HPI Hematologic/Lymphatic: Reports as per HPI Allergic/Immunologic: Reports as per HPI, Denies allergic rhinitis, Denies anaphylaxis, Denies angioedema, Denies gluten intolerance, Denies persistent infections, Denies seasonal allergies, Denies urticaria, Denies wheezing 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 and had surgery on it with wound vac 2018 Past Anesthesia/Blood Transfusion Reactions: No Reported Reaction Past Psychological History: Anxiety, Panic Disorder Smoking Status: Current every day smoker Past Alcohol Use History: Occasional Past Drug Use History: None Reported - Past Family History Brother(s) Family Medical History: Cancer Mother Family Medical History: Coronary Artery Disease (CAD), Diabetes Mellitus Medications and Allergies Home Medications Medication Instructions Recorded Confirmed Type Beclomethasone Dipropionate [Qvar 2 puff INHALATION RT-BID 08/19/14 02/23/21 History 40 mcg/puff] Furosemide [Lasix] 40 mg PO BID 08/19/14 02/23/21 History carvediloL [Coreg] 6.25 mg PO BID 08/19/14 02/23/21 History Aspirin 81 mg PO DAILY 07/16/20 02/23/21 History Atorvastatin [Lipitor] 40 mg PO HS 07/16/20 02/23/21 History metFORMIN HCL [Glucophage] 1,000 mg PO BID 07/16/20 02/23/21 History Gabapentin [Neurontin] 400 mg PO BID 11/12/20 02/23/21 History Insulin Glargine,Hum.rec.anlog 32 unit SQ HS 11/12/20 02/23/21 History [Lantus Solostar] methocarbamoL [Methocarbamol] 500 mg PO BID 11/12/20 02/23/21 History Folic Acid 0.4 mg PO DAILY 02/23/21 02/23/21 History Sennosides/Docusate Sodium [Senna 1 tab PO DAILY 02/23/21 02/23/21 History Plus 8.6-50 mg Tablet] Allergies Allergy/AdvReac Type Severity Reaction Status Date / Time strawberry Allergy Intermediate Rash/Hives Verified 02/23/21 13:34 Physical Exam Vitals: Vital Signs Temp Pulse Resp BP Pulse Ox 02/23/21 12:21 98.3 F 72 18 115/68 96 Intake and Output 02/23/21 02/23/21 02/23/21 06:59 14:59 22:59 Other: Weight 131.542 kg - Constitutional General appearance: cooperative, no acute distress - EENT Eyes: anicteric sclerae, EOMI, PERRLA, dentition normal, normal appearance ENT: NA/AT, normal oropharynx - Neck Neck: normal ROM - Respiratory Respiratory: bilateral: CTA, negative: diminished, dullness, rales - Cardiovascular Rhythm: regular Heart sounds: normal: S1, S2 Abnormal Heart Sounds: no systolic murmur, no diastolic murmur, no rub, no S3 Gallop, no S4 Gallop, no click, no other - Gastrointestinal General gastrointestinal: normal bowel sounds, soft - Integumentary Erythema to the entire left breast with warmth, between 6:00 to 9 o'clock position, blanching, there is no fluctuance no induration Tender to Touch. Wound VAC below the axillae region towards the tail of the breast multiple scar tissue in the axilla and upper arms Integumentary: decreased turgor, normal - Neurologic Neurologic: CNII-XII intact - Musculoskeletal Musculoskeletal: gait normal, strength equal bilaterally - Psychiatric Psychiatric: A&O x's 3, appropriate affect, intact judgment & insight Results CBC & Chem 7: 02/23/21 13:21 02/23/21 13:21 Labs: Abnormal Lab Results - Last 24 Hours (Table) 02/23/21 02/23/21 Range/Units 13:21 13:21 Hct 47.9 H (34.0-46.0) % RDW 16.0 H (11.5-15.5) % Neutrophils # 8.8 H (1.3-7.7) k/uL Lymphocytes # 0.8 L (1.0-4.8) k/uL Chloride 109 H (98-107) mmol/L C-Reactive Protein 3.1 H (<1.0) mg/dL Thrombosis Risk Factor Assmnt - DVT/VTE Prophylaxis DVT/VTE Prophylaxis: Pharmacologic Prophylaxis ordered - Choose All That Apply Each Factor Represents 1 point: Abnormal pulmonary function (COPD) Each Risk Factor Represents 2 Points: Age 61-74 years Thrombosis Risk Factor Assessment Total Risk Factor Score: 3 Thrombosis Risk Factor Assessment Level: Moderate Risk Assessment and Plan Plan: 1. Left breast cellulitis, with history of enterococcus multidrug resistance, patient currently is on IV vancomycin which is sensitive based on last culture July 2020, however she complained of redness, and itchiness on the IV site, hence it was discontinued . Meropenem 1 g every 8 hours was started instead. consult with Dr. Martínez infectious disease, no need for surgical drainage at this time based on clinical examination, cultures in the blood were obtained, the wound cultures accessible at this time we will try to obtain one. 2. COPD with current tobacco use, without any exacerbation, continue meds from home Flovent 44, 3 Diabetes mellitus type 2, check for A1c, On Levemir 32 units at bedtime, NovoLog scale, patient is on metformin 4. History of significant skin infections in the past, with resulting necrotizing fasciitis in the left axilla, check for IgG a G and E levels, and immunofixation, need evaluate for immunodeficiency, 5. Rash and itching related to vancomycin, we are going to discontinue the vancomycin at this time, and start meropenem, 1 g every 8 hours. Infectious disease for antibiotic management 6. Hyperlipidemia, on Lipitor 40 mg at bedtime 7. GI prophylaxis and DVT prophylaxis Pepcid, and Lovenox Admission, required 2 nights or more, for antibiotic management cultures blood and wound
[2021-02-23 18:21] LABS: Glucose,Whole Blood 109 mg/dL (75-99)
[2021-02-23] MEDS: FUROSEMIDE 40 MG TAB PO SCH (18:24)
[2021-02-23] MEDS: ASPIRIN 81 MG PO SCH (18:24)
[2021-02-23] MEDS: carvediloL 6.25 MG TAB PO SCH (18:24)
[2021-02-23] MEDS: ENOXAPARIN 40 MG/0.4 ML SYRINGE SQ SCH (18:25)
[2021-02-23] MEDS: MEROPENEM 1 GM in SODIUM CHLORIDE 0.9% 100 ML IVPB SCH (20:04)
[2021-02-23] MEDS: FLUTICASONE 44 MCG INHALER INHALATION SCH (20:52)
[2021-02-23 21:25] LABS: Glucose,Whole Blood 92 mg/dL (75-99)
[2021-02-23] MEDS: ATORVASTATIN 40 MG TAB PO SCH (22:31)
[2021-02-23] MEDS: FAMOTIDINE 20 MG TAB PO SCH (22:31)
[2021-02-23] MEDS: GABAPENTIN 400 MG CAP PO SCH (22:32)
[2021-02-23] MEDS: metFORMIN 500 MG TAB PO SCH (22:32)
[2021-02-23] MEDS: methocarbamoL 500 MG TAB PO SCH (22:32)
[2021-02-23] MEDS: INSULIN ASPART (NovoLOG) 100 UNIT/ML VIAL SQ SCH (22:32)
[2021-02-23] MEDS: INSULIN DETEMIR (LEVEMIR) 100 UNIT/ML SYR SQ SCH (22:33)
[2021-02-24] MEDS ORDERED: VANCOMYCIN 2,000 MG in SODIUM CHLORIDE 0.9% 500 ML 500 ML IVPB SCH (04:00)
[2021-02-24] MEDS: MEROPENEM 1 GM in SODIUM CHLORIDE 0.9% 100 ML IVPB SCH ×3 (04:31→21:19)
[2021-02-24 05:03] LABS: Immunoglobulin E 6.86 IU/mL (0.00-114.00)
[2021-02-24 07:13] LABS: Glucose,Whole Blood 88 mg/dL (75-99)
[2021-02-24] MEDS: FLUTICASONE 44 MCG INHALER INHALATION SCH ×2 (09:01→20:57)
[2021-02-24] MEDS: metFORMIN 500 MG TAB PO SCH ×2 (09:20→21:19)
[2021-02-24] MEDS: FOLIC ACID 1 MG TAB PO SCH (09:20)
[2021-02-24] MEDS: FAMOTIDINE 20 MG TAB PO SCH ×2 (09:20→21:19)
[2021-02-24] MEDS: ASPIRIN 81 MG PO SCH (09:20)
[2021-02-24] MEDS: ACETAMINOPHEN TAB 325 MG TAB PO PRN ×2 (09:21→16:48)
[2021-02-24] MEDS: GABAPENTIN 400 MG CAP PO SCH ×2 (09:21→21:19)
[2021-02-24] MEDS: carvediloL 6.25 MG TAB PO SCH ×2 (09:21→16:48)
[2021-02-24] MEDS: ENOXAPARIN 40 MG/0.4 ML SYRINGE SQ SCH (09:21)
[2021-02-24] MEDS: methocarbamoL 500 MG TAB PO SCH ×2 (09:21→21:37)
[2021-02-24] MEDS: FUROSEMIDE 40 MG TAB PO SCH ×2 (09:21→16:48)
[2021-02-24] MEDS: SENNOSIDES-DOCUSATE SODIUM 1 EACH TAB PO SCH (09:21)
[2021-02-24] MEDS: INSULIN ASPART (NovoLOG) 100 UNIT/ML VIAL SQ SCH ×4 (09:22→21:21)
[2021-02-24 10:17] LABS: African American GFR (CKD) >90 (>60 ml/min/1.73 sqM); Anion Gap 6 mmol/L; Blood Urea Nitrogen 9 mg/dL (7-17); Calcium 8.5 mg/dL (8.4-10.2); Carbon Dioxide 21 mmol/L (22-30); Chloride 112 mmol/L (98-107); Glucose 97 mg/dL (74-99); Non-African American GFR(CKD) >90 (>60 ml/min/1.73 sqM); Potassium 3.6 mmol/L (3.5-5.1); Sodium 139 mmol/L (137-145)
[2021-02-24 12:21] LABS: Glucose,Whole Blood 109 mg/dL (75-99)
--- NOTE | 2021-02-24 12:46 | P.CONS ---
History of Present Illness - Reason for Consult Consult date: 02/24/21 Wound care - History of Present Illness This 66-year-old patient known to the wound care center with a nonhealing ulceration to the left breast lateral aspect. Patient previously had a wound VAC in place. Her home care nurse called stating that the patient had increased redness and firmness to the left breast and was directed to the emergency room. Patient found to have cellulitis to the left breast. The wound VAC has been discontinued. Original cause of wound was Surgical Injury. The wound is currently classified as a Full Thickness With Exposed Support Structures wound with etiologies of Necrotizing Infection and Open Surgical Wound and is located on the Left Breast. The wound measures 1cm length x 2cm width x 1cm depth; 1.571cm^2 area and 1.571cm^3 volume. There is muscle, Fat Layer (Subcutaneous Tissue) Exposed, and fascia exposed. There is no tunneling noted, however, there is undermining starting at 10:00 and ending at 2:00 with a maximum distance of 2cm. There is a medium amount of serous drainage noted. The wound margin is well defined and not attached to the wound base. There is large (67-100%) red, pink granulation within the wound bed. There is a small (1-33%) amount of necrotic tissue within the wound bed including Adherent Slough. The periwound skin appearance exhibited: Scarring, Erythema. The periwound skin appearance did not exhibit: Callus, Crepitus, Excoriation, Induration, Rash, Dry/Scaly, Maceration, Atrophie Opp, Cyanosis, Ecchymosis, Hemosiderin Staining, Mottled, Pallor, Rubor. The surrounding wound skin color is noted with erythema. Periwound temperature was noted as No Abnormality. The periwound has tenderness on palpation. Review Of Systems: Constitutional: No fever, no chills, no night sweats. No weight change. No weakness, fatigue or lethargy. No daytime sleepiness. Integumentary:reports wounds, no lesions. No rash or pruritus. No unusual bruising. No change in hair or nails. Physical exam: General Appearance: Alert, cooperative, no distress, appears stated age. Skin: See HPI all other Skin color, texture, tugor normal, no rashes or lesions. Neurologic: Alert oriented x3 Assessment: 1. Nonpressure chronic ulcer skin other sites with fat layer exposure 2. Morbid obesity due to excess calories 3. Necrotizing fasciitis Plan: 1. Apply absorptive silver, saline moistened gauze, dry gauze, ADD secure with paper tape. Change Tuesday with a Tuesday. Patient will follow-up next 03/05 at 1 PM. In the wound care center Thank you for the consultation any questions please contact the wound care center DNP note has been reviewed and discussed with Dr. Powell and the impression and plan of care has been directed as dictated. Past Medical History Past Medical History: Heart Failure, COPD, Diabetes Mellitus, Eye Disorder, Hearing Disorder / Deafness, Hypertension, Musculoskeletal Disorder, Osteoarthritis (OA) Additional Past Medical History / Comment(s): deaf R ear; partially blind R eye, left breast infection. fell at home in november 2020. fx right femur. 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 wound vac on since end september 2020 to november 19. sees wound care centre every tuesday.then reapplied wound vac on december 2020. Jul 2020 had a boil and it broke and obtained a abscess. sent to [facility]. had 13 surgeries total. Past Anesthesia/Blood Transfusion Reactions: No Reported Reaction Past Psychological History: Anxiety, Panic Disorder Smoking Status: Current every day smoker Past Alcohol Use History: Occasional Additional Past Alcohol Use History / Comment(s): smokes one pack daily Past Drug Use History: None Reported - Past Family History Brother(s) Family Medical History: Cancer Mother Family Medical History: Coronary Artery Disease (CAD), Diabetes Mellitus Medications and Allergies Home Medications Medication Instructions Recorded Confirmed Type Beclomethasone Dipropionate [Qvar 2 puff INHALATION RT-BID 08/19/14 02/23/21 History 40 mcg/puff] Furosemide [Lasix] 40 mg PO BID 08/19/14 02/23/21 History carvediloL [Coreg] 6.25 mg PO BID 08/19/14 02/23/21 History Aspirin 81 mg PO DAILY 07/16/20 02/23/21 History Atorvastatin [Lipitor] 40 mg PO HS 07/16/20 02/23/21 History metFORMIN HCL [Glucophage] 1,000 mg PO BID 07/16/20 02/23/21 History Gabapentin [Neurontin] 400 mg PO BID 11/12/20 02/23/21 History Insulin Glargine,Hum.rec.anlog 32 unit SQ HS 11/12/20 02/23/21 History [Lantus Solostar] methocarbamoL [Methocarbamol] 500 mg PO BID 11/12/20 02/23/21 History Folic Acid 0.4 mg PO DAILY 02/23/21 02/23/21 History Sennosides/Docusate Sodium [Senna 1 tab PO DAILY 02/23/21 02/23/21 History Plus 8.6-50 mg Tablet] Allergies Allergy/AdvReac Type Severity Reaction Status Date / Time strawberry Allergy Intermediate Rash/Hives Verified 02/23/21 13:34 Physical Exam Vitals: Vital Signs Temp Pulse Pulse Resp BP BP Pulse Ox 02/24/21 08:00 97.6 F 54 L 16 106/59 91 L 02/24/21 01:43 98.3 F 61 18 110/53 93 L 02/23/21 20:13 97.9 F 67 19 108/68 93 L 02/23/21 20:08 98.2 F 71 18 106/67 96 02/23/21 16:55 70 18 131/97 98 Intake and Output 02/23/21 02/24/21 02/24/21 22:59 06:59 14:59 Intake Total 180 Balance 180 Intake: Oral 180 Other: Voiding Method Toilet # Voids 2 Weight 131.542 kg Results CBC & Chem 7: 02/23/21 13:21 02/24/21 06:47 Labs: Abnormal Lab Results - Last 24 Hours (Table) 02/23/21 02/23/21 02/23/21 Range/Units 13:21 13:21 18:19 Hct 47.9 H (34.0-46.0) % RDW 16.0 H (11.5-15.5) % Neutrophils # 8.8 H (1.3-7.7) k/uL Lymphocytes # 0.8 L (1.0-4.8) k/uL Chloride 109 H (98-107) mmol/L Carbon Dioxide (22-30) mmol/L POC Glucose (mg/dL) 109 H (75-99) mg/dL C-Reactive Protein 3.1 H (<1.0) mg/dL 02/24/21 02/24/21 Range/Units 06:47 12:20 Hct (34.0-46.0) % RDW (11.5-15.5) % Neutrophils # (1.3-7.7) k/uL Lymphocytes # (1.0-4.8) k/uL Chloride 112 H (98-107) mmol/L Carbon Dioxide 21 L (22-30) mmol/L POC Glucose (mg/dL) 109 H (75-99) mg/dL C-Reactive Protein (<1.0) mg/dL Microbiology - Last 24 Hours (Table) 02/24/21 03:10 Wound Culture - Preliminary Breast - Left 02/24/21 03:10 Anaerobic Culture - Preliminary Breast - Left Assessment and Plan (1) Non-pressure chronic ulcer of skin of other sites with fat layer exposed Current Visit: Yes Status: Acute Code(s): L98.492 - NON-PRS CHRONIC ULCER OF SKIN OF SITES W FAT LAYER EXPOSED SNOMED Code(s): 15089549 (2) Diabetic skin ulcer Current Visit: Yes Status: Acute Code(s): E11.622 - TYPE 2 DIABETES MELLITUS WITH OTHER SKIN ULCER; L98.499 - NON-PRESSURE CHRONIC ULCER OF SKIN OF SITES W UNSP SEVERITY SNOMED Code(s): 239259490 (3) Obesity Current Visit: Yes Status: Acute Code(s): E66.9 - OBESITY, UNSPECIFIED SNOMED Code(s): 311083175 (4) Necrotizing fasciitis Current Visit: Yes Status: Acute Code(s): M72.6 - NECROTIZING FASCIITIS SNOMED Code(s): 83125953 (5) Cellulitis of breast Current Visit: Yes Status: Acute Code(s): N61.0 - MASTITIS WITHOUT ABSCESS SNOMED Code(s): 82565964
[2021-02-24] MEDS: SODIUM CHLORIDE 0.9% 1,000 ML IV SCH (15:53)
--- NOTE | 2021-02-24 17:08 | P.PN ---
Subjective Progress Note Date: 02/24/21 Chief Complaint: Breasts cellulitis 65-year-old morbidly obese female with past medical history of cardiomyopathy, congestive heart failure, type 2 diabetes, hyperlipidemia, possible obstructive sleep apnea who had previous history of abscess who presented to the emergency department at [facility] . Patient also remembers aving similar episode a few years ago of the right side ended up with sepsis and infection spread to the lower abdominal area ended up having to have a wound care and wound VAC with IV antibiotic for long time. Patient admitted in July 2020 necrotic tissue as necrotizing fasciitis involving the left axilla, for which she is transferred to [facility] after failure of a local I&D of the abscess, by Dr. Olson and IV antibiotics.. 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 Patient now comes into the emergency room secondary to concerns of left breast infection which has changed 3 days prior to admission. She has had the original wound since July 2020, for which she had 14 surgeries at [facility], currently has been managed with a wound VAC since July 2020. She has history of drug resistant bacteria, for which she has had wound VAC on the left breast, she is being managed by home care nurse, and wound care clinic Dr. Powell Every Tuesday. Labs show CRP of 3.1, CBC is within normal limits, she is noted to have severe cellulitic infections, requiring surgical intervention, previous culture in July 2020, shows Enterococcus faecalis, sensitive to vancomycin and quinolone's resistant to tetracycline and erythromycin and gentamicin. 02/24: Patient's redness in the breast is still the same, however she has less pain, the wound VAC is discontinued, and no packing placed, it's dry gaping wound of approximately 2 cm x 1 cm, and is deep, they are going to attempt to get cultures from this today, Dr. yS from infectious disease is following the patient, patient denies any nausea vomiting no diarrhea, vital cell K, no fever, Review of Systems Constitutional: Reports as per HPI, Reports anorexia, Reports chills, Reports malaise, Denies chronic headaches, Denies chronic pain, Denies daytime sleepiness, Denies fatigue, Denies fever, Denies lethargy, Denies night sweats, Denies poor appetite, Denies sweats, Denies weakness, Denies weight gain, Denies weight loss Cardiovascular: Reports as per HPI, Denies chest pain, Denies claudication, Denies decreased exercise tolerance, Denies dyspnea on exertion, Denies edema, Denies high blood pressure, Denies irregular heart beat, Denies leg edema, Denies lightheadedness, Denies orthopnea, Denies palpitations, Denies paroxysmal nocturnal dyspnea, Denies phlebitis, Denies rapid heart beat, Denies shortness of breath, Denies syncope Respiratory: Reports as per HPI, Denies congestion, Denies cough, Denies cough with sputum, Denies dyspnea, Denies excessive sputum, Denies hemoptysis, Denies home oxygen, Denies pain, Denies pain on inspiration, Denies pleurisy, Denies respiratory infections, Denies sleep apnea, Denies snoring, Denies wheezing Gastrointestinal: Reports as per HPI, Denies abdominal pain, Denies belching, Denies bloating, Denies BRBPR, Denies change in bowel habits, Denies coffee ground emesis, Denies constipation, Denies diarrhea, Denies dyspepsia, Denies early satiety, Denies excessive gas, Denies heartburn, Denies hematemesis, Denies hematochezia, Denies indigestion, Denies jaundice, Denies lactose intolerance, Denies loss of appetite, Denies melena, Denies nausea, Denies vomiting Genitourinary: Reports as per HPI Menstruation: Reports as per HPI Musculoskeletal: Reports as per HPI, Denies frequent falls, Denies gait dysfunction, Denies hot joints, Denies limitation of motion Integumentary: Reports color changes, Reports rash, Reports wounds Neurological: Reports as per HPI, Denies aphasia, Denies ataxia, Denies balance difficulties, Denies burning pain, Denies change in mentation, Denies change in smell/taste, Denies change in speech, Denies confusion, Denies convulsions, Den ies double vision, Denies gait dysfunction, Denies head injury, Denies headaches, Denies hearing difficulties, Denies lack of coordination, Denies loss of vision, Denies memory loss, Denies migraines, Denies motor disturbance, Denies numbness, Denies paralysis, Denies paresthesias, Denies seizures, Denies sensory deficit, Denies spasticity, Denies syncope, Denies tic, Denies tingling, Denies transient paralysis, Denies tremors, Denies vertigo, Denies weakness, Denies visual changes Psychiatric: Reports as per HPI, Denies anhedonia, Denies anxiety, Denies anxiety attacks, Denies change in appetite, Denies change in libido, Denies change in sleep habits, Denies confusion, Denies depression, Denies difficulty concentrating, Denies disorientation, Denies hallucinations, Denies hopelessness, Denies hypersomnia, Denies insomnia, Denies irritability, Denies memory loss, Denies mood swings, Denies paranoia, Denies sadness/tearfulness, Denies sleep disturbances, Denies suicidal ideation Endocrine: Reports as per HPI Hematologic/Lymphatic: Reports as per HPI Allergic/Immunologic: Reports as per HPI, Denies allergic rhinitis, Denies anaphylaxis, Denies angioedema, Denies gluten intolerance, Denies persistent infections, Denies seasonal allergies, Denies urticaria, Denies wheezing Past Medical History Objective - Vital Signs Vital signs: Vital Signs Temp 98.3 F 02/24/21 14:00 Pulse 53 L 02/24/21 14:00 Resp 17 02/24/21 14:00 BP 107/55 02/24/21 14:00 Pulse Ox 97 02/24/21 14:00 Intake & Output 02/23/21 02/24/21 02/24/21 18:59 06:59 18:59 Intake Total 360 Balance 360 Weight 131.542 kg 131.542 kg Intake: Oral 360 Other: Voiding Method Toilet # Voids 2 - Constitutional General appearance: Present: cooperative, no acute distress - EENT Eyes: Present: EOMI, PERRLA, dentition normal, normal appearance ENT: Present: NA/AT, normal oropharynx - Neck Neck: Present: normal ROM - Respiratory Respiratory: bilateral: CTA, negative: diminished, dullness - Cardiovascular Rhythm: regular Heart sounds: normal: S1, S2 Abnormal Heart Sounds: Absent: systolic murmur, diastolic murmur, rub, S3 Gallop, S4 Gallop, click, other - Gastrointestinal General gastrointestinal: Present: normal bowel sounds - Integumentary Integumentary Comment(s): Left breast, without any duration, anti-breast is red and marked for monitoring, there is a gaping wound from a previous surgery, for wound VAC placement, measuring 2 cm x 1 cm, depth is unable to be determined. Integumentary: Present: calor, cellulitis - Neurologic Neurologic: Present: CNII-XII intact - Musculoskeletal Musculoskeletal: Present: gait normal, strength equal bilaterally - Psychiatric Psychiatric: Present: A&O x's 3, appropriate affect - Labs CBC & Chem 7: 02/23/21 13:21 02/24/21 06:47 Labs: Abnormal Lab Results - Last 24 Hours (Table) 02/23/21 02/24/21 02/24/21 Range/Units 18:19 06:47 12:20 Chloride 112 H (98-107) mmol/L Carbon Dioxide 21 L (22-30) mmol/L POC Glucose (mg/dL) 109 H 109 H (75-99) mg/dL Microbiology - Last 24 Hours (Table) 02/24/21 03:10 Wound Culture - Preliminary Breast - Left 02/24/21 03:10 Anaerobic Culture - Preliminary Breast - Left
[2021-02-24 17:32] LABS: Glucose,Whole Blood 124 mg/dL (75-99)
[2021-02-24 19:46] LABS: Glucose,Whole Blood 136 mg/dL (75-99)
[2021-02-24] MEDS: ATORVASTATIN 40 MG TAB PO SCH (21:19)
[2021-02-24] MEDS: INSULIN DETEMIR (LEVEMIR) 100 UNIT/ML SYR SQ SCH (21:20)
--- NOTE | 2021-02-24 22:56 | P.CONS ---
History of Present Illness - Reason for Consult Consult date: 02/24/21 left breast cellulitis Requesting physician: Marilu Fan - Chief Complaint left breast swelling and redness x 2 days - History of Present Illness History of present illness : Patient is 66-year-old female with a past medical history difficult for electrolytes infection to the left upper extremity requiring multiple surgeries started with the left breast abscess in this patient left arm wound is currently healed and she did have a nonhealing wound to the left breast area for the patient is currently being treated at [facility] [place] with a wound VAC patient presented to the [facility] ER with concern for left breast swelling and redness that has started a day or 2 before presentation the hospital patient did have mild dull aching pain to the left breast intensities 3-4 10 no radiation patient did have some chills but denies high-grade fever on presentation the hospital the patient was afebrile patient did have a normal white count with mild left shift local culture was obtained and she was started on vancomycin apparently the patient developed some itching however no rash vancomycin was discontinued infectious disease was consulted for further management previous culture positive for Enterococcus faecalis which was penicillin sensitive Review of system: Positive point has been mentioned in HPI rest of the systems are negative Past medical history : Reviewed, documented below Past surgical history : Reviewed, documented below Social history: Reviewed, documented below Medications: Reviewed, as documented below GENERAL DESCRIPTION: Elderly female lying in bed, no distress. No tachypnea or accessory muscle of respiration use. HEENT: Shows Pallor , no scleral icterus. Oral mucous membrane is dry. NECK: Trachea central, no thyromegaly. LUNGS: Unlabored breathing. Clear to auscultation anteriorly. No wheeze or crac kle. HEART: S1, S2, regular rate and rhythm. ABDOMEN: Soft, no tenderness , guarding or rigidity EXTREMITIES: No edema of feet. SKIN: No rash, no masses palpable. Left breast erythema slightly warm to touch no induration no drainage NEUROLOGICAL: The patient is awake, alert, oriented x3, mood and affect normal. LABS AND RADIOLOGY: Reviewed results see below Assessment : Patient with left breast cellulitis in this patient who do have a chronic nonhealing wound to the left lateral breast area more likely the focus of this infection previous cultures were positive for Enterococcus could be Ent erococcus or other gram-positive skin jeronimo clinically behaving as an MRSA infection Plan: 1-discontinue meropenem 2-Unasyn 3 g every 6 hours 3-local wound care with the dry Aquacel silver dressing to change every 48 hour We will follow on clinical condition and cultures to further adjust medication if needed Thank you for this consultation we will follow the patient along with you Past Medical History Past Medical History: Heart Failure, COPD, Diabetes Mellitus, Eye Disorder, Hearing Disorder / Deafness, Hypertension, Musculoskeletal Disorder, Osteo arthritis (OA) Additional Past Medical History / Comment(s): deaf R ear; partially blind R eye, left breast infection. fell at home in november 2020. fx right femur. 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 wound vac on since end september 2020 to november 19. sees wound care centre every tuesday.then reapplied wound vac on december 2020. Jul 2020 had a boil and it broke and obtained a abscess. sent to [facility]. had 13 surgeries total. Past Anesthesia/Blood Transfusion Reactions: No Reported Reaction Past Psychological History: Anxiety, Panic Disorder Smoking Status: Current every day smoker Past Alcohol Use History: Occasional Additional Past Alcohol Use History / Comment(s): smokes one pack daily Past Drug Use History: None Reported - Past Family History Brother(s) Family Medical History: Cancer Mother Family Medical History: Coronary Artery Disease (CAD), Diabetes Mellitus Medications and Allergies Home Medications Medication Instructions Recorded Confirmed Type Beclomethasone Dipropionate [Qvar 2 puff INHALATION RT-BID 08/19/14 02/23/21 History 40 mcg/puff] Furosemide [Lasix] 40 mg PO BID 08/19/14 02/23/21 History carvediloL [Coreg] 6.25 mg PO BID 08/19/14 02/23/21 History Aspirin 81 mg PO DAILY 07/16/20 02/23/21 History Atorvastatin [Lipitor] 40 mg PO HS 07/16/20 02/23/21 History metFORMIN HCL [Glucophage] 1,000 mg PO BID 07/16/20 02/23/21 History Gabapentin [Neurontin] 400 mg PO BID 11/12/20 02/23/21 History Insulin Glargine,Hum.rec.anlog 32 unit SQ 11/12/20 02/23/21 History [Lantus Solostar] methocarbamoL [Methocarbamol] 500 mg PO BID 11/12/20 02/23/21 History Folic Acid 0.4 mg PO DAILY 02/23/21 02/23/21 History Sennosides/Docusate Sodium [Senna 1 tab PO DAILY 02/23/21 02/23/21 History Plus 8.6-50 mg Tablet] Allergies Allergy/AdvReac Type Severity Reaction Status Date / Time strawberry Allergy Intermediate Rash/Hives Verified 02/23/21 13:34 Physical Exam Vitals: Vital Signs Temp Pulse Pulse Resp BP BP Pulse Ox 02/24/21 08:00 97.6 F 54 L 16 106/59 91 L 02/24/21 01:43 98.3 F 61 18 110/53 93 L 02/23/21 20:13 97.9 F 67 19 108/68 93 L 02/23/21 20:08 98.2 F 71 18 106/67 96 02/23/21 16:55 70 18 131/97 98 02/23/21 12:21 98.3 F 72 18 115/68 96 Intake and Output 02/23/21 02/24/21 02/24/21 22:59 06:59 14:59 Intake Total 180 Balance 180 Intake: Oral 180 Other: Voiding Method Toilet # Voids 2 Weight 131.542 kg Results CBC & Chem 7: 02/23/21 13:21 02/24/21 06:47 Labs: Abnormal Lab Results - Last 24 Hours (Table) 02/23/21 02/23/21 02/23/21 Range/Units 13:21 13:21 18:19 Hct 47.9 H (34.0-46.0) % RDW 16.0 H (11.5-15.5) % Neutrophils # 8.8 H (1.3-7.7) k/uL Lymphocytes # 0.8 L (1.0-4.8) k/uL Chloride 109 H (98-107) mmol/L Carbon Dioxide (22-30) mmol/L POC Glucose (mg/dL) 109 H (75-99) mg/dL C-Reactive Protein 3.1 H (<1.0) mg/dL 02/24/21 Range/Units 06:47 Hct (34.0-46.0) % RDW (11.5-15.5) % Neutrophils # (1.3-7.7) k/uL Lymphocytes # (1.0-4.8) k/uL Chloride 112 H (98-107) mmol/L Carbon Dioxide 21 L (22-30) mmol/L POC Glucose (mg/dL) (75-99) mg/dL C-Reactive Protein (<1.0) mg/dL Microbiology - Last 24 Hours (Table) 02/24/21 03:10 Wound Culture - Preliminary Breast - Left 02/24/21 03:10 Anaerobic Culture - Preliminary Breast - Left
[2021-02-25] MEDS: AMPICILLIN-SULBACTAM 3 GM in SODIUM CHLORIDE 0.9% 100 ML IVPB SCH ×5 (00:30→23:26)
[2021-02-25 07:18] LABS: Glucose,Whole Blood 79 mg/dL (75-99)
[2021-02-25] MEDS: INSULIN ASPART (NovoLOG) 100 UNIT/ML VIAL SQ SCH ×4 (08:43→22:53)
[2021-02-25] MEDS: GABAPENTIN 400 MG CAP PO SCH ×2 (08:43→22:52)
[2021-02-25] MEDS: methocarbamoL 500 MG TAB PO SCH ×2 (08:44→22:51)
[2021-02-25] MEDS: ENOXAPARIN 40 MG/0.4 ML SYRINGE SQ SCH (08:44)
[2021-02-25] MEDS: SENNOSIDES-DOCUSATE SODIUM 1 EACH TAB PO SCH (08:44)
[2021-02-25] MEDS: FOLIC ACID 1 MG TAB PO SCH (08:44)
[2021-02-25] MEDS: ASPIRIN 81 MG PO SCH (08:44)
[2021-02-25] MEDS: metFORMIN 500 MG TAB PO SCH ×2 (08:45→22:52)
[2021-02-25] MEDS: FAMOTIDINE 20 MG TAB PO SCH ×2 (08:45→22:52)
[2021-02-25] MEDS: FUROSEMIDE 40 MG TAB PO SCH ×2 (08:46→16:36)
[2021-02-25] MEDS: ACETAMINOPHEN TAB 325 MG TAB PO PRN ×2 (08:46→16:36)
[2021-02-25] MEDS: FLUTICASONE 44 MCG INHALER INHALATION SCH ×2 (09:05→20:56)
--- NOTE | 2021-02-25 11:30 | P.PN ---
Subjective Progress Note Date: 02/25/21 Chief Complaint: Breasts cellulitis 65-year-old morbidly obese female with past medical history of cardiomyopathy, congestive heart failure, type 2 diabetes, hyperlipidemia, possible obstructive sleep apnea who had previous history of abscess who presented to the emergency department at [facility] . Patient also remembers aving similar episode a few years ago of the right side ended up with sepsis and infection spread to the lower abdominal area ended up having to have a wound care and wound VAC with IV antibiotic for long time. Patient admitted in July 2020 necrotic tissue as necrotizing fasciitis involving the left axilla, for which she is transferred to [facility] after failure of a local I&D of the abscess, by Dr. Olson and IV antibiotics.. 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 Patient now comes into the emergency room secondary to concerns of left breast infection which has changed 3 days prior to admission. She has had the original wound since July 2020, for which she had 14 surgeries at [facility], currently has been managed with a wound VAC since July 2020. She has history of drug resistant bacteria, for which she has had wound VAC on the left breast, she is being managed by home care nurse, and wound care clinic Dr. Powell Every Tuesday. Labs show CRP of 3.1, CBC is within normal limits, she is noted to have severe cellulitic infections, requiring surgical intervention, previous culture in July 2020, shows Enterococcus faecalis, sensitive to vancomycin and quinolone's resistant to tetracycline and erythromycin and gentamicin. 02/24: Patient's redness in the breast is still the same, however she has less pain, the wound VAC is discontinued, and no packing placed, it's dry gaping wound of approximately 2 cm x 1 cm, and is deep, they are going to attempt to get cultures from this today, Dr. Sy from infectious disease is following the patient, patient denies any nausea vomiting no diarrhea, vital cell K, no fever, 02/25: Patient is doing much better, has significant improvement from redness, no pain this time, ambulating without any difficulties, no lightheadedness of diarrhea, o midline was placed today, awaiting final antibiotic recommendation from Dr. Sy, most likely to be discharged in the next 24 hours pending location for antibiotic infusion Review of Systems Constitutional: Reports as per HPI, Reports anorexia, Reports chills, Reports m alaise, Denies chronic headaches, Denies chronic pain, Denies daytime sleepiness, Denies fatigue, Denies fever, Denies lethargy, Denies night sweats, Denies poor appetite, Denies sweats, Denies weakness, Denies weight gain, Denies weight loss Cardiovascular: Reports as per HPI, Denies chest pain, Denies claudication, Denies decreased exercise tolerance, Denies dyspnea on exertion, Denies edema, Denies high blood pressure, Denies irregular heart beat, Denies leg edema, De nies lightheadedness, Denies orthopnea, Denies palpitations, Denies paroxysmal nocturnal dyspnea, Denies phlebitis, Denies rapid heart beat, Denies shortness of breath, Denies syncope Respiratory: Reports as per HPI, Denies congestion, Denies cough, Denies cough with sputum, Denies dyspnea, Denies excessive sputum, Denies hemoptysis, Denies home oxygen, Denies pain, Denies pain on inspiration, Denies pleurisy, Denies respiratory infections, Denies sleep apnea, Denies snoring, Denies wheezing Gastrointestinal: Reports as per HPI, Denies abdominal pain, Denies belching, Denies bloating, Denies BRBPR, Denies change in bowel habits, Denies coffee ground emesis, Denies constipation, Denies diarrhea, Denies dyspepsia, Denies early satiety, Denies excessive gas, Denies heartburn, Denies hematemesis, Denies hematochezia, Denies indigestion, Denies jaundice, Denies lactose intolerance, Denies loss of appetite, Denies melena, Denies nausea, Denies vomiting Genitourinary: Reports as per HPI Menstruation: Reports as per HPI Musculoskeletal: Reports as per HPI, Denies frequent falls, Denies gait dysfunction, Denies hot joints, Denies limitation of motion Integumentary: Reports color changes, Reports rash, Reports wounds Neurological: Reports as per HPI, Denies aphasia, Denies ataxia, Denies balance difficulties, Denies burning pain, Denies change in mentation, Denies change in smell/taste, Denies change in speech, Denies confusion, Denies convulsions, Denies double vision, Denies gait dysfunction, Denies head injury, Denies headaches, Denies hearing difficulties, Denies lack of coordination, Denies loss of vision, Denies memory loss, Denies migraines, Denies motor disturbance, Denies numbness, Denies paralysis, Denies paresthesias, Denies seizures, Denies sensory deficit, Denies spasticity, Denies syncope, Denies tic, Denies tingling, Denies transient paralysis, Denies tremors, Denies vertigo, Denies weakness, Denies visual changes Psychiatric: Reports as per HPI, Denies anhedonia, Denies anxiety, Denies anxiety attacks, Denies change in appetite, Denies change in libido, Denies change in sleep habits, Denies confusion, Denies depression, Denies difficulty concentrating, Denies disorientation, Denies hallucinations, Denies hopelessness, Denies hypersomnia, Denies insomnia, Denies irritability, Denies memory loss, Denies mood swings, Denies paranoia, Denies sadness/tearfulness, Denies sleep disturbances, Denies suicidal ideation Endocrine: Reports as per HPI Hematologic/Lymphatic: Reports as per HPI Allergic/Immunologic: Reports as per HPI, Denies allergic rhinitis, Denies anaphylaxis, Denies angioedema, Denies gluten intolerance, Denies persistent infections, Denies seasonal allergies, Denies urticaria, Denies wheezing Past Medical History Objective - Vital Signs Vital signs: Vital Signs Temp 97.3 F L 02/25/21 08:00 Pulse 55 L 02/25/21 08:00 Resp 16 02/25/21 08:00 BP 149/60 02/25/21 08:00 Pulse Ox 95 02/25/21 08:00 Intake & Output 02/24/21 02/25/21 02/25/21 18:59 06:59 18:59 Intake Total 360 180 Balance 360 180 Intake: Oral 360 180 Other: Voiding Method Toilet # Voids 1 - Constitutional General appearance: Present: cooperative, obese - EENT Eyes: Present: EOMI, PERRLA, normal appearance ENT: Present: NA/AT, normal oropharynx - Respiratory Respiratory: bilateral: CTA, negative: diminished, rales - Cardiovascular Rhythm: regular Heart sounds: normal: S1, S2 Abnormal Heart Sounds: Absent: systolic murmur, diastolic murmur, rub, S3 Gallop, S4 Gallop, click, other - Gastrointestinal General gastrointestinal: Present: normal bowel sounds, soft - Integumentary Integumentary Comment(s): Less redness, demarcation from the redness is improved. No infiltration, packed wound left outer breast area, from a previous wound VAC. Integumentary: Present: normal - Musculoskeletal Musculoskeletal: Present: gait normal, strength equal bilaterally - Psychiatric Psychiatric: Present: A&O x's 3, appropriate affect, intact judgment & insight - Labs CBC & Chem 7: 02/23/21 13:21 02/24/21 06:47 Labs: Abnormal Lab Results - Last 24 Hours (Table) 02/24/21 02/24/21 02/24/21 Range/Units 12:20 17:31 19:33 POC Glucose (mg/dL) 109 H 124 H 136 H (75-99) mg/dL Microbiology - Last 24 Hours (Table) 02/24/21 03:10 Gram Stain - Preliminary Breast - Left Wound Culture - Preliminary 02/23/21 15:10 Blood Culture - Preliminary Blood No Growth after 24 hours 02/23/21 15:05 Blood Culture - Preliminary Blood No Growth after 24 hours 02/24/21 03:10 Anaerobic Culture - Preliminary Breast - Left Assessment and Plan Plan: 1. Left breast cellulitis, with history of enterococcus multidrug resistance, patient currently is on IV vancomycin which is sensitive based on last culture July 2020, however she complained of redness, and itchiness on the IV site, hence it was discontinued . Meropenem 1 g every 8 hours was started instead. consult with Dr. Martínez infectious disease, no need for surgical drainage at this time based on clinical examination, cultures in the blood were obtained, the wound cultures accessible at this time we will try to obtain one. Midline place [id number], pending wound cultures today IV antibiotic per , disability case manager for infusion location 2. COPD with current tobacco use, without any exacerbation, continue meds from home Flovent 44, 3 Diabetes mellitus type 2, check for A1c, On Levemir 32 units at bedtime, NovoLog scale, patient is on metformin 4. History of significant skin infections in the past, with resulting necrotizing fasciitis in the left axilla, check for IgG a G and E levels, and immunofixation, need evaluate for immunodeficiency, 5. Rash and itching related to vancomycin, we are going to discontinue the vancomycin at this time, and start meropenem, 1 g every 8 hours. Infectious disease for antibiotic management 6. Hyperlipidemia, on Lipitor 40 mg at bedtime 7. GI prophylaxis and DVT prophylaxis Pepcid, and Lovenox Admission, required 2 nights or more, for antibiotic management cultures blood and wound
[2021-02-25 12:46] LABS: Glucose,Whole Blood 80 mg/dL (75-99)
[2021-02-25] MEDS: carvediloL 6.25 MG TAB PO SCH ×3 (13:19→22:52)
[2021-02-25] MEDS: SODIUM CHLORIDE 0.9% 1,000 ML IV SCH (14:43)
[2021-02-25 14:54] LABS: Immunoglobulin M 48.8 mg/dL (40.0-280.0)
--- NOTE | 2021-02-25 16:58 | PN ---
PROGRESS NOTE DATE OF SERVICE: 02/25/2021 REASON FOR FOLLOWUP: Left wound with cellulitis. INTERVAL HISTORY: The patient is afebrile. The patient is slightly IV for the antibiotics. foot and no chest pain, shortness of breath or cough. No abdominal pain or diarrhea. PHYSICAL EXAMINATION: On examination, blood pressure is 149/60 with a pulse of 55, temperature 97.6. She is 95% on room air. GENERAL DESCRIPTION: General description is an elderly female lying in bed in no distress. RESPIRATORY SYSTEM: Unlabored breathing. Clear to auscultation anteriorly. HEART: S1, S2. Regular rate and rhythm. ABDOMEN: Soft. No tenderness. Left breast swelling and redness slightly decreased. LABS: Wound culture is currently pending. DIAGNOSTIC IMPRESSION AND PLAN: Patient with left breast cellulitis in this patient who did have a chronic nonhealing wound to the left breast area. Patient at this time to continue with IV Unasyn with discharge antibiotics depending upon the culture report. Continue with supportive care. MMODL / IJN: [id number] /
[2021-02-25 17:27] LABS: Glucose,Whole Blood 88 mg/dL (75-99)
[2021-02-25 20:27] LABS: Glucose,Whole Blood 171 mg/dL (75-99)
[2021-02-25] MEDS: ATORVASTATIN 40 MG TAB PO SCH (22:52)
[2021-02-25] MEDS: INSULIN DETEMIR (LEVEMIR) 100 UNIT/ML SYR SQ SCH (22:53)
[2021-02-25 22:57] LABS: Glucose,Whole Blood 110 mg/dL (75-99)
[2021-02-26] MEDS: AMPICILLIN-SULBACTAM 3 GM in SODIUM CHLORIDE 0.9% 100 ML IVPB SCH ×3 (06:20→17:03)
[2021-02-26 07:09] LABS: Glucose,Whole Blood 89 mg/dL (75-99)
[2021-02-26] MEDS: FLUTICASONE 44 MCG INHALER INHALATION SCH ×2 (08:07→20:05)
[2021-02-26] MEDS: INSULIN ASPART (NovoLOG) 100 UNIT/ML VIAL SQ SCH ×4 (10:18→22:38)
[2021-02-26] MEDS: SENNOSIDES-DOCUSATE SODIUM 1 EACH TAB PO SCH (10:19)
[2021-02-26] MEDS: FUROSEMIDE 40 MG TAB PO SCH ×2 (10:19→17:01)
[2021-02-26] MEDS: FOLIC ACID 1 MG TAB PO SCH (10:19)
[2021-02-26] MEDS: ASPIRIN 81 MG PO SCH (10:20)
[2021-02-26] MEDS: ACETAMINOPHEN TAB 325 MG TAB PO PRN ×2 (10:20→16:59)
[2021-02-26] MEDS: methocarbamoL 500 MG TAB PO SCH (10:20)
[2021-02-26] MEDS: FAMOTIDINE 20 MG TAB PO SCH ×2 (10:21→22:38)
[2021-02-26] MEDS: metFORMIN 500 MG TAB PO SCH ×2 (10:21→22:38)
[2021-02-26] MEDS: GABAPENTIN 400 MG CAP PO SCH ×2 (10:21→22:38)
[2021-02-26] MEDS: ENOXAPARIN 40 MG/0.4 ML SYRINGE SQ SCH (10:22)
--- NOTE | 2021-02-26 10:49 | P.PN ---
Subjective Progress Note Date: 02/26/21 Chief Complaint: Breasts cellulitis 65-year-old morbidly obese female with past medical history of cardiomyopathy, congestive heart failure, type 2 diabetes, hyperlipidemia, possible obstructive sleep apnea who had previous history of abscess who presented to the emergency department at [facility] . Patient also remembers aving similar episode a few years ago of the right side ended up with sepsis and infection spread to the lower abdominal area ended up having to have a wound care and wound VAC with IV antibiotic for long time. Patient admitted in July 2020 necrotic tissue as necrotizing fasciitis involving the left axilla, for which she is transferred to [facility] after failure of a local I&D of the abscess, by Dr. Olson and IV antibiotics.. 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 Patient now comes into the emergency room secondary to concerns of left breast infection which has changed 3 days prior to admission. She has had the original wound since July 2020, for which she had 14 surgeries at [facility], currently has been managed with a wound VAC since July 2020. She has history of drug resistant bacteria, for which she has had wound VAC on the left breast, she is being managed by home care nurse, and wound care clinic Dr. Powell Every Tuesday. Labs show CRP of 3.1, CBC is within normal limits, she is noted to have severe cellulitic infections, requiring surgical intervention, previous culture in July 2020, shows Enterococcus faecalis, sensitive to vancomycin and quinolone's resistant to tetracycline and erythromycin and gentamicin. 02/24: Patient's redness in the breast is still the same, however she has less pain, the wound VAC is discontinued, and no packing placed, it's dry gaping wound of approximately 2 cm x 1 cm, and is deep, they are going to attempt to get cultures from this today, Dr. Sy from infectious disease is following the patient, patient denies any nausea vomiting no diarrhea, vital cell K, no fever, 02/25: Patient is doing much better, has significant improvement from redness, no pain this time, ambulating without any difficulties, no lightheadedness of diarrhea, o midline was placed today, awaiting final antibiotic recommendation from Dr. Sy, most likely to be discharged in the next 24 hours pending location for antibiotic infusion 02/26: Patient's doing much better, anticipating to be discharged, patient has no nausea no vomiting or diarrhea, cultures are currently pending, wound is okay, still with packing, blood cultures are not chipped released from these admissi ons culture, Dr. Sy once on IV Unasyn, by mouth finalized culture report, anticipate discharge within the next 24-48 hours. Midline is infusing well Review of Systems Constitutional: Reports as per HPI, Reports anorexia, Reports chills, Reports malaise, Denies chronic headaches, Denies chronic pain, Denies daytime sleepiness, Denies fatigue, Denies fever, Denies lethargy, Denies night sweats, Denies poor appetite, Denies sweats, Denies weakness, Denies weight gain, Denies weight loss Cardiovascular: Reports as per HPI, Denies chest pain, Denies claudication, Denies decreased exercise tolerance, Denies dyspnea on exertion, Denies edema, Denies high blood pressure, Denies irregular heart beat, Denies leg edema, Denies lightheadedness, Denies orthopnea, Denies palpitations, Denies paroxysmal nocturnal dyspnea, Denies phlebitis, Denies rapid heart beat, Denies shortness of breath, Denies syncope Respiratory: Reports as per HPI, Denies congestion, Denies cough, Denies cough with sputum, Denies dyspnea, Denies excessive sputum, Denies hemoptysis, Denies home oxygen, Denies pain, Denies pain on inspiration, Denies pleurisy, Denies respiratory infections, Denies sleep apnea, Denies snoring, Denies wheezing Gastrointestinal: Reports as per HPI, Denies abdominal pain, Denies belching, Denies bloating, Denies BRBPR, Denies change in bowel habits, Denies coffee ground emesis, Denies constipation, Denies diarrhea, Denies dyspepsia, Denies early satiety, Denies excessive gas, Denies heartburn, Denies hematemesis, Denies hematochezia, Denies indigestion, Denies jaundice, Denies lactose intolerance, Denies loss of appetite, Denies melena, Denies nausea, Denies vomiting Genitourinary: Reports as per HPI Menstruation: Reports as per HPI Musculoskeletal: Reports as per HPI, Denies frequent falls, Denies gait dysfunction, Denies hot joints, Denies limitation of motion Integumentary: Reports color changes, Reports rash, Reports wounds Neurological: Reports as per HPI, Denies aphasia, Denies ataxia, Denies balance difficulties, Denies burning pain, Denies change in mentation, Denies change in smell/taste, Denies change in speech, Denies confusion, Denies convulsions, Denies double vision, Denies gait dysfunction, Denies head injury, Denies headaches, Denies hearing difficulties, Denies lack of coordination, Denies loss of vision, Denies memory loss, Denies migraines, Denies motor disturbance, Denies numbness, Denies paralysis, Denies paresthesias, Denies seizures, Denies sensory deficit, Denies spasticity, Denies syncope, Denies tic, Denies tingling, Denies transient paralysis, Denies tremors, Denies vertigo, Denies weakness, Denies visual changes Psychiatric: Reports as per HPI, Denies anhedonia, Denies anxiety, Denies anxiety attacks, Denies change in appetite, Denies change in libido, Denies change in sleep habits, Denies confusion, Denies depression, Denies difficulty concentrating, Denies disorientation, Denies hallucinations, Denies hopelessness, Denies hypersomnia, Denies insomnia, Denies irritability, Denies memory loss, Denies mood swings, Denies paranoia, Denies sadness/tearfulness, Denies sleep disturbances, Denies suicidal ideation Endocrine: Reports as per HPI Hematologic/Lymphatic: Reports as per HPI Allergic/Immunologic: Reports as per HPI, Denies allergic rhinitis, Denies anaphylaxis, Denies angioedema, Denies gluten intolerance, Denies persistent infections, Denies seasonal allergies, Denies urticaria, Denies wheezing Past Medical History Objective - Vital Signs Vital signs: Vital Signs Temp 92.8 F L 02/26/21 08:00 Pulse 60 02/26/21 08:00 Resp 18 02/26/21 08:00 BP 117/70 02/26/21 08:00 Pulse Ox 97 02/26/21 08:00 Intake & Output 02/25/21 02/26/21 02/26/21 18:59 06:59 18:59 Intake Total 582 Balance 582 Intake: Oral 582 Other: Voiding Method Toilet Toilet # Voids 2 1 - Constitutional General appearance: Present: cooperative, no acute distress - EENT Eyes: Present: EOMI, PERRLA, normal appearance - Neck Neck: Present: normal ROM - Respiratory Respiratory: bilateral: CTA, negative: diminished, dullness, rales, wheezing - Cardiovascular Rhythm: regular Heart sounds: normal: S1, S2 Abnormal Heart Sounds: Absent: systolic murmur, diastolic murmur, rub, S3 Gallop, S4 Gallop, click, other - Gastrointestinal General gastrointestinal: Present: normal bowel sounds, soft - Integumentary Integumentary: Present: decreased turgor, normal - Neurologic Neurologic: Present: CNII-XII intact - Psychiatric Psychiatric: Present: A&O x's 3, appropriate affect - Labs CBC & Chem 7: 02/23/21 13:21 02/24/21 06:47 Labs: Abnormal Lab Results - Last 24 Hours (Table) 02/23/21 02/25/21 02/25/21 Range/Units 13:21 20:26 22:51 POC Glucose (mg/dL) 171 H 110 H (75-99) mg/dL IgG 1940.0 H (700.0-1600.0) mg/dL Microbiology - Last 24 Hours (Table) 02/24/21 03:10 Gram Stain - Final Breast - Left Wound Culture - Final Beta Hemolytic Strep Group C 02/23/21 15:10 Blood Culture - Preliminary Blood No Growth after 48 hours 02/23/21 15:05 Blood Culture - Preliminary Blood No Growth after 48 hours Assessment and Plan Plan: 1. Left breast cellulitis, with history of enterococcus multidrug resistance, patient currently is on IV vancomycin which is sensitive based on last culture July 2020, however she complained of redness, and itchiness on the IV site, hence it was discontinued . Meropenem 1 g every 8 hours was started instead. consult with Dr. Mratínez infectious disease, no need for surgical drainage at this time based on clinical examination, cultures in the blood were obtained, the wound cultures accessible at this time we will try to obtain one. Midline place [phone], pending wound cultures today IV antibiotic per , manager of case for infusion location 2. COPD with current tobacco use, without any exacerbation, continue meds from home Flovent 44, 3 Diabetes mellitus type 2, check for A1c, On Levemir 32 units at bedtime, Nov oLog scale, patient is on metformin 4. History of significant skin infections in the past, with resulting necrotizing fasciitis in the left axilla, check for IgG a G and E levels, and immunofixation, need evaluate for immunodeficiency, 5. Rash and itching related to vancomycin, we are going to discontinue the vancomycin at this time, and start meropenem, 1 g every 8 hours. Infectious disease for antibiotic management 6. Hyperlipidemia, on Lipitor 40 mg at bedtime 7. GI prophylaxis and DVT prophylaxis Pepcid, and Lovenox Admission, required 2 nights or more, for antibiotic management cultures blood and wound
[2021-02-26 12:07] LABS: Glucose,Whole Blood 101 mg/dL (75-99)
[2021-02-26 15:08] VITALS: BMI 45.4
[2021-02-26] MEDS: SODIUM CHLORIDE 0.9% 1,000 ML IV SCH (17:02)
[2021-02-26] MEDS: carvediloL 6.25 MG TAB PO SCH (17:02)
[2021-02-26 17:28] LABS: Glucose,Whole Blood 104 mg/dL (75-99)
--- NOTE | 2021-02-26 19:11 | PN ---
PROGRESS NOTE DATE OF SERVICE: 02/26/2021 REASON FOR FOLLOWUP: Left breast wound and cellulitis. INTERVAL HISTORY: The patient is afebrile. The patient is feeling better. Breathing comfortably. Left breast pain and swelling slightly decreased. Denies any chest pain. No shortness of breath, cough, no abdominal pain. No diarrhea. PHYSICAL EXAMINATION: Blood pressure 117/63 with pulse of 54, temperature 98. She is 97% on room air. General description is an elderly female lying in bed in bed in no distress. Respiratory system: Unlabored breathing, clear to auscultation anteriorly. Heart S1, S2. Regular rate and rhythm. Abdomen soft, no tenderness. Left breast swelling and redness minimally decreased. LABS: Local culture with strep. DIAGNOSTIC IMPRESSION AND PLAN: Patient with left breast cellulitis, wound culture with strep. The patient did have history of necrotizing infection. May consider short course of IV cefazolin 2 grams q.8 hours for about a week to 10 days and close outpatient followup. Local care with Aquacel Silver packing of the wound. MMODL / IJN: [id number] /
[2021-02-26 21:56] LABS: Glucose,Whole Blood 112 mg/dL (75-99)
[2021-02-26] MEDS: ATORVASTATIN 40 MG TAB PO SCH (22:38)
[2021-02-26] MEDS: INSULIN DETEMIR (LEVEMIR) 100 UNIT/ML SYR SQ SCH (22:39)
[2021-02-27] MEDS: AMPICILLIN-SULBACTAM 3 GM in SODIUM CHLORIDE 0.9% 100 ML IVPB SCH ×3 (00:40→12:02)
[2021-02-27] MEDS: methocarbamoL 500 MG TAB PO SCH ×2 (00:40→08:48)
[2021-02-27] MEDS: FLUTICASONE 44 MCG INHALER INHALATION SCH (07:12)
[2021-02-27 07:13] LABS: Glucose,Whole Blood 94 mg/dL (75-99)
[2021-02-27] MEDS: INSULIN ASPART (NovoLOG) 100 UNIT/ML VIAL SQ SCH ×2 (07:21→12:03)
[2021-02-27 08:09] VITALS: RESP 18
[2021-02-27] MEDS: ASPIRIN 81 MG PO SCH (08:46)
[2021-02-27] MEDS: FUROSEMIDE 40 MG TAB PO SCH (08:46)
[2021-02-27] MEDS: FAMOTIDINE 20 MG TAB PO SCH (08:46)
[2021-02-27] MEDS: SENNOSIDES-DOCUSATE SODIUM 1 EACH TAB PO SCH (08:46)
[2021-02-27] MEDS: FOLIC ACID 1 MG TAB PO SCH (08:46)
[2021-02-27] MEDS: GABAPENTIN 400 MG CAP PO SCH (08:46)
[2021-02-27] MEDS: carvediloL 6.25 MG TAB PO SCH (08:46)
[2021-02-27] MEDS: ENOXAPARIN 40 MG/0.4 ML SYRINGE SQ SCH (08:46)
[2021-02-27] MEDS: metFORMIN 500 MG TAB PO SCH (08:47)
--- NOTE | 2021-02-27 10:44 | P.DS ---
Providers Date of admission: 02/23/21 14:22 Attending physician: Marilu Fan Consults: 02/23/21 14:25 Consult Physician Routine Consulting Provider: Dago Martínez Consult Reason/Comments: breast cellulitis Do you want consulting provider notified?: Yes Primary care physician: [facility] Course: Chief Complaint: Breasts cellulitis 65-year-old morbidly obese female with past medical history of cardiomyopathy, congestive heart failure, type 2 diabetes, hyperlipidemia, possible obstructive sleep apnea who had previous history of abscess who presented to the emergency department at [facility] . Patient also remembers aving similar episode a few years ago of the right side ended up with sepsis and infection spread to the lower abdominal area ended up having to have a wound care and wound VAC with IV antibiotic for long time. Patient admitted in July 2020 necrotic tissue as necrotizing fasciitis involving the left axilla, for which she is transferred to [facility] after failure of a local I&D of the abscess, by Dr. Olson and IV antibiotics.. 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 Patient now comes into the emergency room secondary to concerns of left breast infection which has changed 3 days prior to admission. She has had the original wound since July 2020, for which she had 14 surgeries at [facility], currently has been managed with a wound VAC since July 2020. She has history of drug resistant bacteria, for which she has had wound VAC on the left breast, she is being managed by home care nurse, and wound care clinic Dr. Powell Every Tuesday. Labs show CRP of 3.1, CBC is within normal limits, she is noted to have severe cellulitic infections, requiring surgical intervention, previous culture in July 2020, shows Enterococcus faecalis, sensitive to vancomycin and quinolone's resistant to tetracycline and erythromycin and gentamicin. 02/24: Patient's redness in the breast is still the same, however she has less pain, the wound VAC is discontinued, and no packing placed, it's dry gaping wound of approximately 2 cm x 1 cm, and is deep, they are going to attempt to get cultures from this today, Dr. Sy from infectious disease is following the patient, patient denies any nausea vomiting no diarrhea, vital cell K, no fever, 8/18: Patient is doing much better, has significant improvement from redness, no pain this time, ambulating without any difficulties, no lightheadedness of diarrhea, o midline was placed today, awaiting final antibiotic recommendation from Dr. Sy, most likely to be discharged in the next 24 hours pending location for antibiotic infusion 02/26: Patient's doing much better, anticipating to be discharged, patient has no nausea no vomiting or diarrhea, cultures are currently pending, wound is okay, still with packing, blood cultures are not chipped released from these admissions culture, Dr. Sy once on IV Unasyn, by mouth finalized culture report, anticipate discharge within the next 24-48 hours. Midline is infusing well Review of Systems Constitutional: Reports as per HPI, Reports anorexia, Reports chills, Reports malaise, Denies chronic headaches, Denies chronic pain, Denies daytime sleepiness, Denies fatigue, Denies fever, Denies lethargy, Denies night sweats, Denies poor appetite, Denies sweats, Denies weakness, Denies weight gain, Denies weight loss Cardiovascular: Reports as per HPI, Denies chest pain, Denies claudication, Denies decreased exercise tolerance, Denies dyspnea on exertion, Denies edema, Denies high blood pressure, Denies irregular heart beat, Denies leg edema, Denies lightheadedness, Denies orthopnea, Denies palpitations, Denies paroxysmal nocturnal dyspnea, Denies phlebitis, Denies rapid heart beat, Denies shortness of breath, Denies syncope Respiratory: Reports as per HPI, Denies congestion, Denies cough, Denies cough with sputum, Denies dyspnea, Denies excessive sputum, Denies hemoptysis, Denies home oxygen, Denies pain, Denies pain on inspiration, Denies pleurisy, Denies respiratory infections, Denies sleep apnea, Denies snoring, Denies wheezing Gastrointestinal: Reports as per HPI, Denies abdominal pain, Denies belching, Denies bloating, Denies BRBPR, Denies change in bowel habits, Denies coffee ground emesis, Denies constipation, Denies diarrhea, Denies dyspepsia, Denies ea rly satiety, Denies excessive gas, Denies heartburn, Denies hematemesis, Denies hematochezia, Denies indigestion, Denies jaundice, Denies lactose intolerance, Denies loss of appetite, Denies melena, Denies nausea, Denies vomiting Genitourinary: Reports as per HPI Menstruation: Reports as per HPI Musculoskeletal: Reports as per HPI, Denies frequent falls, Denies gait dysfunction, Denies hot joints, Denies limitation of motion Integumentary: Reports color changes, Reports rash, Reports wounds Neurological: Reports as per HPI, Denies aphasia, Denies ataxia, Denies balance difficulties, Denies burning pain, Denies change in mentation, Denies change in smell/taste, Denies change in speech, Denies confusion, Denies convulsions, Denies double vision, Denies gait dysfunction, Denies head injury, Denies headaches, Denies hearing difficulties, Denies lack of coordination, Denies loss of vision, Denies memory loss, Denies migraines, Denies motor disturbance, Denies numbness, Denies paralysis, Denies paresthesias, Denies seizures, Denies sensory deficit, Denies spasticity, Denies syncope, Denies tic, Denies tingling, Denies transient paralysis, Denies tremors, Denies vertigo, Denies weakness, Denies visual changes Psychiatric: Reports as per HPI, Denies anhedonia, Denies anxiety, Denies anxiety attacks, Denies change in appetite, Denies change in libido, Denies change in sleep habits, Denies confusion, Denies depression, Denies difficulty concentrating, Denies disorientation, Denies hallucinations, Denies hopelessness, Denies hypersomnia, Denies insomnia, Denies irritability, Denies memory loss, Denies mood swings, Denies paranoia, Denies sadness/tearfulness, Denies sleep disturbances, Denies suicidal ideation Endocrine: Reports as per HPI Hematologic/Lymphatic: Reports as per HPI Allergic/Immunologic: Reports as per HPI, Denies allergic rhinitis, Denies anaphylaxis, Denies angioedema, Denies gluten intolerance, Denies persistent infections, Denies seasonal allergies, Denies urticaria, Denies wheezing Final diagnosis Plan: 1. Left breast cellulitis, current culture growing beta-hemolytic group C strep with history of enterococcus multidrug resistance, patient currently is on IV vancomycin which is sensitive based on last culture July 2020, however she complained of redness, and itchiness on the IV site, hence it was discontinued . Meropenem 1 g every 8 hours was started instead. consult with Dr. Martínez infectious disease, no need for surgical drainage at this time based on clinical examination, cultures in the blood negative Recommendation from Dr. Sy, discharged on cefazolin 2 g every 8 hours for 10 days, wound care at the wound clinic, nurse for long term infusion, and wound care with packing changes every 2 days, with Aquacel silver rope or product of choice from wound care [facility] [address], pending wound cultures today IV antibiotic per , top case assembler for infusion location 2. COPD with current tobacco use, without any exacerbation, continue meds from home Flovent 44, 3 Diabetes mellitus type 2, check for A1c, On Levemir 32 units at bedtime, NovoLog scale, patient is on metformin 4. History of significant skin infections in the past, with resulting necrotizing fasciitis in the left axilla, check for IgG a G and E levels, and immunofixation, need evaluate for immunodeficiency, 5. Rash and itching related to vancomycin, we are going to discontinue the vancomycin at this time, and start meropenem, 1 g every 8 hours. Infectious disease for antibiotic management 6. Hyperlipidemia, on Lipitor 40 mg at bedtime 7. GI prophylaxis and DVT prophylaxis Pepcid, and Lovenox Discharge Medication List Beclomethasone Dipropionate [Qvar 40 mcg/puff] 2 puff INHALATION RT-BID 08/19/14 [History] Furosemide [Lasix] 40 mg PO BID 08/19/14 [History] carvediloL [Coreg] 6.25 mg PO BID 08/19/14 [History] Aspirin 81 mg PO DAILY 07/16/20 [History] Atorvastatin [Lipitor] 40 mg PO HS 07/16/20 [History] metFORMIN HCL [Glucophage] 1,000 mg PO BID 07/16/20 [History] Gabapentin [Neurontin] 400 mg PO BID 11/12/20 [History] Insulin Glargine,Hum.rec.anlog [Lantus Solostar] 32 unit SQ HS 11/12/20 [History] methocarbamoL [Methocarbamol] 500 mg PO BID 11/12/20 [History] Folic Acid 0.4 mg PO DAILY 02/23/21 [History] Sennosides/Docusate Sodium [Senna Plus 8.6-50 mg Tablet] 1 tab PO DAILY 02/23/21 [History] ceFAZolin [Kefzol] 2 gm IVP Q8HR 10 Days #30 ml 02/27/21 [Rx] Patient Condition at Discharge: Fair Plan - Discharge Summary Discharge Rx Participant: No New Discharge Prescriptions: New ceFAZolin [Kefzol] 2 gm IVP Q8HR 10 Days #30 ml Continue Beclomethasone Dipropionate [Qvar 40 mcg/puff] 2 puff INHALATION RT-BID carvediloL [Coreg] 6.25 mg PO BID Furosemide [Lasix] 40 mg PO BID metFORMIN HCL [Glucophage] 1,000 mg PO BID Aspirin 81 mg PO DAILY Atorvastatin [Lipitor] 40 mg PO HS Gabapentin [Neurontin] 400 mg PO BID Insulin Glargine,Hum.rec.anlog [Lantus Solostar] 32 unit SQ HS Folic Acid 0.4 mg PO DAILY methocarbamoL [Methocarbamol] 500 mg PO BID Sennosides/Docusate Sodium [Senna Plus 8.6-50 mg Tablet] 1 tab PO DAILY Discharge Medication List Beclomethasone Dipropionate [Qvar 40 mcg/puff] 2 puff INHALATION RT-BID 08/19/14 [History] Furosemide [Lasix] 40 mg PO BID 08/19/14 [History] carvediloL [Coreg] 6.25 mg PO BID 08/19/14 [History] Aspirin 81 mg PO DAILY 07/16/20 [History] Atorvastatin [Lipitor] 40 mg PO HS 07/16/20 [History] metFORMIN HCL [Glucophage] 1,000 mg PO BID 07/16/20 [History] Gabapentin [Neurontin] 400 mg PO BID 11/12/20 [History] Insulin Glargine,Hum.rec.anlog [Lantus Solostar] 32 unit SQ HS 11/12/20 [History] methocarbamoL [Methocarbamol] 500 mg PO BID 11/12/20 [History] Folic Acid 0.4 mg PO DAILY 02/23/21 [History] Sennosides/Docusate Sodium [Senna Plus 8.6-50 mg Tablet] 1 tab PO DAILY 02/23/21 [History] ceFAZolin [Kefzol] 2 gm IVP Q8HR 10 Days #30 ml 02/27/21 [Rx] Follow up Appointment(s)/Referral(s): [facility], [NON-STAFF] - 1 Week [facility] Margarita duron [Primary Care Provider] - 1-2 days [facility] [NON-STAFF] - 3 Days (dr rea follows routine wound schedule) Dago Martínez MD [STAFF PHYSICIAN] - 10 Days Patient Instructions/Handouts: Cellulitis (DC) Discharge Disposition: HOME WITH HOME HEALTH SERVICES
[2021-02-27 11:32] LABS: Glucose,Whole Blood 114 mg/dL (75-99)
--- NOTE | 2021-02-27 13:51 | PN ---
PROGRESS NOTE DATE OF SERVICE: 02/27/2021 REASON FOR FOLLOWUP: Left breast cellulitis with group C strep. INTERVAL HISTORY: The patient is afebrile. The patient is breathing comfortably. Overall pain and discomfort to the left breast has decreased. No chest pain, shortness of breath or cough. No abdominal pain or diarrhea. PHYSICAL EXAMINATION: Blood pressure 129/69, pulse of 69, temperature 97.8. She is 94% on room air. GENERAL DESCRIPTION: General description is an elderly female up in the room in no distress. RESPIRATORY SYSTEM: Unlabored breathing. Clear to auscultation anteriorly. HEART: S1, S2. Regular rate and rhythm. ABDOMEN: Soft. No tenderness. LABS: No new labs have been obtained today. Culture with beta-hemolytic group C strep. DIAGNOSTIC IMPRESSION AND PLAN: Patient with left breast cellulitis with a wound to the left breast in this patient who did a history of a necrotizing infection . She is being treated with cefazolin 2 grams q.8 hours for 10 days and close outpatient followup. Local care with Aquacel Silver dressing. MMODL / IJN: [id number] /
[2021-02-27 14:16] VITALS: BP 114/71; PULSE 63; TEMP 98.8
== END 2021-02-27 15:30 | disposition home health service (06) | DRG 863 ==
LOC: EC 12:03 → 4SSUR 14:22 → 6NMEDSUR 19:39
PROVIDERS: ADMIT Family Medicine; ATTEND Family Medicine
PROC: 05HD33Z Insertion of Infusion Device into Right Cephalic Vein, Percutaneous Approach (ICD-10-PCS; principal; 2021-02-25 09:30)
DX: T81.40XA Infection following a procedure, unspecified, initial encounter (principal); E22.2 Syndrome of inappropriate secretion of antidiuretic hormone; Z16.29 Resistance to other single specified antibiotic; Z16.24 Resistance to multiple antibiotics; N61.0 Mastitis without abscess; E11.622 Type 2 diabetes mellitus with other skin ulcer; E66.01 Morbid (severe) obesity due to excess calories; E78.5 Hyperlipidemia, unspecified; F17.200 Nicotine dependence, unspecified, uncomplicated; F41.0 Panic disorder [episodic paroxysmal anxiety]; H54.61 Unqualified visual loss, right eye, normal vision left eye; H91.91 Unspecified hearing loss, right ear; I11.0 Hypertensive heart disease with heart failure; L98.492 Non-pressure chronic ulcer of skin of other sites with fat layer exposed; I50.9 Heart failure, unspecified; J44.9 Chronic obstructive pulmonary disease, unspecified
CPT/HCPCS: 36410; 36415; 76937; 80048; 82784; 82785; 83036; 85025; 86140; 87040; 87070; 87075; 87205; 94640; 99284

== ENCOUNTER 2023-03-22 18:46 | Emergency (ER) | payer MEDICARE, OTHER ==
[2023-03-22 19:02] VITALS: RESP 20
--- NOTE | 2023-03-22 19:23 | ED ---
Extremity Problem HPI - General Source: patient, family, RN notes reviewed Mode of arrival: ambulatory Limitations: no limitations - History of Present Illness MD Complaint: extremity swelling <Nereida Oconnor - Last Filed: 03/22/23 19:24> <Scout Andersen - Last Filed: 03/22/23 21:20> - General Chief complaint: Extremity Problem,Nontraumatic Stated complaint: left leg swollen Time Seen by Provider: 03/22/23 19:20 - History of Present Illness Initial comments: This is a 68 year old female who presents to the emergency department for left leg pain and swelling. This started out with itching a couple of days ago, and has since become swollen and painful. Denies any injuries. Also denies any chest pain or shortness of breath. (Nereida Oconnor) 68-year-old female with past medical history significant for peripheral vascular disease presents to ED with a chief complaint of leg swelling. Patient states over the last 2-3 days has had some itchiness of her left lower leg. Patient states over the past day or so reports itchiness has turned into pain and also notes that her leg has started to become more swollen. Denies fever. Denies chest pain or shortness of breath. No other complaints. (Scout Andersen) - Related Data Home Medications Medication Instructions Recorded Confirmed Beclomethasone Dipropionate [Qvar 2 puff INHALATION RT-BID 08/19/14 02/23/21 40 mcg/puff] Furosemide [Lasix] 40 mg PO BID 08/19/14 02/23/21 carvediloL [Coreg] 6.25 mg PO BID 08/19/14 02/23/21 Aspirin 81 mg PO DAILY 07/16/20 02/23/21 Atorvastatin [Lipitor] 40 mg PO HS 07/16/20 02/23/21 metFORMIN HCL [Glucophage] 1,000 mg PO BID 07/16/20 02/23/21 Gabapentin [Neurontin] 400 mg PO BID 11/12/20 02/23/21 Insulin Glargine,Hum.rec.anlog 32 unit SQ HS 11/12/20 02/23/21 [Lantus Solostar Pen] methocarbamoL [Methocarbamol] 500 mg PO BID 11/12/20 02/23/21 Folic Acid 0.4 mg PO DAILY 02/23/21 02/23/21 Sennosides/Docusate Sodium [Senna 1 tab PO DAILY 02/23/21 02/23/21 Plus 8.6-50 mg Tablet] Previous Rx's Medication Instructions Recorded ceFAZolin [Kefzol] 2 gm IVP Q8HR 10 Days #30 ml 02/27/21 Cephalexin [Keflex] 500 mg PO Q6HR 7 Days #28 cap 03/22/23 Allergies Allergy/AdvReac Type Severity Reaction Status Date / Time strawberry Allergy Intermediate Rash/Hives Verified 03/22/23 19:02 Review of Systems ROS Other: All systems not noted in ROS Statement are negative. <Nereida Oconnor - Last Filed: 03/22/23 19:24> ROS Other: All systems not noted in ROS Statement are negative. <Scout Andersen - Last Filed: 03/22/23 21:20> ROS Statement: Those systems with pertinent positive or pertinent negative responses have been documented in the HPI. Past Medical History Past Medical History: Heart Failure, COPD, Diabetes Mellitus, Eye Disorder, Hearing Disorder / Deafness, Hypertension, Musculoskeletal Disorder, Osteoarthritis (OA) Additional Past Medical History / Comment(s): deaf R ear; partially blind R eye, left breast infection. fell at home in november 2020. fx right femur. 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 wound vac on since end september 2020 to november 19. sees wound care centre every tuesday.then reapplied wound vac on december 2020. Jul 2020 had a boil and it broke and obtained a abscess. sent to [facility]. had 13 surgeries total. Past Anesthesia/Blood Transfusion Reactions: No Reported Reaction Past Psychological History: Anxiety, Panic Disorder Smoking Status: Current every day smoker Past Alcohol Use History: Occasional Past Drug Use History: None Reported - Past Family History Brother(s) Family Medical History: Cancer Mother Family Medical History: Coronary Artery Disease (CAD), Diabetes Mellitus <Nereida Oconnor - Last Filed: 03/22/23 19:24> General Exam Limitations: no limitations <Nereida Oconnor - Last Filed: 03/22/23 19:24> Limitations: language barrier (Hard of hearing) General appearance: alert, in no apparent distress, obese Eye exam: Present: normal appearance Neck exam: Present: normal inspection Respiratory exam: Present: normal lung sounds bilaterally Cardiovascular Exam: Present: regular rate, normal rhythm Extremities exam: Present: other (Referral vascular changes. Left lower extremity shows 2+ pitting edema all right lower sinus shows 1+ pitting edema. Left flexion me does show some erythema, warmth and edema. Erythema non- circumferential. DP/PT pulses 2+.) Neurological exam: Present: alert, oriented X3 Skin exam: Present: warm, dry <Scout Andersen - Last Filed: 03/22/23 21:20> - General Exam Comments Initial Comments: Visual Physical Exam Vital signs reviewed General: Well-appearing, nontoxic, no acute distress. Head: Normocephalic, atraumatic Eyes: PERRLA, EOMI ENT: Airway patent Chest: Nonlabored breathing Skin: No visual rash, normal skin tone Neuro: Alert and oriented 3 Musculoskeletal: No gross abnormalities I performed the QuickNote portion of this chart. Signed Nereida Oconnor PA-C. (Nereida Oconnor) Course Vital Signs 03/22/23 18:59 Temperature 98.1 F Pulse Rate 94 Respiratory 20 Rate Blood Pressure 119/66 O2 Sat by Pulse 95 Oximetry Medical Decision Making - Lab Data Result diagrams: 03/22/23 19:45 03/22/23 19:45 <Scout Andersen - Last Filed: 03/22/23 21:20> - Medical Decision Making Was pt. sent in by a medical professional or institution (MARYAN Gale, [employer], urgent care, hospital, or fci...) When possible be specific @ -No Did you speak to anyone other than the patient for history (EMS, parent, family, police, friend...)? What history was obtained from this source @ -No Did you review nursing and triage notes (agree or disagree)? Why? @ -I reviewed and agree with nursing and triage notes Were old charts reviewed (outside hosp., previous admission, EMS record, old EKG, old radiological studies, urgent care reports/EKG's, fci records)? Report findings @ -No old charts were reviewed Differential Diagnosis (chest pain, altered mental status, abdominal pain women, abdominal pain men, vaginal bleeding, weakness, fever, dyspnea, syncope, headache, dizziness, GI bleed, back pain, seizure, CVA, palpatations, mental health, musculoskeletal)? @ -Differential Musculoskeletal Muscular strain, contusion, ligament sprain, fracture, arthritis, septic arthritis, bursitis, cellulitis, muscle spasm, nerve compression, DVT, arterial occlusion, herpes zoster, electrolyte abnormality, tumor.... This is not meant to be in all inclusive list EKG interpreted by me (3pts min.). @ -None X-rays interpreted by me (1pt min.). @ -None done CT interpreted by me (1pt min.). @ -None done U/S interpreted by me (1pt. min.). @ -Doppler ultrasound shows no evidence of DVT. Interpreted by me. What testing was considered but not performed or refused? (CT, X-rays, U/S, labs)? Why? @ -None What meds were considered but not given or refused? Why? @ -None Did you discuss the management of the patient with other professionals (professionals i.e. , PA, [employer], lab, RT, psych nurse, criminal justice social worker, dimensional integration engineer, teacher, customer service security officer, keycase assembler)? Give summary @ -No Was smoking cessation discussed for >3mins.? @ -No Was critical care preformed (if so, how long)? @ -No Were there social determinants of health that impacted care today? How? (Homelessness, low income, unemployed, alcoholism, drug addiction, transportation, low edu. Level, literacy, decrease access to med. care, intermediate, rehab)? @ -No Was there de-escalation of care discussed even if they declined (Discuss DNR or withdrawal of care, Hospice)? DNR status @ -No What co-morbidities impacted this encounter? (DM, HTN, Smoking, COPD, CAD, Cancer, CVA, ARF, Chemo, Hep., AIDS, mental health diagnosis, sleep apnea, mo rbid obesity)? @ -Peripheral vascular disease Was patient admitted / discharged? Hospital course, mention meds given and route, prescriptions, significant lab abnormalities, going to OR and other pertinent info. @ -Discharge 68-year-old female with past medical history significant for peripheral vascular disease presents to the ED with a chief complaint of left leg swelling and pain. Doppler ultrasound shows no evidence of DVT. Laboratory studies significant for an elevated CRP of 1.8 however otherwise unremarkable chemistry panel and CBC. Exam does appear consistent with cellulitis. Patient will be right prescription for Keflex. At this time, vital signs stable afebrile and patient discharged home in stable condition. Discussed return precautions with patient and family who verbalizes agreement. Undiagnosed new problem with uncertain prognosis? @ -No Drug Therapy requiring intensive monitoring for toxicity (Heparin, Nitro, Insulin, Cardizem)? @ -No Were any procedures done? @ -No Diagnosis/symptom? @ -Cellulitis of left lower extremity Acute, or Chronic, or Acute on Chronic? @ -Acute Uncomplicated (without systemic symptoms) or Complicated (systemic symptoms)? @ -Uncomplicated Side effects of treatment? @ -No Exacerbation, Progression, or Severe Exacerbation? @ -No Poses a threat to life or bodily function? How? (Chest pain, [place], [place], pneumonia, PE, COPD, DKA, ARF, appy, cholecystitis, CVA, Diverticulitis, Homicidal, Suicidal, threat to staff... and all critical care pts) @ -No (Scout Andersen) - Lab Data Lab Results 03/22/23 03/22/23 03/22/23 Range/Units 19:45 19:45 19:45 WBC 9.8 (3.8-10.6) k/uL RBC 5.61 H (3.80-5.40) m/uL Hgb 17.5 H (11.4-16.0) gm/dL Hct 53.4 H (34.0-46.0) % MCV 95.2 (80.0-100.0) fL MCH 31.3 (25.0-35.0) pg MCHC 32.9 (31.0-37.0) g/dL RDW 14.7 (11.5-15.5) % Plt Count 246 (150-450) k/uL MPV 7.7 Neutrophils % 79 % Lymphocytes % 13 % Monocytes % 5 % Eosinophils % 2 % Basophils % 0 % Neutrophils # 7.7 (1.3-7.7) k/uL Lymphocytes # 1.3 (1.0-4.8) k/uL Monocytes # 0.5 (0-1.0) k/uL Eosinophils # 0.2 (0-0.7) k/uL Basophils # 0.0 (0-0.2) k/uL Sodium 140 (137-145) mmol/L Potassium 4.8 (3.5-5.1) mmol/L Chloride 110 H (98-107) mmol/L Carbon Dioxide 20 L (22-30) mmol/L Anion Gap 10 mmol/L BUN 18 H (7-17) mg/dL Creatinine 0.80 (0.52-1.04) mg/dL Est GFR (CKD-EPI)AfAm 88 (>60 ml/min/1.73 sqM) Est GFR (CKD-EPI)NonAf 77 (>60 ml/min/1.73 sqM) Glucose 121 H (74-99) mg/dL Plasma Lactic Acid Mike 1.2 (0.7-2.0) mmol/L Calcium 9.2 (8.4-10.2) mg/dL Total Bilirubin 0.5 (0.2-1.3) mg/dL AST 23 (14-36) U/L ALT 26 (4-34) U/L Alkaline Phosphatase 107 (38-126) U/L C-Reactive Protein 1.8 H (<1.0) mg/dL Total Protein 7.9 (6.3-8.2) g/dL Albumin 4.0 (3.5-5.0) g/dL Disposition <Nereida Oconnor - Last Filed: 03/22/23 19:24> Is patient prescribed a controlled substance at d/c from ED?: No Time of Disposition: 21:20 <Scout Andersen - Last Filed: 03/22/23 21:20> Clinical Impression: Cellulitis Disposition: HOME SELF-CARE Condition: Good Instructions (If sedation given, give patient instructions): Cellulitis (ED) Additional Instructions: Please return to the Emergency Department if symptoms worsen or any other concerns. Prescriptions: Cephalexin [Keflex] 500 mg PO Q6HR 7 Days #28 cap Referrals: None,Stated [Primary Care Provider] - 1-2 days
[2023-03-22 20:05] LABS: Basophils % (A) 0 %; Eosinophils # (A) 0.2 k/uL (0-0.7); Eosinophils % (A) 2 %; HCT 53.4 % (34.0-46.0); HGB 17.5 gm/dL (11.4-16.0); Lymphocytes # (A) 1.3 k/uL (1.0-4.8); Lymphocytes % (A) 13 %; MCH 31.3 pg (25.0-35.0); MCHC 32.9 g/dL (31.0-37.0); MCV 95.2 fL (80.0-100.0); Mean Platelet Volume 7.7; Monocytes # (A) 0.5 k/uL (0-1.0); Monocytes % (A) 5 %; Neutrophils # (A) 7.7 k/uL (1.3-7.7); Neutrophils % (A) 79 %; Platelet Count 246 k/uL (150-450); RBC 5.61 m/uL (3.80-5.40); RDW 14.7 % (11.5-15.5); WBC 9.8 k/uL (3.8-10.6)
[2023-03-22 20:14] LABS: ALT 26 U/L (4-34); AST 23 U/L (14-36); African American GFR (CKD) 88 (>60 ml/min/1.73 sqM); Alkaline Phosphatase 107 U/L (38-126); Anion Gap 10 mmol/L; Blood Urea Nitrogen 18 mg/dL (7-17); Calcium 9.2 mg/dL (8.4-10.2); Carbon Dioxide 20 mmol/L (22-30); Chloride 110 mmol/L (98-107); Glucose 121 mg/dL (74-99); Non-African American GFR(CKD) 77 (>60 ml/min/1.73 sqM); Potassium 4.8 mmol/L (3.5-5.1); Sodium 140 mmol/L (137-145); Total Bilirubin 0.5 mg/dL (0.2-1.3); Total Protein 7.9 g/dL (6.3-8.2)
--- NOTE | 2023-03-22 20:25 | US ---
EXAMINATION TYPE: US venous doppler duplex LE LT DATE OF EXAM: 03/22/2023 8:07 PM COMPARISON: 08/01/14 CLINICAL INDICATION: Female, 68 years old with history of Leg pain and swelling; Left calf redness an d swelling. No hx of DVT. Takes aspirin daily SIDE PERFORMED: Left TECHNIQUE: The lower extremity deep venous system is examined utilizing real time linear array sonog bayron with graded compression, doppler sonography and color-flow sonography. VESSELS IMAGED: Common Femoral Vein Deep Femoral Vein Greater Saphenous Vein * Femoral Vein Popliteal Vein Small Saphenous Vein * Proximal Calf Veins (* superficial vessels) Left Leg: No evidence for DVT. Edema in calf noted IMPRESSION: Grayscale, color doppler, spectral doppler imaging performed of the deep veins of the lo wer extremities. There is normal flow, compressibility, vascular waveforms.
[2023-03-22 20:45] LABS: C Reactive Protein 1.8 mg/dL (<1.0)
[2023-03-22] MEDS ORDERED: KETOROLAC 15 MG/ML 1 ML VIAL IM STA (21:21)
[2023-03-22 21:44] VITALS: BP 123/70; PULSE 86; TEMP 97.9
== END 2023-03-22 22:06 | disposition home or self-care (01) ==
LOC: EC 18:46
DX: L03.116 Cellulitis of left lower limb (principal); I11.0 Hypertensive heart disease with heart failure; I50.9 Heart failure, unspecified; J44.9 Chronic obstructive pulmonary disease, unspecified; E11.9 Type 2 diabetes mellitus without complications; F17.200 Nicotine dependence, unspecified, uncomplicated; Z79.82 Long term (current) use of aspirin; Z86.59 Personal history of other mental and behavioral disorders; Z79.899 Other long term (current) drug therapy; Z79.84 Long term (current) use of oral hypoglycemic drugs; Z79.4 Long term (current) use of insulin; Z91.018 Allergy to other foods; Z90.49 Acquired absence of other specified parts of digestive tract
CPT/HCPCS: 36415; 80053; 83605; 85025; 86140; 93971; 99284; 96372; J1885